=== PATIENT | female | born 1980 | race Caucasian/White ===

== ENCOUNTER → 2017-06-27 | Outpatient (CLI) | payer OTHER | END | disposition home or self-care (01) | LOC: C.PATHSPEC 17:24 | PROVIDERS: ATTEND Urology | DX: R31.9 Hematuria, unspecified (principal) ==

== ENCOUNTER → 2017-07-10 | Outpatient (CLI) | payer OTHER ==
[~2017-07-10] MED LIST: FUROSEMIDE INJ 10 MG/ML 2 ML VIAL IV ONE
--- NOTE | 2017-07-10 13:29 | DIAGNOSTIC IMAGING REPORT ---
RENAL SCAN DIURETIC (MAG 3) CLINICAL HISTORY: N13.30 HydronephrosisNO PRECERT REQUIRED PER [id number] hydronephrosis TECHNIQUE: Multi phase evaluation following the administration of 8.6 mCi technetium 99m MAG3. COMPARISON STUDY: None FINDINGS: Unremarkable vascular flow to both kidneys. Washout characteristics are unremarkable. Appropriate response to Lasix administration. No evidence for hydronephrosis or obstructive change. Split renal function demonstrates left contribute 52% and right 48% of total activity. IMPRESSION: 1. Normal study with generally symmetric vascular flow and washout characteristics. 2. Normal response to Lasix. 3. Split renal function demonstrates the left kidney to contribute 52% and the right 48% to total activity 4. No evidence for obstructive change or hydronephrosis within limitations of this exam. The above report was generated using voice recognition software. It may contain grammatical, syntax or spelling errors. Electronically signed by: Manuelito Rizvi M.D. 07/10/2017 1:28 PM Dictated Date/Time: 07/10/2017 1:25 PM
== END | disposition home or self-care (01) ==
LOC: C.NUCL 11:49
PROVIDERS: ATTEND Urology
DX: N13.30 Unspecified hydronephrosis (principal)

== ENCOUNTER 2022-11-02 20:53 | Inpatient (IN) ==
[2022-11-02 22:25] LABS: Albumin Globulin Ratio 1.4 (0.9-2); BUN Creatinine Ratio 19.5 (10-20); Bilirubin,Total 0.7 mg/dl (0.2-1.0); Calcium 9.2 mg/dl (8.6-10.3); Creatinine Clr Calc Pharmacy 93.8 ml/min; Est GFR (African American) 102.3 ml/min; Est GFR (Non-African American) 88.3 ml/min; Globulin 2.9 gm/dl (2.5-4.0); Potassium 3.4 mmol/L (3.5-5.1); Total Protein 6.9 gm/dl (6.0-8.3)
[2022-11-02 22:31] LABS: Troponin I High Sensitivity 3.9 pg/ml (0-14)
[2022-11-02 22:32] LABS: Partial Thromboplastin Ratio 1.1; Prothrombin Time 11.1 Seconds (9.0-12.0)
[2022-11-02 22:44] LABS: Hematocrit (blood only) 35.8 % (37.0-47.0); Hemoglobin 12.6 g/dl (12.0-16.0); Lyme Ab IgG w/WB Rflx Negative (Negative); Lyme Ab IgM w/WB Rflx Negative (Negative); Mean Corpuscular Hemoglobin 26.8 pg (25.0-34.0); Mean Corpuscular Hgb Conc 35.2 g/dL (32.0-36.0); Mean Corpuscular Volume 76.2 fL (80.0-100.0); Platelet Count 63 K/uL (130-400); RDW Coefficient of Variation 16.8 % (11.5-14.5); RDW Standard Deviation 46.5 fL (36.4-46.3)
[2022-11-02 22:51] LABS: Basophils # (auto) 0.02 K/uL (0-0.2); Basophils % (auto) 1.3 %; Eosinophils # (auto) 0.04 K/uL (0-0.50); Eosinophils % (auto) 2.5 %; Immature Granulocytes # (auto) 0.01 K/uL (0.01-0.20); Immature Granulocytes % (auto) 0.6 %; Lymphocytes % (auto) 31.3 %; Monocytes # (auto) 0.22 K/uL (0.11-0.59); Monocytes % (auto) 13.8 %; Neutrophils # (auto) 0.81 K/uL (1.40-6.50); Neutrophils % (auto) 50.5 %; Platelet Estimate Decreased (Normal)
[2022-11-02] MEDS ORDERED: DOXYCYCLINE HYCLATE 100 MG CAP PO STA (22:54)
[2022-11-02] MEDS ORDERED: SODIUM CHLORIDE 0.9% 1000ML 1,000 ML IV SCH (23:00)
[2022-11-02 23:07] LABS: Appearance Urine Cloudy (Clear); Bilirubin Urine Negative (Negative); Blood Urine 3+ (Negative); Color Urine Yellow; Glucose Urine UA Negative (Negative); Ketones Urine Negative (Negative); Leukocyte Esterase Urine Trace (Negative); Nitrite Urine Negative (Negative); Protein Urine 1+ (Negative); Specific Gravity Urine 1.006 (1.000-1.030); Urobilinogen Urine Negative (Negative)
--- NOTE | 2022-11-02 23:13 | Emergency Department Note ---
Impression & Plan Acute hyponatremia, Neutropenia, Fatigue, Myalgia ED Provider Note Provider: Magdaleno Mayes MD DATE OF SERVICE: 11/02/2022 CHIEF COMPLAINT: Myalgias, fatigue HISTORY OF PRESENT ILLNESS: Patient is a 42-year-old female history of hypertension presenting here referred from [facility] urgent care due to abnormal labs today. Patient evidently began with some fever myalgias with some headache on Sunday. Had a fever to 102. Maybe a slight sore throat and slight cough according to her. Went to care works for evaluation yesterday. Has been hiking recently but no recent travel. No sick contacts noted. Has a history of some blood in the urine and when she is ill she notices this and has noticed it recently. Denies significant urinary burning. Had outpatient labs obtained. Negative strep by report. Started on cefdinir in case there was any urine infection however or strep present. Lyme test was pending. Had blood work sent today with evidence of leukopenia newly as well as hyponatremia. Sent in for evaluation. States has been able to hydrate fairly well. Denies significant GI symptoms. Little more bilateral neck pain today but moving the head freely. No trauma or syncope. No palpitations of significance noted. Has been taking cefdinir today. PAST MEDICAL HISTORY: As noted above MEDICATIONS: Reviewed home medications SOCIAL HISTORY: PHYSICAL EXAM: GENERAL: alert and oriented in no acute distress on stretcher Head: normocephalic and atraumatic EYES: No injection, discharge or icterus. NECK: Trachea midline. Supple. ENT: Mucous membranes pink and moist. LUNGS: Airway patent. No retractions or tachypnea HEART: Regular rate and rhythm. No chest wall tenderness ABDOMEN: Soft and non-tender, without guarding or rebound. SKIN: Acyanotic, warm, dry, without rashes EXTREMITIES: Without swelling, tenderness or deformity NEUROLOGICAL: No focal deficits. No aphasia. No facial droop or slurred speech. Normal strength and tone in the extremities. Sensation to gross touch normal. Ambulatory. EK bpm normal sinus rhythm. No PVC. No acute ST segment elevation or depression with QTc of 428. Nonspecific anterior T wave changes. CONTINUOUS CARDIAC MONITORING: was ordered and showed a heart rate of 70s bpm in normal sinus rhythm Patient's laboratory studies and imaging reviewed. Differential includes Infection, dehydration, metabolic abnormality, hypo/hyperglycemia, electrolyte disturbance, anemia, hypoxia, cardiac sources, neurologic, as well as other pathologies. IMPRESSION/MEDICAL DECISION MAKING: Patient with some nonspecific infectious symptoms. From the [facility] epic record record reviewed labs with a Lyme pending. Send a Lyme here which was negative. Seems concerning for anaplasmosis and smear was sent. Urinalysis with some blood but not clearly infected. Sent for culture. Leukopenia today with thrombocytopenia. No significant anemia. Hyponatremia noted. Has been hydrating well. Osmolality sent. Will empirically start on doxycycline at this time. Started on some IV fluid replenishment. Not acutely confused but given the trend concern for possible worsening hyponatremia discussed with her further observation overnight. Does not appear meningitic to me. Benign abdomen otherwise. Not having significant respiratory symptoms and doubt pneumonia. Has barely seen nephrology regarding her hematuria and there is questions of IgA nephropathy but undergoing work-up with [facility] for this. Does not seem to be in any acute renal failure. DIAGNOSIS: Hyponatremia, thrombocytopenia, leukopenia/neutropenia DISPOSITION: Hospitalist will evaluate Patient was agreeable with this plan. Past Med/Surg History Medical History (Updated 11/02/22 @ 23:31 by Magdaleno Mayes M.D.) ADD (attention deficit disorder) without hyperactivity Surgical History (Updated 12/20/20 @ 15:37 by Nay Michaud RN) History of dental surgery Social History Smoking Status: Never smoker Preferred Language: Greek Feels Safe at Home: Yes Allergies Allergies Allergy/AdvReac Type Severity Reaction Status Date / Time ciprofloxacin Allergy Verified 09/20/20 09:10 corn syrup Allergy Verified 12/20/20 15:36 soy Allergy fatigue, Verified 12/20/20 15:36 headache, nausea, vomiting wheat Allergy fatigue Verified 12/20/20 15:36 and headache FLUROQUIONODE Allergy Unknown UKN Uncoded 09/20/20 08:59 Home Meds Home Medications Medication Instructions Recorded Confirmed chlorpheniramine maleate 4 mg 4 mg PO Q6H PRN 09/20/20 09/20/20 tablet losartan 25 mg tablet 25 mg PO DAILY 09/20/20 09/20/20 Results & Data (ED) Vital Signs Vital Signs - 24 hr 11/02/22 20:54 11/02/22 21:47 11/02/22 22:24 Temperature 36.8 C Temperature Source Temporal Artery Scan Pulse Rate 66 73 Pulse Rate from SpO2 Sensor Pulse Rhythm Respiratory Rate 17 Respiratory Effort / Characteristics Non-Labored Spontaneous Non-Labored Respiratory Depth Normal Normal Blood Pressure 148/101 H Blood Pressure Mean 116 Blood Pressure Position Sitting Pulse Oximetry 98 Oxygen Delivery Method Room Air Sepsis Recent Fever Within 48 Hours Yes Sepsis New/Unexplained Change in Mental Status No Sepsis Action Taken by Nursing No Action Required 11/02/22 22:24 11/02/22 21:48 11/02/22 22:00 Temperature Temperature Source Pulse Rate 75 71 Pulse Rate from SpO2 Sensor 75 71 Pulse Rhythm Regular Respiratory Rate 17 22 Respiratory Effort / Characteristics Respiratory Depth Blood Pressure 144/96 H Blood Pressure Mean 112 Blood Pressure Position Pulse Oximetry 98 97 Oxygen Delivery Method Room Air Room Air Sepsis Recent Fever Within 48 Hours Sepsis New/Unexplained Change in Mental Status Sepsis Action Taken by Nursing 11/02/22 22:15 11/02/22 22:31 11/02/22 22:57 Temperature Temperature Source Pulse Rate 73 80 72 Pulse Rate from SpO2 Sensor 73 77 Pulse Rhythm Respiratory Rate 18 20 21 Respiratory Effort / Characteristics Respiratory Depth Blood Pressure 142/122 H 141/98 H Blood Pressure Mean 128 112 Blood Pressure Position Pulse Oximetry 98 96 98 Oxygen Delivery Method Room Air Room Air Sepsis Recent Fever Within 48 Hours Sepsis New/Unexplained Change in Mental Status Sepsis Action Taken by Nursing 11/02/22 23:00 11/02/22 23:31 Temperature Temperature Source Pulse Rate 72 69 Pulse Rate from SpO2 Sensor 72 69 Pulse Rhythm Respiratory Rate 22 22 Respiratory Effort / Characteristics Respiratory Depth Blood Pressure 153/96 H 138/84 Blood Pressure Mean 115 102 Blood Pressure Position Pulse Oximetry 99 99 Oxygen Delivery Method Room Air Room Air Sepsis Recent Fever Within 48 Hours Sepsis New/Unexplained Change in Mental Status Sepsis Action Taken by Nursing Laboratory Data 11/02/22 21:40 11/02/22 21:40 Lab Results 11/02/22 11/02/22 11/02/22 Range/Units 21:40 21:40 21:40 WBC 1.60 L (4.8-10.8) K/ul RBC 4.70 (4.20-5.40) M/uL Hgb 12.6 (12.0-16.0) g/dl Hct 35.8 L (37.0-47.0) % MCV 76.2 L (80.0-100.0) fL MCH 26.8 (25.0-34.0) pg MCHC 35.2 (32.0-36.0) g/dL RDW Std Deviation 46.5 H (36.4-46.3) fL RDW Coeff of [place] 16.8 H (11.5-14.5) % Plt Count 63 L (130-400) K/uL Immature Gran % (Auto) 0.6 % Neut % (Auto) 50.5 % Lymph % (Auto) 31.3 % [place] % (Auto) 13.8 % Eos % (Auto) 2.5 % Baso % (Auto) 1.3 % Neut # (Auto) 0.81 L* (1.40-6.50) K/uL Lymph # (Auto) 0.50 L (1.2-3.4) K/uL [place] # (Auto) 0.22 (0.11-0.59) K/uL Eos # (Auto) 0.04 (0-0.50) K/uL Baso # (Auto) 0.02 (0-0.2) K/uL Immature Gran # (Auto) 0.01 (0.01-0.20) K/uL Platelet Estimate Decreased L (Normal) PT 11.1 (9.0-12.0) Seconds INR 1.0 (0.9-1.1) APTT 30.0 (21.0-31.0) Seconds PTT Ratio 1.1 Sodium 128 L (136-145) mmol/L Potassium 3.4 L (3.5-5.1) mmol/L Chloride 92 L (98-107) mmol/L Carbon Dioxide 27 (21-32) mmol/L Anion Gap 9 (3-11) BUN 16 (6-23) mg/dl Creatinine 0.82 (0.6-1.2) mg/dl Est Cr Clr Drug Dosing 93.8 ml/min Est GFR ( Amer) 102.3 ml/min Est GFR (Non-Af Amer) 88.3 ml/min BUN/Creatinine Ratio 19.5 (10-20) Glucose 109 H (70-99(Fasting)) mg/dl Osmolality (280-300) mOsm/kg Calcium 9.2 (8.6-10.3) mg/dl Total Bilirubin 0.7 (0.2-1.0) mg/dl AST 36 (13-39) U/L ALT 30 (7-52) U/L Alkaline Phosphatase 51 (34-104) U/L Troponin I High Sens 3.9 (0-14) pg/ml Total Protein 6.9 (6.0-8.3) gm/dl Albumin 4.0 (3.4-5.0) gm/dl Globulin 2.9 (2.5-4.0) gm/dl Albumin/Globulin Ratio 1.4 (0.9-2) TSH (0.300-4.500) uIu/ml Urine Color Urine Appearance (Clear) Urine pH (4.5-7.5) Ur Specific [place] (1.000-1.030) Urine Protein (Negative) Urine Glucose (UA) (Negative) Urine Ketones (Negative) Urine Blood (Negative) Urine Nitrite (Negative) Urine Bilirubin (Negative) Urine Urobilinogen (Negative) Ur Leukocyte Esterase (Negative) Urine WBC (Auto) (0-5) /hpf Urine RBC (Auto) (0-4) /hpf U Hyaline Cast (Auto) (0-5) /lpf U Epithel Cells (Auto) (0-5) /lpf Urine Bacteria (Auto) (Negative) Urine Osmolality (500-800) mOsm/kg Anaplasma Smear Lyme Disease IgG Ab (Negative) Lyme Disease IgM Ab (Negative) 11/02/22 11/02/22 11/02/22 Range/Units 21:40 21:40 21:40 WBC (4.8-10.8) K/ul RBC (4.20-5.40) M/uL Hgb (12.0-16.0) g/dl Hct (37.0-47.0) % MCV (80.0-100.0) fL MCH (25.0-34.0) pg MCHC (32.0-36.0) g/dL RDW Std Deviation (36.4-46.3) fL RDW Coeff of [place] (11.5-14.5) % Plt Count (130-400) K/uL Immature Gran % (Auto) % Neut % (Auto) % Lymph % (Auto) % [place] % (Auto) % Eos % (Auto) % Baso % (Auto) % Neut # (Auto) (1.40-6.50) K/uL Lymph # (Auto) (1.2-3.4) K/uL [place] # (Auto) (0.11-0.59) K/uL Eos # (Auto) (0-0.50) K/uL Baso # (Auto) (0-0.2) K/uL Immature Gran # (Auto) (0.01-0.20) K/uL Platelet Estimate (Normal) PT (9.0-12.0) Seconds INR (0.9-1.1) APTT (21.0-31.0) Seconds PTT Ratio Sodium (136-145) mmol/L Potassium (3.5-5.1) mmol/L Chloride (98-107) mmol/L Carbon Dioxide (21-32) mmol/L Anion Gap (3-11) BUN (6-23) mg/dl Creatinine (0.6-1.2) mg/dl Est Cr Clr Drug Dosing ml/min Est GFR ( Amer) ml/min Est GFR (Non-Af Amer) ml/min BUN/Creatinine Ratio (10-20) Glucose (70-99(Fasting)) mg/dl Osmolality 267 L (280-300) mOsm/kg Calcium (8.6-10.3) mg/dl Total Bilirubin (0.2-1.0) mg/dl AST (13-39) U/L ALT (7-52) U/L Alkaline Phosphatase (34-104) U/L Troponin I High Sens (0-14) pg/ml Total Protein (6.0-8.3) gm/dl Albumin (3.4-5.0) gm/dl Globulin (2.5-4.0) gm/dl Albumin/Globulin Ratio (0.9-2) TSH 3.519 (0.300-4.500) uIu/ml Urine Color Urine Appearance (Clear) Urine pH (4.5-7.5) Ur Specific [place] (1.000-1.030) Urine Protein (Negative) Urine Glucose (UA) (Negative) Urine Ketones (Negative) Urine Blood (Negative) Urine Nitrite (Negative) Urine Bilirubin (Negative) Urine Urobilinogen (Negative) Ur Leukocyte Esterase (Negative) Urine WBC (Auto) (0-5) /hpf Urine RBC (Auto) (0-4) /hpf U Hyaline Cast (Auto) (0-5) /lpf U Epithel Cells (Auto) (0-5) /lpf Urine Bacteria (Auto) (Negative) Urine Osmolality (500-800) mOsm/kg Anaplasma Smear Lyme Disease IgG Ab Negative (Negative) Lyme Disease IgM Ab Negative (Negative) 11/02/22 11/02/22 11/02/22 Range/Units 21:40 22:57 22:57 WBC (4.8-10.8) K/ul RBC (4.20-5.40) M/uL Hgb (12.0-16.0) g/dl Hct (37.0-47.0) % MCV (80.0-100.0) fL MCH (25.0-34.0) pg MCHC (32.0-36.0) g/dL RDW Std Deviation (36.4-46.3) fL RDW Coeff of [place] (11.5-14.5) % Plt Count (130-400) K/uL Immature Gran % (Auto) % Neut % (Auto) % Lymph % (Auto) % [place] % (Auto) % Eos % (Auto) % Baso % (Auto) % Neut # (Auto) (1.40-6.50) K/uL Lymph # (Auto) (1.2-3.4) K/uL [place] # (Auto) (0.11-0.59) K/uL Eos # (Auto) (0-0.50) K/uL Baso # (Auto) (0-0.2) K/uL Immature Gran # (Auto) (0.01-0.20) K/uL Platelet Estimate (Normal) PT (9.0-12.0) Seconds INR (0.9-1.1) APTT (21.0-31.0) Seconds PTT Ratio Sodium (136-145) mmol/L Potassium (3.5-5.1) mmol/L Chloride (98-107) mmol/L Carbon Dioxide (21-32) mmol/L Anion Gap (3-11) BUN (6-23) mg/dl Creatinine (0.6-1.2) mg/dl Est Cr Clr Drug Dosing ml/min Est GFR ( Amer) ml/min Est GFR (Non-Af Amer) ml/min BUN/Creatinine Ratio (10-20) Glucose (70-99(Fasting)) mg/dl Osmolality (280-300) mOsm/kg Calcium (8.6-10.3) mg/dl Total Bilirubin (0.2-1.0) mg/dl AST (13-39) U/L ALT (7-52) U/L Alkaline Phosphatase (34-104) U/L Troponin I High Sens (0-14) pg/ml Total Protein (6.0-8.3) gm/dl Albumin (3.4-5.0) gm/dl Globulin (2.5-4.0) gm/dl Albumin/Globulin Ratio (0.9-2) TSH (0.300-4.500) uIu/ml Urine Color Yellow Urine Appearance Cloudy A (Clear) Urine pH 7.0 (4.5-7.5) Ur Specific [place] 1.006 (1.000-1.030) Urine Protein 1+ H (Negative) Urine Glucose (UA) Negative (Negative) Urine Ketones Negative (Negative) Urine Blood 3+ H (Negative) Urine Nitrite Negative (Negative) Urine Bilirubin Negative (Negative) Urine Urobilinogen Negative (Negative) Ur Leukocyte Esterase Trace H (Negative) Urine WBC (Auto) 5-10 H (0-5) /hpf Urine RBC (Auto) >30 H (0-4) /hpf U Hyaline Cast (Auto) 0 (0-5) /lpf U Epithel Cells (Auto) 10-20 H (0-5) /lpf Urine Bacteria (Auto) Negative (Negative) Urine Osmolality 155 L (500-800) mOsm/kg Anaplasma Smear See Comment Lyme Disease IgG Ab (Negative) Lyme Disease IgM Ab (Negative) Administered Medications Discontinued Medications Doxycycline Hyclate (Doxycycline Hyclate 100 Mg Cap) 100 mg PO NOW STA Stop: 11/02/22 22:55 Last Admin: 11/02/22 23:44 Dose: 100 mg Documented By: VÍCTOR Sodium Chloride (Nss 1000ml) 1,000 mls @ 80 mls/hr IV .[id number] JAIME Stop: 12/02/22 22:59 Last Admin: 11/02/22 23:42 Dose: 80 mls/hr Documented By: VÍCTOR Discharge Plan Visit Data Chief Complaint: Abnormal Labs/Diagnostic Testing Stated Complaint: REF BY DOC,ELECTROLYTE INBALANCE,FEVER ED Provider: Magdaleno Mayes Discharge Problem: Acute hyponatremia, Neutropenia, Fatigue, Myalgia Patient Disposition: Being Evaluated by Hospitalist Forms Stand Alone Forms: [facility] [employer] Prescriptions Prescriptions: No Action losartan 25 mg tablet 25 mg PO DAILY chlorpheniramine maleate 4 mg tablet 4 mg PO Q6H PRN Referrals Referrals: Tosha Vaca MD [Primary Care Provider] - Neutropenia Qualifiers: Neutropenia type: unspecified Qualified Code(s): D70.9 - Neutropenia, unspecified Fatigue Qualifiers: Fatigue type: unspecified Qualified Code(s): R53.83 - Other fatigue
[2022-11-02 23:18] LABS: Cast Urine Automated 0 /lpf (0-5); RBC Urine Automated >30 /hpf (0-4)
[2022-11-02 23:19] LABS: Bacteria Urine Automated Negative (Negative)
[2022-11-02] MEDS ORDERED: POTASSIUM CHLORIDE PWD 20 MEQ PACK PO STA (23:28)
[2022-11-02] MEDS ORDERED: SODIUM CHLORIDE 0.9% 1000ML 500 ML IV ONE (23:56)
[2022-11-03 00:22] LABS: Magnesium 1.9 mg/dl (1.7-2.4)
--- NOTE | 2022-11-03 01:14 | History & Physical Report ---
Date of Service November 03, 2022 Assessment & Plan (1) Acute hyponatremia: Plan: Secondary to complicated UTI, no sepsis for now Rule out tickborne infection given leukopenia and thrombocytopenia CBC hypertension, stable Hypokalemia secondary to illness ADD, stable on as needed methylphenidate for now gestational DM as per records possible IgA nephropathy as per records, renal biopsy recommended [facility] Nephrology past tobacco abuse Medical telemetry Careful correction of sodium Urine CS, Ceftriaxone Follow peripheral blood smear, outpatient tickborne panel results Replace potassium DVT prophylaxis. SCDs Re: Thrombocytopenia Full code Text document was generated using [employer] voice recognition software. It may contain grammatical or spelling errors. Kindly contact undersigned for clarification of any documentation item in question. History of Present Illness Chief Complaint: Abnormal blood work Primary Care Provider: Tosha Vaca MD History obtained from patient and records. Medical history significant for hypertension, ADD, gestational DM as per records, hematuria (possible IgA nephropathy as per records), past tobacco abuse. Few days history of fever, chills, slight sore throat, headache, muscle aches, and nausea. Hematuria with some flank pain. Patient not sure about recent tick bites but exposed to ticks due to her love for the outdoors. Patient seen at urgent care center 2 days ago. Patient started on cefdinir course for possible UTI. Some improvement in symptoms. Outpatient COVID and strep tests negative. Urine CS no growth. Patient noted to be leukopenic and thrombocytopenic on outpatient blood work, Serum sodium noted to be 128. Tickborne panel pending. Patient directed to ER for evaluation. IV doxycycline administered in ER for possible tickborne infection. 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 Allergies Allergy/AdvReac Type Severity Reaction Status Date / Time ciprofloxacin Allergy Verified 09/20/20 09:10 corn syrup Allergy Verified 12/20/20 15:36 soy Allergy fatigue, Verified 12/20/20 15:36 headache, nausea, vomiting wheat Allergy fatigue Verified 12/20/20 15:36 and headache FLUROQUIONODE Allergy Unknown UKN Uncoded 09/20/20 08:59 Home Medications Medication Instructions Recorded Confirmed Type dextroamphetamine-amphetamine 12.5 12.5 mg PO BID 11/03/22 11/03/22 History mg tablet (Adderall) indapamide 1.25 mg tablet 1.25 mg PO DAILY 11/03/22 11/03/22 History losartan 50 mg tablet 100 mg PO DAILY 11/03/22 11/03/22 History methylphenidate HCl 20 mg biphasic 30 mg PO DAILY 11/03/22 11/03/22 History 30-70 capsule,extended release propranolol 10 mg tablet 10 mg PO QID PRN Anxiety 11/03/22 11/03/22 History Past Med/Surg History Medical History (Updated 11/02/22 @ 23:31 by Magdaleno Mayes M.D.) ADD (attention deficit disorder) without hyperactivity Surgical History (Updated 12/20/20 @ 15:37 by Nay Michaud RN) History of dental surgery Social History Smoking Status: Never smoker Hx Alcohol Use: Yes Alcohol type: beer, wine, hard liquor and other Hx Substance Use: No Preferred Language: Nauruan Communication Ability: Effective Deputy Fire Marshal Required: No Beliefs That Will Affect Care: None Current Living Situation: Spouse and Family Other Information That Helps Us Care for You: No Feels Safe at Home: Yes Safety Concerns: Feels Safe At This Time Assistive Devices: None Review of Systems Review of Systems: As per HPI, all other systems reviewed and negative Physical Exam Physical Exam: GENERAL: Comfortable, pleasant, no respiratory distress SKIN: Normal color, warm HEENT: [place] palpebral conjunctivae, no ptosis, dry buccal mucosa NECK : Supple, no tenderness CHEST : CTA, no tenderness HEART : RRR, no obvious murmurs ABDOMEN: Some distention, nontender EXTREMITIES : No LE swelling/tenderness, no other conspicuous deformities noted NEUROLOGIC : Coherent, no facial asymmetry, no other gross focality Results & Data Results & Data Vital Signs (Past 12 Hours) Vital Signs Temp Pulse Resp BP Pulse Ox O2 Del Method 11/03/22 00:01 71 16 137/87 99 Room Air 11/02/22 23:31 69 22 138/84 99 Room Air 11/02/22 23:00 72 22 153/96 H 99 Room Air 11/02/22 22:57 72 21 141/98 H 98 Room Air 11/02/22 22:31 80 20 142/122 H 96 Room Air 11/02/22 22:15 73 18 98 11/02/22 22:00 71 22 144/96 H 97 Room Air 11/02/22 21:48 75 17 98 11/02/22 22:24 Room Air 11/02/22 21:47 73 11/02/22 20:54 36.8 C 66 17 148/101 H 98 Room Air Laboratory Results Laboratory Results WBC 1.60 K/ul (4.8-10.8) L 11/02/22 21:40 RBC 4.70 M/uL (4.20-5.40) 11/02/22 21:40 Hgb 12.6 g/dl (12.0-16.0) 11/02/22 21:40 Hct 35.8 % (37.0-47.0) L 11/02/22 21:40 MCV 76.2 fL (80.0-100.0) L 11/02/22 21:40 MCH 26.8 pg (25.0-34.0) 11/02/22 21:40 MCHC 35.2 g/dL (32.0-36.0) 11/02/22 21:40 RDW Std Deviation 46.5 fL (36.4-46.3) H 11/02/22 21:40 RDW Coeff of [place] 16.8 % (11.5-14.5) H 11/02/22 21:40 Plt Count 63 K/uL (130-400) L 11/02/22 21:40 Immature Gran % (Auto) 0.6 % 11/02/22 21:40 Neut % (Auto) 50.5 % 11/02/22 21:40 Lymph % (Auto) 31.3 % 11/02/22 21:40 [place] % (Auto) 13.8 % 11/02/22 21:40 Eos % (Auto) 2.5 % 11/02/22 21:40 Baso % (Auto) 1.3 % 11/02/22 21:40 Neut # (Auto) 0.81 K/uL (1.40-6.50) L* 11/02/22 21:40 Lymph # (Auto) 0.50 K/uL (1.2-3.4) L 11/02/22 21:40 [place] # (Auto) 0.22 K/uL (0.11-0.59) 11/02/22 21:40 Eos # (Auto) 0.04 K/uL (0-0.50) 11/02/22 21:40 Baso # (Auto) 0.02 K/uL (0-0.2) 11/02/22 21:40 Immature Gran # (Auto) 0.01 K/uL (0.01-0.20) 11/02/22 21:40 Platelet Estimate Decreased (Normal) L 11/02/22 21:40 PT 11.1 Seconds (9.0-12.0) 11/02/22 21:40 INR 1.0 (0.9-1.1) 11/02/22 21:40 APTT 30.0 Seconds (21.0-31.0) 11/02/22 21:40 PTT Ratio 1.1 11/02/22 21:40 Sodium 128 mmol/L (136-145) L 11/02/22 21:40 Potassium 3.4 mmol/L (3.5-5.1) L 11/02/22 21:40 Chloride 92 mmol/L (98-107) L 11/02/22 21:40 Carbon Dioxide 27 mmol/L (21-32) 11/02/22 21:40 Anion Gap 9 (3-11) 11/02/22 21:40 BUN 16 mg/dl (6-23) 11/02/22 21:40 Creatinine 0.82 mg/dl (0.6-1.2) 11/02/22 21:40 Est Cr Clr Drug Dosing 93.8 ml/min 11/02/22 21:40 Est GFR ( Amer) 102.3 ml/min 11/02/22 21:40 Est GFR (Non-Af Amer) 88.3 ml/min 11/02/22 21:40 BUN/Creatinine Ratio 19.5 (10-20) 11/02/22 21:40 Glucose 109 mg/dl (70-99(Fasting)) H 11/02/22 21:40 Osmolality 267 mOsm/kg (280-300) L 11/02/22 21:40 Calcium 9.2 mg/dl (8.6-10.3) 11/02/22 21:40 Magnesium 1.9 mg/dl (1.7-2.4) 11/02/22 21:40 Total Bilirubin 0.7 mg/dl (0.2-1.0) 11/02/22 21:40 AST 36 U/L (13-39) 11/02/22 21:40 ALT 30 U/L (7-52) 11/02/22 21:40 Alkaline Phosphatase 51 U/L (34-104) 11/02/22 21:40 Troponin I High Sens 3.9 pg/ml (0-14) 11/02/22 21:40 Total Protein 6.9 gm/dl (6.0-8.3) 11/02/22 21:40 Albumin 4.0 gm/dl (3.4-5.0) 11/02/22 21:40 Globulin 2.9 gm/dl (2.5-4.0) 11/02/22 21:40 Albumin/Globulin Ratio 1.4 (0.9-2) 11/02/22 21:40 TSH 3.519 uIu/ml (0.300-4.500) 11/02/22 21:40 Urine Color Yellow 11/02/22 22:57 Urine Appearance Cloudy (Clear) A 11/02/22 22:57 Urine pH 7.0 (4.5-7.5) 11/02/22 22:57 Ur Specific [place] 1.006 (1.000-1.030) 11/02/22 22:57 Urine Protein 1+ (Negative) H 11/02/22 22:57 Urine Glucose (UA) Negative (Negative) 11/02/22 22:57 Urine Ketones Negative (Negative) 11/02/22 22:57 Urine Blood 3+ (Negative) H 11/02/22 22:57 Urine Nitrite Negative (Negative) 11/02/22 22:57 Urine Bilirubin Negative (Negative) 11/02/22 22:57 Urine Urobilinogen Negative (Negative) 11/02/22 22:57 Ur Leukocyte Esterase Trace (Negative) H 11/02/22 22:57 Urine WBC (Auto) 5-10 /hpf (0-5) H 11/02/22 22:57 Urine RBC (Auto) >30 /hpf (0-4) H 11/02/22 22:57 U Hyaline Cast (Auto) 0 /lpf (0-5) 11/02/22 22:57 U Epithel Cells (Auto) 10-20 /lpf (0-5) H 11/02/22 22:57 Urine Bacteria (Auto) Negative (Negative) 11/02/22 22:57 Urine Osmolality 155 mOsm/kg (500-800) L 11/02/22 22:57 Anaplasma Smear See Comment 11/02/22 21:40 Lyme Disease IgG Ab Negative (Negative) 11/02/22 21:40 Lyme Disease IgM Ab Negative (Negative) 11/02/22 21:40 SARS-CoV-2, RNA, NAAT NEGATIVE (NEGATIVE) 11/02/22 23:36 Diagnostic Findings Chest x-ray as per my interpretation no infiltrate EKG as per my interpretation : Rate 70, NSR, normal axis, incomplete RBB, T wave abnormalities anteroseptal leads
[2022-11-03] MEDS ORDERED: cefTRIAXone SODIUM 2,000 MG/70 ML BAG IV STA (01:17)
[2022-11-03] MEDS ORDERED: LOSARTAN POTASSIUM 50 MG TAB PO STA (01:17)
[2022-11-03] MEDS ORDERED: oxyCODONE HCL IR 5 MG TAB (IMMEDIATE RELEASE) PO PRN (01:17)
[2022-11-03] MEDS ORDERED: PROMETHAZINE HCL 12.5 MG in SODIUM CHLORIDE 0.9% 50 ML IV PRN (01:17)
[2022-11-03] MEDS ORDERED: ACETAMINOPHEN 325 MG TAB PO PRN (02:51)
[2022-11-03 03:37] LABS: Appearance Urine Clear (Clear); Bacteria Urine Automated Negative (Negative); Bilirubin Urine Negative (Negative); Blood Urine 3+ (Negative); Cast Urine Automated 0 /lpf (0-5); Color Urine Yellow; Glucose Urine UA Negative (Negative); Ketones Urine Negative (Negative); Leukocyte Esterase Urine Trace (Negative); Nitrite Urine Negative (Negative); Protein Urine Trace (Negative); RBC Urine Automated >30 /hpf (0-4); Specific Gravity Urine 1.004 (1.000-1.030); Urobilinogen Urine Negative (Negative)
--- NOTE | 2022-11-03 04:14 | CT Scan Report ---
Exam(s): CT HEAD Without Contrast EXAM: CT Head Without Intravenous Contrast CLINICAL HISTORY: Reason for exam: rg, thrombocytopenia. TECHNIQUE: Axial computed tomography images of the head/brain without intravenous contrast. CTDI is 38.55 mGy and DLP is 624.41 mGy-cm. Automated exposure control was utilized for the study. A dose lowering technique was utilized adhering to the principles of ALARA. COMPARISON: None FINDINGS: Brain: No acute infarct or hemorrhage. No extra-axial fluid collection. No mass effect or midline shift. Ventricles and sulci: Normal. No ventriculomegaly or intraventricular hemorrhage. Bones: Normal. No bony lesion or acute fracture. Subcutaneous tissues: Normal. Sinuses: Normal. No air-fluid levels or mucosal thickening. Mastoid air cells: Normal. Orbits: Grossly unremarkable. IMPRESSION: No acute intracranial abnormality. Electronically signed by: Alicia Snyder M.D. 11/03/22 04:13 AM
--- NOTE | 2022-11-03 07:35 | XRay Report ---
XR chest 1V portable CLINICAL HISTORY: Hyponatremia. COMPARISON STUDY: No previous studies for comparison. FINDINGS: Lung volumes are normal. Lungs are clear. No pulmonary nodules are identified however sensi tivity for detection of small pulmonary nodules is diminished given radiographic technique. There is no pneumothorax or pleural effusion. Cardiac size is normal. Mediastinal contours are normal. There i s no evidence for pulmonary edema. IMPRESSION: No acute cardiopulmonary findings. ACT 112: Negative or not required by law. Electronically signed by: Agus Mathew M.D. 11/03/2022 7:34 AM
[2022-11-03 07:47] LABS: Hematocrit (blood only) 33.6 % (37.0-47.0); Hemoglobin 11.6 g/dl (12.0-16.0); Mean Corpuscular Hemoglobin 26.8 pg (25.0-34.0); Mean Corpuscular Hgb Conc 34.5 g/dL (32.0-36.0); Mean Corpuscular Volume 77.6 fL (80.0-100.0); Platelet Count 78 K/uL (130-400); RDW Coefficient of Variation 16.9 % (11.5-14.5); RDW Standard Deviation 47.8 fL (36.4-46.3); Red Blood Count 4.33 M/uL (4.20-5.40); White Blood Count 1.84 K/ul (4.8-10.8)
[2022-11-03 07:57] LABS: Calcium 8.7 mg/dl (8.6-10.3); Creatinine Clr Calc Pharmacy 92.4 ml/min; Est GFR (African American) 100.8 ml/min; Potassium 3.7 mmol/L (3.5-5.1)
[2022-11-03 08:11] LABS: RBC Morphology Unremarkable
[2022-11-03 08:12] LABS: Basophils # (auto) 0.02 K/uL (0-0.2); Basophils % (auto) 1.1 %; Eosinophils # (auto) 0.03 K/uL (0-0.50); Eosinophils % (auto) 1.6 %; Immature Granulocytes # (auto) 0.01 K/uL (0.01-0.20); Immature Granulocytes % (auto) 0.5 %; Lymphocytes # (auto) 0.86 K/uL (1.2-3.4); Lymphocytes % (auto) 46.7 %; Monocytes # (auto) 0.32 K/uL (0.11-0.59); Monocytes % (auto) 17.4 %; Neutrophils % (auto) 32.7 %
[2022-11-03] MEDS: DOXYCYCLINE HYCLATE 100 MG CAP PO SCH ×2 (09:27→20:48)
[2022-11-03] MEDS: FLUTICASONE PROPIONATE NA SPR 16 GM BTL SCH (09:27)
[2022-11-03] MEDS: MULTIVITAMIN TAB PO SCH (09:28)
--- NOTE | 2022-11-03 15:04 | Communication Note ---
Date of Service: November 03, 2022 Patient seen and examined at bedside. She is lying comfortably on the bed; not in any distress. Reports that she is feeling much better compared to admission. Sodium improved to 133. Continue on ceftriaxone and doxycycline. Blood culture ordered. Peripheral blood smear reviewed by pathologist; no schistocytes or concern for myelodysplasia. Constitutional: WD/WN, vitals as above, NAD, sitting up in bed, pleasant, conversing easily Respiratory: normal respiratory effort, lungs clear to auscultation, no wheeze, rales, rhonchi. Normal insp/exp effort, no accessory muscle use Cardiovascular: RRR, no murmur, no edema Vessels: no JVD or carotid bruit Chest: normal inspection of chest Abdomen: normal bowel sounds, soft, nontender, no hepatosplenomegaly Musculoskeletal: no cyanosis or clubbing, extremities motor strength 5/5 Skin: no rashes, warm and dry normal turgor Neurologic: PERRL, EOMI, accommodation nl, no face palsy, no dysarthria CN's II- XI intact bilaterally and moves all extremities Psychiatric: A+Ox3, euthymic affect
[2022-11-03] MEDS ORDERED: cefTRIAXone SODIUM 2,000 MG in DEXTROSE 5% 50 ML IV SCH (20:00)
[2022-11-03] MEDS ORDERED: LOSARTAN POTASSIUM 50 MG TAB PO SCH (21:00)
--- NOTE | 2022-11-04 06:41 | Electrocardiogram Report ---
Test Reason : Blood Pressure : / mmHG Vent. Rate : 069 BPM Atrial Rate : 069 BPM P-R Int : 144 ms QRS Dur : 088 ms QT Int : 400 ms P-R-T Axes : 046 017 028 degrees QTc Int : 428 ms Normal sinus rhythm Nonspecific T wave abnormality Incomplete right bundle branch block Abnormal ECG No previous ECGs available Confirmed by Quincy Thomas ([id number]) on 11/04/2022 6:41:41 AM Referred By: NO PCP Confirmed By:Quincy Thomas
[2022-11-04 07:26] LABS: Hematocrit (blood only) 32.8 % (37.0-47.0); Hemoglobin 11.3 g/dl (12.0-16.0); Mean Corpuscular Hemoglobin 26.9 pg (25.0-34.0); Mean Corpuscular Hgb Conc 34.5 g/dL (32.0-36.0); Mean Corpuscular Volume 78.1 fL (80.0-100.0); Platelet Count 97 K/uL (130-400); RDW Coefficient of Variation 17.3 % (11.5-14.5); RDW Standard Deviation 49.1 fL (36.4-46.3); White Blood Count 3.84 K/ul (4.8-10.8)
[2022-11-04 07:39] LABS: BUN Creatinine Ratio 14.6 (10-20); C Reactive Protein 1.1 mg/dl (0-0.5); Calcium 8.9 mg/dl (8.6-10.3); Creatinine Clr Calc Pharmacy 79.9 ml/min; Est GFR (African American) 84.5 ml/min; Est GFR (Non-African American) 72.9 ml/min; Potassium 3.7 mmol/L (3.5-5.1)
[2022-11-04 07:54] LABS: Basophils % (manual) 1 %; Eosinophils % (manual) 5 %; Lymphocytes % (manual) 37 %; Monocytes % (manual) 13 %; Neutrophils % (manual) 30 %; Reactive Lymphocytes % (manual) 14 %
[2022-11-04] MEDS: DOXYCYCLINE HYCLATE 100 MG CAP PO SCH (08:11)
[2022-11-04] MEDS: MULTIVITAMIN TAB PO SCH (08:11)
[2022-11-04] MEDS: FLUTICASONE PROPIONATE NA SPR 16 GM BTL SCH (08:12)
[2022-11-04] MEDS ORDERED: PROPRANOLOL HCL 10 MG TAB PO PRN (09:46)
[2022-11-04] MEDS ORDERED: AMPHETAMINE ASP/SULF/DEXTRAMPH 5 MG TAB PO SCH (12:00)
--- NOTE | 2022-11-04 13:51 | Discharge Summary ---
Date of Service November 04, 2022 Admission HPI Per Admitting Provider History obtained from patient and records. Medical history significant for hypertension, ADD, gestational DM as per records, hematuria (possible IgA nephropathy as per records), past tobacco abuse. Few days history of fever, chills, slight sore throat, headache, muscle aches, and nausea. Hematuria with some flank pain. Patient not sure about recent tick bites but exposed to ticks due to her love for the outdoors. Patient seen at urgent care center 2 days ago. Patient started on cefdinir course for possible UTI. Some improvement in symptoms. Outpatient COVID and strep tests negative. Urine CS no growth. Patient noted to be leukopenic and thrombocytopenic on outpatient blood work, Serum sodium noted to be 128. Tickborne panel pending. Patient directed to ER for evaluation. IV doxycycline administered in ER for possible tickborne infection. 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 Admission Exam Per Admitting Provider GENERAL: Comfortable, pleasant, no respiratory distress SKIN: Normal color, warm HEENT: [place] palpebral conjunctivae, no ptosis, dry buccal mucosa NECK : Supple, no tenderness CHEST : CTA, no tenderness HEART : RRR, no obvious murmurs ABDOMEN: Some distention, nontender EXTREMITIES : No LE swelling/tenderness, no other conspicuous deformities noted NEUROLOGIC : Coherent, no facial asymmetry, no other gross focality Principal Diagnosis Hyponatremia Febrile illness Leukopenia Thrombocytopenia Discharge Exam Constitutional: WD/WN, vitals as above, NAD, sitting up in bed, pleasant, conversing easily Respiratory: normal respiratory effort, lungs clear to auscultation, no wheeze, rales, rhonchi. Normal insp/exp effort, no accessory muscle use Cardiovascular: RRR, no murmur, no edema Vessels: no JVD or carotid bruit Chest: normal inspection of chest Abdomen: normal bowel sounds, soft, nontender, no hepatosplenomegaly Musculoskeletal: no cyanosis or clubbing, extremities motor strength 5/5 Skin: no rashes, warm and dry normal turgor Neurologic: PERRL, EOMI, accommodation nl, no face palsy, no dysarthria CN's II- XI intact bilaterally and moves all extremities Psychiatric: A+Ox3, euthymic affect Discharge Data Allergies Allergy/AdvReac Type Severity Reaction Status Date / Time ciprofloxacin Allergy Verified 09/20/20 09:10 corn syrup Allergy Verified 12/20/20 15:36 soy Allergy fatigue, Verified 12/20/20 15:36 headache, nausea, vomiting wheat Allergy fatigue Verified 12/20/20 15:36 and headache FLUROQUIONODE Allergy Unknown UKN Uncoded 09/20/20 08:59 Consultations 11/02/22 23:28 ED Decision to Admit Stat Ordered Studies 11/03/22 00:08 CT head/brain wo con Stat Hospital Course (1) Acute hyponatremia: (2) Febrile illness: Patient is a 42-year-old female with past medical history of ADD, hematuria who was referred to ED due to hyponatremia, leukopenia and thrombocytopenia on outpatient labs. Patient had history of fever, chills chills, sore throat, muscle aches recently and was seen in urgent care 2 days prior to admission. She was started on cefdinir for possible UTI. Her sodium on admission was 128. Patient was admitted to telemetry floor for further monitoring and treatment. Patient was treated with IV hydration; improvement was seen in the sodium level. Tickborne panel was sent; Lyme was negative. Peripheral blood smear consultation was done;no concern for myelodysplasia Blood culture did not show any growth. Patient was treated with ceftriaxone and doxycycline during the hospitalization. Her WBC count, platelet gradually improved. Patient was discharged home with instruction to follow-up with her primary care doctor next week. Patient still had Babesia DNA PCR, rickettsial antibody and Q fever panel pending. Indapamide was stopped at discharge due to hyponatremia Patient was advised to follow-up with nephrology for work-up of hematuria Total Time Total Time Spent Total Time Spent (In Minutes): 35 Total Time Includes: Examination of the Patient, Discharge Planning, Medication Reconciliation, Communication With Other Providers and Other Discharge Plan Discharge Items Patient Disposition: Home - Self-Care Reason For Visit: HYPONATREMIA, COMP UTI Discharge Diagnosis: Hyponatremia Febrile illness Activity: Resume your previous activity Non-emergency contact: Primary Care Provider Call non-emergency contact if: you have any medication questions and your symptoms worsen Follow-up/Referrals: Tosha Vaca MD [Primary Care Provider] - (Date & Time 11/10/2022 2:00 PM Provider Edith Jarquin, DO Department Family [facility] ) Diet: Regular Addtl Attending Provider Instructions: You were admitted to the hospital with low WBC, platelet count and sodium. The WBC and platelet count are improving. Sodium level normalized to 136. We are stopping Indapamide. Please finish the course of cefdinir that was prescribed to you. You were also prescribed doxycycline 100 mg twice daily. You have some labs pending; Babesia DNA PCR, Q fever panel, typhus fever panel, Rickettsia panel. You have an appointment set up with your primary care doctor for next week. Please repeat CBC. Pending Studies at Discharge: Yes Studies:: Babesia DNA PCR, Q fever panel, typhus fever panel, Rickettsia panel Stand-Alone Forms: My [facility], Smoking Cessation Medications and DC Order Prescriptions: New doxycycline hyclate 100 mg Capsule 100 mg PO BID 7 Days Qty: 14 0RF Continued losartan 50 mg tablet 100 mg PO DAILY dextroamphetamine-amphetamine [Adderall] 12.5 mg tablet 12.5 mg PO BID Rx Instructions: takes in the morning and at lunch time, pt has not been taking due to shortage, takes methylphenidate instead. propranolol 10 mg tablet 10 mg PO QID PRN (Reason: Anxiety) methylphenidate HCl 20 mg capsule, ER biphasic 30-70 30 mg PO DAILY Rx Instructions: pt has been taking due to shortage of adderall Discontinued indapamide 1.25 mg tablet 1.25 mg PO DAILY Discharge Orders: Discharge Order (Routine); Ordered 11/04/22 Ordered By: Héctor Toribio Admission Data Admit Date/Time: 11/03/22 01:15 Attending Provider: Héctor Toribio Admit Provider: Juan Luis Torres Primary Care Provider: Tosha Vaca Other Providers: Juan Luis Torres Other Interventions: Discharge Summary Assessment (RN) Last Done: 11/04/22 12:57
[2022-11-04 15:01] LABS: ALC (manual) 1.96 K/uL (1.2-3.4); ANC (manual) 1.15 K/uL (1.4-6.5); Basophils # (manual) 0.04 K/uL (0-0.2); Eosinophils # (manual) 0.19 K/uL (0-0.50); Lymphocytes # (manual) 1.42 K/uL (1.2-3.4); Neutrophils # (manual) 1.15 K/uL (1.40-6.50); Reactive Lymphocytes # (manual) 0.54 K/uL
[2022-11-05] MEDS ORDERED: LOSARTAN POTASSIUM 50 MG TAB PO SCH (09:00)
[2022-11-05] MEDS ORDERED: METHYLPHENIDATE HCL 20 MG PO SCH (09:00)
[2022-11-09 01:37] LABS: Babesia microti DNA Not Detected (Not Detected)
[2022-11-11 17:37] LABS: Q Fever IgG, Phase I NEGATIVE; Q Fever Phase I IgM Antibody NEGATIVE; Q Fever Phase II IgG Antibody NEGATIVE; Q Fever Phase II IgM Antibody NEGATIVE; R. typhi IgG Ab NOT DETECTED; R. typhi IgM Ab NOT DETECTED; RMSF IgG Ab NOT DETECTED; RMSF IgM Ab NOT DETECTED
--- NOTE | 2022-11-13 04:34 | Coding Query ---
CODING QUERY To promote full compliance with coding requirements relating to patient care, provider participation is requested in all cases of stockbroking dealer uncertainty. Please assist us with the question(s) below: Coding Question(s): Pt admitted with hyponatremia,fever,myalgia. Lyme serologies negative. Pt treated for UTI - urine culture negative. Please check below the phrase that describes the UTI. Thank you. 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 [facility] Physician's Response(s): Patient had a UTI, Present on Admission ____X____ Patient did not have a UTI Other/ Please document : Principal Diagnosis: "that condition established after study, to be chiefly responsible for occasioning the admission of the patient to the hospital for care." Co-Existing Principal Diagnosis: "when two or more diagnoses equally meet the criteria for principal diagnosis as determined by the circumstances of admission, diagnostic work up, and/or therapy provided, and the Alphabetic Index, Tabular List, or another coding guideline does not provide sequencing direction, any one of the diagnoses may be sequenced first." "When the physician has documented what appears to be a current diagnosis in the body of the record, but has not included the diagnosis in the final diagnostic statement, the physician should be asked whether the diagnosis should be added." (Source Coding Clinic 2 QTR90. p3-4) HERMELINDO
== END 2022-11-04 14:32 | disposition home or self-care (01) | DRG 641 ==
LOC: ED 20:53 → INTOOBSV 11-03 01:15 → 2W 11-03 01:15

== ENCOUNTER 2023-04-17 14:02 | Observation (INO) ==
[2023-04-17] MEDS ORDERED: ALBUT/IPRATROP 3MG/0.5MG NEB 3 ML VIAL NEB STA (14:28)
--- NOTE | 2023-04-17 14:35 | Emergency Department Note ---
History of Present Illness General Chief complaint: Illness Stated complaint: LOW O2 Time Seen by Provider: 04/17/23 14:15 History of Present Illness Maximum Pain Intensity: 3 42-year-old female with a 3-day history of cough cold congestion. Patient was seen yesterday and was tested for COVID RSV and flu and that was negative. Patient states that when she walked to the bathroom pulse ox went down to the low 90s. Patient states that she coughs when she takes a deep breath. Patient states that she has green sputum. Patient denies hemoptysis or pleuritic chest pain. Patient was sent in by her primary care physician for further evaluation; patient denies any swelling of her legs. Patient denies significant fever. There are no other mitigating or alleviating factors Home Medications Medication Instructions Recorded Confirmed Type dextroamphetamine-amphetamine 12.5 12.5 mg PO BID 11/03/22 04/17/23 History mg tablet (Adderall) losartan 50 mg tablet 50 mg PO BID 11/03/22 04/17/23 History propranolol 10 mg tablet 10 mg PO QID PRN Anxiety 11/03/22 04/17/23 History amlodipine 10 mg tablet 10 mg PO DAILY 04/17/23 04/17/23 History cholecalciferol (vitamin D3) 50 50 mcg PO DAILY 04/17/23 04/17/23 History mcg (2,000 unit) capsule (Vitamin D3) codeine 10 mg-guaifenesin 100 mg/5 5 ml PO Q4H PRN Cough 04/17/23 04/17/23 History mL oral liquid dihydroxyaluminum sodium carb 334 334 mg PO QAM 04/17/23 04/17/23 History mg chewable tablet fluticasone propionate 50 1 spray intranasal DAILY 04/17/23 04/17/23 History mcg/actuation nasal spray,suspension iron,carbonyl 65 mg-vitamin C 125 1 tab PO DAILY 04/17/23 04/17/23 History mg tablet,delayed release (Vitron-C) multivitamin 1 tab PO DAILY 04/17/23 04/17/23 History omega-3 fatty acids-fish oil 684 1 cap PO DAILY 04/17/23 04/17/23 History mg-1,200 mg capsule,delayed release zinc-magnesium aspart-vit B6 10 1 cap PO QAM 04/17/23 04/17/23 History mg-150 mg-3.83 mg capsule Allergies Allergy/AdvReac Type Severity Reaction Status Date / Time ciprofloxacin Allergy Verified 04/17/23 16:06 corn syrup Allergy Verified 04/17/23 16:06 soy Allergy fatigue, Verified 04/17/23 16:06 headache, nausea, vomiting wheat Allergy fatigue Verified 04/17/23 16:06 and headache corn - vegetable Allergy Intermediate fatigue, Uncoded 04/17/23 16:06 N/V, headache FLUROQUIONODE Allergy Unknown UKN Uncoded 04/17/23 16:06 Past Med/Surg History Medical History Acute hyponatremia ADD (attention deficit disorder) without hyperactivity Surgical History History of dental surgery Family History (Updated 04/17/23 @ 16:13 by Marisela Diane PA-C) Father Hypertension Mother Hypertension Grandfather (Paternal) Lung cancer Social History Smoking Status: Never smoker Hx Alcohol Use: Yes Alcohol type: beer, wine, hard liquor and other Hx Substance Use: No Preferred Language: Slovak Communication Ability: Effective Buyer Liaison Required: No Beliefs That Will Affect Care: None Current Living Situation: Spouse and Family Feels Safe at Home: Yes Assistive Devices: None Immunizations: Past medical history is COVID in 2020 Review of Systems A total of 10 systems reviewed and were otherwise negative Constitutional: + body aches Respiratory: + cough Physical Exam Vital Signs Vital Signs - 24 hr 04/17/23 14:11 04/17/23 14:56 04/17/23 14:57 Temperature 36.7 C Temperature Source Temporal Artery Scan Pulse Rate 91 H 84 Pulse Rate [Right Finger] 86 Pulse Rhythm [Right Finger] Pulse Strength [Right Finger] Respiratory Rate 18 16 12 Respiratory Effort / Characteristics Non-Labored Respiratory Depth Normal Blood Pressure 127/80 Blood Pressure [Right Arm] 120/76 Blood Pressure Mean 95 Blood Pressure Mean [Right Arm] 90 Blood Pressure Position [Right Arm] Pulse Oximetry 94 99 99 Oxygen Delivery Method Room Air Nebulizer Room Air Sepsis Recent Fever Within 48 Hours No Sepsis New/Unexplained Change in Mental Status No Sepsis Action Taken by Nursing No Action Required 04/17/23 15:26 Temperature 36.8 C Temperature Source Oral Pulse Rate Pulse Rate [Right Finger] 86 Pulse Rhythm [Right Finger] Regular Pulse Strength [Right Finger] Normal Respiratory Rate 16 Respiratory Effort / Characteristics Non-Labored Spontaneous Respiratory Depth Normal Blood Pressure Blood Pressure [Right Arm] 132/77 Blood Pressure Mean Blood Pressure Mean [Right Arm] 95 Blood Pressure Position [Right Arm] Lying Pulse Oximetry 97 Oxygen Delivery Method Room Air Sepsis Recent Fever Within 48 Hours Sepsis New/Unexplained Change in Mental Status Sepsis Action Taken by Nursing GENERAL: Patient is awake alert in no acute distress patient is resting comfortably and showing no signs of anxiety EYES: The conjunctivae are clear. The pupils are round and reactive. EARS, NOSE, MOUTH AND THROAT: The nose is without any evidence of any deformity. Mucous membranes are moist. Tongue is midline. NECK: The neck is nontender and supple. RESPIRATORY: Normal respiratory effort is noted there is no evidence of wheezing rhonchi or rales CARDIOVASCULAR: Regular rate and rhythm noted there no murmurs rubs or gallops normal S1 normal S2. GASTROINTESTINAL: The abdomen is soft. Abdomen is nontender. BACK: No midline tenderness or or step-off noted range of motion in flexion extension as well as rotation no signs of muscle spasm noted MUSCULOSKELETAL/EXTREMITIES: There is no evidence of gross deformity full range of motion is noted in the hips and shoulders. SKIN: There is no obvious evidence of any rash. There are no petechiae, pallor or cyanosis noted. NEUROLOGIC: Patient is awake alert and oriented x3 strength is symmetric Course Reevaluation(s) Reevaluation #1: Patient is resting in no distress was started on a DuoNeb, was given IV Rocephin, IV Zithromax. Time: 16:11 Consultations Consultation #1: Case was discussed with the [facility] Hospitalist for admission Time: 16:11 Administered Medications Discontinued Medications Albuterol (Albut/Ipratrop 3mg/0.5mg Neb 3 Ml Vial) 3 ml NEB NOW STA; Protocol Stop: 04/17/23 14:29 Last Admin: 04/17/23 14:56 Dose: 3 ml Documented By: WILIAM Medical Decision Making Medical Records Attestation: I reviewed the patient's medical records. Home Medications Current Medication List: was personally reviewed by me Laboratory Data Attestation: I reviewed the patient's lab results. Lab work interpreted by me patient has a mild hyponatremia Bio fire interpreted by mi is positive for mycoplasma pneumonia 04/17/23 14:44 04/17/23 14:44 Lab Results 04/17/23 04/17/23 Range/Units 14:44 14:50 WBC 6.12 (4.8-10.8) K/ul RBC 4.28 (4.20-5.40) M/uL Hgb 11.1 L (12.0-16.0) g/dl Hct 33.0 L (37.0-47.0) % MCV 77.1 L (80.0-100.0) fL MCH 25.9 (25.0-34.0) pg MCHC 33.6 (32.0-36.0) g/dL RDW Std Deviation 50.4 H (36.4-46.3) fL RDW Coeff of [place] 17.8 H (11.5-14.5) % Plt Count 172 (130-400) K/uL MPV 10.8 (9.4-12.4) fL Immature Gran % (Auto) 0.7 % Neut % (Auto) 76.9 % Lymph % (Auto) 10.1 % [place] % (Auto) 11.6 % Eos % (Auto) 0.2 % Baso % (Auto) 0.5 % Neut # (Auto) 4.71 (1.40-6.50) K/uL Lymph # (Auto) 0.62 L (1.20-3.40) K/uL [place] # (Auto) 0.71 H (0.11-0.59) K/uL Eos # (Auto) 0.01 (0.00-0.50) K/uL Baso # (Auto) 0.03 (0.00-0.20) K/uL Immature Gran # (Auto) 0.04 (0.01-0.20) K/uL Sodium 128 L (136-145) mmol/L Potassium 3.3 L (3.5-5.1) mmol/L Chloride 96 L (98-107) mmol/L Carbon Dioxide 24 (21-32) mmol/L Anion Gap 8 (3-11) BUN 12 (6-23) mg/dl Creatinine 0.88 (0.6-1.2) mg/dl Est Cr Clr Drug Dosing 87.8 ml/min Est GFR ( Amer) 93.9 ml/min Est GFR (Non-Af Amer) 81.0 ml/min BUN/Creatinine Ratio 13.6 (10-20) Glucose 115 H (70-99(Fasting)) mg/dl Calcium 8.7 (8.6-10.3) mg/dl Total Bilirubin 0.4 (0.2-1.0) mg/dl AST 48 H (13-39) U/L ALT 53 H (7-52) U/L Alkaline Phosphatase 67 (34-104) U/L Total Protein 6.7 (6.0-8.3) gm/dl Albumin 3.6 (3.4-5.0) gm/dl Globulin 3.1 (2.5-4.0) gm/dl Albumin/Globulin Ratio 1.2 (0.9-2) Urine Color [place] Urine Appearance Clear (Clear) Urine pH 6.0 (4.5-7.5) Ur Specific [place] 1.006 (1.000-1.030) Urine Protein Trace H (Negative) Urine Glucose (UA) Negative (Negative) Urine Ketones Negative (Negative) Urine Blood 3+ H (Negative) Urine Nitrite Negative (Negative) Urine Bilirubin Negative (Negative) Urine Urobilinogen Negative (Negative) Ur Leukocyte Esterase Trace H (Negative) Urine WBC (Auto) 1-5 (0-5) /hpf Urine RBC (Auto) >30 H (0-4) /hpf U Hyaline Cast (Auto) 1-5 (0-5) /lpf U Epithel Cells (Auto) 20-30 H (0-5) /lpf Urine Bacteria (Auto) Negative (Negative) Imaging Data Attestation: I personally reviewed and interpreted this imaging study as follows: My Impression: Chest x-ray interpreted by me left lower lobe infiltrate Radiologist's Impression: Chest X-Ray 04/17/23 14:29 XR chest 1V portable CLINICAL HISTORY: Dyspnea TECHNIQUE: Single frontal radiograph of the chest was obtained. Comparison: Comparison is made to chest radiograph 11/03/2022 FINDINGS: No lines and tubes are seen. The cardiomediastinal silhouette is normal. Left lower lung airspace [place]acity is seen. No evidence of pleural effusion or pneumothorax. IMPRESSION: Left lower lung airspace opacities compatible with aspiration/pneumonia. ACT 112: Negative or not required by law. Electronically signed by: Beni Peter M.D. 04/17/2023 3:26 PM ECG Data Attestation: I personally reviewed and interpreted this ECG as follows: Additional Comments: EKG interpreted by me normal sinus rhythm rate of 82, nonspecific T abnormality, no obvious ST segment elevation or depression, normal intervals, normal axis Telemetry was ordered by me, interpreted as normal sinus rhythm rate of 82 MDM Narrative Medical decision making differential diagnosis includes upper respiratory tract infection, pneumonia, bronchitis, viral syndrome, anemia Plan is to check labs, chest x-ray, give breathing treatment, bio fire swab Patient's at bedside provide me history of the patient's symptoms for the past 3 days of cough cold congestion or low pulse ox. Patient was started on IV Rocephin and Zithromax for a left lower lobe consolidation. Patient is not in septic shock at the time of admission. The case was discussed with the [facility] hospitalist for admission for left lower lobe pneumonia Impression & Plan Pneumonia Discharge Plan Visit Data Chief Complaint: Illness Stated Complaint: LOW O2 ED Provider: Yobany Kaye Discharge Problem: Pneumonia Patient Disposition: Admitted As Inpatient Forms Stand Alone Forms: My [facility] Prescriptions Prescriptions: No Action losartan 50 mg tablet 50 mg PO BID dextroamphetamine-amphetamine [Adderall] 12.5 mg tablet 12.5 mg PO BID Rx Instructions: takes in the morning and at lunch time, pt has not been taking due to shortage, takes methylphenidate instead. propranolol 10 mg tablet 10 mg PO QID PRN (Reason: Anxiety) amlodipine 10 mg tablet 10 mg PO DAILY multivitamin Tablet 1 tab PO DAILY fluticasone propionate 50 mcg/actuation [place],Suspension 1 spray INTRANASAL DAILY Rx Instructions: administer into each nostril [place] 3 Fish Oil 684-1,200 mg Capsule,Delayed Release(Dr/Ec) 1 cap PO DAILY cholecalciferol (vitamin D3) [Vitamin D3] 50 mcg (2,000 unit) Capsule 50 mcg PO DAILY Vitron-C 65 mg iron- 125 mg Tablet,Delayed Release (Dr/Ec) 1 tab PO DAILY Antacid 334 mg Tablet,Chewable 334 mg PO QAM zinc-magnesium aspart-vit B6 10-150-3.83 mg Capsule 1 cap PO QAM codeine-guaifenesin 10-100 mg/5 mL liquid 5 ml PO Q4H PRN (Reason: Cough) Referrals Referrals: Tosha Vaca MD [Primary Care Provider] -
[2023-04-17 15:07] LABS: Basophils # (auto) 0.03 K/uL (0.00-0.20); Basophils % (auto) 0.5 %; Eosinophils # (auto) 0.01 K/uL (0.00-0.50); Eosinophils % (auto) 0.2 %; Hemoglobin 11.1 g/dl (12.0-16.0); Immature Granulocytes # (auto) 0.04 K/uL (0.01-0.20); Immature Granulocytes % (auto) 0.7 %; Lymphocytes # (auto) 0.62 K/uL (1.20-3.40); Lymphocytes % (auto) 10.1 %; Mean Corpuscular Hemoglobin 25.9 pg (25.0-34.0); Mean Corpuscular Hgb Conc 33.6 g/dL (32.0-36.0); Mean Corpuscular Volume 77.1 fL (80.0-100.0); Mean Platelet Volume 10.8 fL (9.4-12.4); Monocytes # (auto) 0.71 K/uL (0.11-0.59); Monocytes % (auto) 11.6 %; Neutrophils # (auto) 4.71 K/uL (1.40-6.50); Neutrophils % (auto) 76.9 %; Platelet Count 172 K/uL (130-400); RDW Coefficient of Variation 17.8 % (11.5-14.5); RDW Standard Deviation 50.4 fL (36.4-46.3); Red Blood Count 4.28 M/uL (4.20-5.40); White Blood Count 6.12 K/ul (4.8-10.8)
[2023-04-17 15:23] LABS: Albumin Globulin Ratio 1.2 (0.9-2); Albumin Level 3.6 gm/dl (3.4-5.0); BUN Creatinine Ratio 13.6 (10-20); Bilirubin,Total 0.4 mg/dl (0.2-1.0); Calcium 8.7 mg/dl (8.6-10.3); Creatinine Clr Calc Pharmacy 87.8 ml/min; Est GFR (African American) 93.9 ml/min; Globulin 3.1 gm/dl (2.5-4.0); Potassium 3.3 mmol/L (3.5-5.1); Total Protein 6.7 gm/dl (6.0-8.3)
--- NOTE | 2023-04-17 15:27 | XRay Report ---
XR chest 1V portable CLINICAL HISTORY: Dyspnea TECHNIQUE: Single frontal radiograph of the chest was obtained. Comparison: Comparison is made to chest radiograph 11/03/2022 FINDINGS: No lines and tubes are seen. The cardiomediastinal silhouette is normal. Left lower lung airspace [place]a city is seen. No evidence of pleural effusion or pneumothorax. IMPRESSION: Left lower lung airspace opacities compatible with aspiration/pneumonia. ACT 112: Negative or not required by law. Electronically signed by: Beni Peter M.D. 04/17/2023 3:26 PM
[2023-04-17 15:34] LABS: Appearance Urine Clear (Clear); Bacteria Urine Automated Negative (Negative); Bilirubin Urine Negative (Negative); Blood Urine 3+ (Negative); Color Urine Orange; Epithelial Cell Urine Auto 20-30 /lpf (0-5); Glucose Urine UA Negative (Negative); Ketones Urine Negative (Negative); Leukocyte Esterase Urine Trace (Negative); Nitrite Urine Negative (Negative); Protein Urine Trace (Negative); RBC Urine Automated >30 /hpf (0-4); Specific Gravity Urine 1.006 (1.000-1.030); Urobilinogen Urine Negative (Negative)
[2023-04-17] MEDS ORDERED: AZITHROMYCIN 500 MG in DEXTROSE 5% 250 ML IV ONE (15:42)
[2023-04-17] MEDS ORDERED: cefTRIAXone SODIUM 2,000 MG/50 ML BAG IV STA (15:42)
[2023-04-17 15:51] LABS: Adenovirus PCR Not Detected (NotDetected); Bordetella parapertussis PCR Not Detected (NotDetected); Bordetella pertussis PCR Not Detected (NotDetected); Chlamydia pneumoniae PCR Not Detected (NotDetected); Coronavirus 229E PCR Not Detected (NotDetected); Coronavirus CoV-2 (COVID19)PCR Not Detected (NotDetected); Coronavirus HKU1 PCR Not Detected (NotDetected); Coronavirus NL63 PCR Not Detected (NotDetected); Coronavirus OC43PCR Not Detected (NotDetected); Human Metapneumovirus PCR Not Detected (NotDetected); Influenza A PCR Not Detected (NotDetected); Influenza B PCR Not Detected (NotDetected); Parainfluenza Virus 1 PCR Not Detected (NotDetected); Parainfluenza Virus 2 PCR Not Detected (NotDetected); Parainfluenza Virus 3 PCR Not Detected (NotDetected); Parainfluenza Virus 4 PCR Not Detected (NotDetected); Respiratory Syncytial VirusPCR Not Detected (NotDetected); Rhinovirus/Enterovirus PCR Not Detected (NotDetected)
[2023-04-17 16:01] LABS: Mycoplasma pneumoniae PCR DETECTED (NotDetected)
[2023-04-17] MEDS ORDERED: SODIUM CHLORIDE 0.9% 1,000 ML IV SCH (16:15)
--- NOTE | 2023-04-17 16:17 | History & Physical Report ---
Date of Service April 17, 2023 Assessment & Plan (1) Mycoplasma pneumonia: (2) Acute hyponatremia: (3) Essential hypertension with goal blood pressure less than 140/90: (4) IgA nephropathy: Plan This is a 42-year-old female who has significant past medical history of HTN, Raynaud's disease, flushing, IgA nephropathy and ADHD who presents to ED secondary to cough times few days. Her outpatient records were reviewed. Mycoplasma Pneumonia received IV Azithromycin 500mg in ED as well as 2gIV ceftriaxone will continue IV azithromycin 500mg for additional two days, or while hospitalized supportive care with nebs, anti tussives, prn analgesia supplemental o2 if needed, but right now O2 saturations are adequate cbc, cmp, mag ordered in a.m. Acute hyponatremia Acute hypokalemia likely 2/2 poor intake will replete potassium obtain serum osm, urine na, urine osm IV nss + 20meq KCL x 1 L, she is receiving additional L of IV NSS in ED repeat bmp in a.m. Elevated LFTS AST 48, ALT 53 no abd pain repeat in a.m., consider OP US HTN hold amlodipine and losartan for now due to lack of intake and bp currently adequate resume as able IGA nephropathy follows donger nephro protein/blood noted in urine ADHD only takes adderal while working hld for now DVT ppx: SQ Lovenox, encourage ambulation Dispo: med/surg, likely d/c tomorrow if electrolytes improved FULL CODE PCP: Lio Pt was seen and examined in collaboration with Dr. Davenport, please see addendum A total of 70 was spent coordinating, documenting, and providing care for this patient excluding time spent in the performance of separately billed services. This included personally viewing all current laboratories and imaging studies, medication reconciliation, outpatient chart review, and discussion with specialists. History of Present Illness Chief Complaint: Cough x few days. Primary Care Provider: Tosha Vaca MD This is a 42-year-old female who has significant past medical history of HTN, Raynaud's disease, flushing, IgA nephropathy and ADHD who presents to ED secondary to cough times few days. Her outpatient records were reviewed. She was seen and evaluated in clinic yesterday secondary to fevers a couple days ago 10 3-1 04, productive cough with purulent sputum, coughing makes it hard to breathe and rhinorrhea. Per outpatient notes she did try Tylenol, Mucinex and dextromethorphan. Outpatient COVID, influenza and RSV test were negative. Positive sick contacts with older child. In clinic today patient's oxygen saturations went as low as 93%. In ED patient had notable lab abnormalities including an H&H 11.1 and 33.0, sodium 128, K3.3, chloride 96, AST 40, ALT 53 and urinalysis with trace protein, +3 blood and leukocyte esterase but negative bacteria. Chest x-ray revealed left lower lung airspace opacity compatible with pneumonia. is at bedside who helps elicit history. Sx started 4-5 days ago with fevers, chills, sweats, cough, nausea and poor appetite. She felt lightheaded today and a, "wall caught her." thinks its from not eating/drinking. She denies vomiting, diarrhea, melena, or hematochezia. She does have blood in urine due to known IGA nephropathy. Allergies Allergy/AdvReac Type Severity Reaction Status Date / Time ciprofloxacin Allergy Verified 04/17/23 16:06 corn Allergy Verified 04/18/23 11:43 corn syrup Allergy Verified 04/17/23 16:06 soy Allergy fatigue, Verified 04/17/23 16:06 headache, nausea, vomiting wheat Allergy fatigue Verified 04/17/23 16:06 and headache corn - vegetable Allergy Intermediate fatigue, Uncoded 04/17/23 16:06 N/V, headache FLUROQUIONODE Allergy Unknown UKN Uncoded 04/17/23 16:06 Home Medications Medication Instructions Recorded Confirmed Type dextroamphetamine-amphetamine 12.5 12.5 mg PO BID 11/03/22 04/17/23 History mg tablet (Adderall) losartan 50 mg tablet 50 mg PO BID 11/03/22 04/17/23 History propranolol 10 mg tablet 10 mg PO QID PRN Anxiety 11/03/22 04/17/23 History amlodipine 10 mg tablet 10 mg PO DAILY 04/17/23 04/17/23 History cholecalciferol (vitamin D3) 50 50 mcg PO DAILY 04/17/23 04/17/23 History mcg (2,000 unit) capsule (Vitamin D3) codeine 10 mg-guaifenesin 100 mg/5 5 ml PO Q4H PRN Cough 04/17/23 04/17/23 History mL oral liquid dihydroxyaluminum sodium carb 334 334 mg PO QAM 04/17/23 04/17/23 History mg chewable tablet fluticasone propionate 50 1 spray intranasal DAILY 04/17/23 04/17/23 History mcg/actuation nasal spray,suspension iron,carbonyl 65 mg-vitamin C 125 1 tab PO DAILY 04/17/23 04/17/23 History mg tablet,delayed release (Vitron-C) multivitamin 1 tab PO DAILY 04/17/23 04/17/23 History omega-3 fatty acids-fish oil 684 1 cap PO DAILY 04/17/23 04/17/23 History mg-1,200 mg capsule,delayed release zinc-magnesium aspart-vit B6 10 1 cap PO QAM 04/17/23 04/17/23 History mg-150 mg-3.83 mg capsule azithromycin 250 mg tablet 250 mg PO DAILY 4 days #4 tabs 04/18/23 Rx guaifenesin 600 mg tablet, 600 mg PO BID 7 days #14 tabs 04/18/23 Rx extended release 12 hr Past Med/Surg History Medical History (Updated 04/17/23 @ 16:54 by Marisela Diane PA-C) IgA nephropathy Acute hyponatremia ADD (attention deficit disorder) without hyperactivity Surgical History (Updated 04/17/23 @ 16:14 by Marisela Diane PA-C) Hx of biopsy Kidney for IGA nephropathy History of dental surgery Family History Father Hypertension Mother Hypertension Grandfather (Paternal) Lung cancer Social History Smoking Status: Never smoker Hx Alcohol Use: Yes Alcohol type: beer, wine and hard liquor Hx Substance Use: No Preferred Language: [place] Communication Ability: Effective Internet Marketer Required: No Beliefs That Will Affect Care: None Current Living Situation: Spouse Current Living Situation Comment: and 2 kids Other Information That Helps Us Care for You: No Feels Safe at Home: Yes Safety Concerns: Feels Safe At This Time Assistive Devices: None Review of Systems Review of Systems: All systems reviewed & are unremarkable except as noted in HPI & below Physical Exam Physical Exam: Constitutional: WD/WN, vitals as above, NAD but appears ill, coughing a lot during exam, sitting up in bed, pleasant, conversing easily Head: Normocephalic, Atraumatic Eyes: PERRL, conjunctivae normal, anicteric sclerae ENMT: external ear and nose normal, oropharynx normal Neck: trachea midline, no thyromegaly normal visual inspection Respiratory: normal respiratory effort, lungs clear to auscultation, no wheeze, rales, rhonchi. Normal insp/exp effort, no accessory muscle use Cardiovascular: RRR, no murmur, no edema Vessels: no JVD or carotid bruit Chest: normal inspection of chest Abdomen: normal bowel sounds, soft, nontender, no hepatosplenomegaly Musculoskeletal: no cyanosis or clubbing, extremities motor strength 5/5 Skin: no rashes, warm and dry normal turgor Neurologic: PERRL, EOMI, accommodation nl, no face palsy, no dysarthria CN's II-XI intact bilaterally and moves all extremities Psychiatric: A+Ox3, euthymic affect Lymphatic: no cervical or axillary lymphadenopathy : deferred Results & Data Results & Data Vital Signs (Past 12 Hours) Vital Signs Temp Pulse Pulse Resp BP BP Pulse Ox 04/17/23 15:26 36.8 C 86 16 132/77 97 04/17/23 14:57 86 12 120/76 99 04/17/23 14:56 84 16 99 04/17/23 14:11 36.7 C 91 H 18 127/80 94 O2 Del Method 04/17/23 15:26 Room Air 04/17/23 14:57 Room Air 04/17/23 14:56 Nebulizer 04/17/23 14:11 Room Air Laboratory Results I have independently reviewed and interpreted patient's admitting labs including CBC, CMP, UA, respiratory biofire. Diagnostic Findings Chest X-Ray 04/17/23 14:29 XR chest 1V portable CLINICAL HISTORY: Dyspnea TECHNIQUE: Single frontal radiograph of the chest was obtained. Comparison: Comparison is made to chest radiograph 11/03/2022 FINDINGS: No lines and tubes are seen. The cardiomediastinal silhouette is normal. Left lower lung airspace [place]acity is seen. No evidence of pleural effusion or pneumothorax. IMPRESSION: Left lower lung airspace opacities compatible with aspiration/pneumonia. ACT 112: Negative or not required by law. Electronically signed by: Beni Peter M.D. 04/17/2023 3:26 PM Medications Administered Medication List Discontinued Medications Albuterol (Albut/Ipratrop 3mg/0.5mg Neb 3 Ml Vial) 3 ml NEB NOW STA; Protocol Stop: 04/17/23 14:29 Last Admin: 04/17/23 14:56 Dose: 3 ml Documented By: NRB ECG Additional Comments: I have independently reviewed and interpreted patient's admitting EKG which revealed: 82, NSR, t wave inversion v1-v4 unchanged from 11/02/22. COVID-19 Results Results COVID-19 Adm Lab Results: RBC 3.91 M/uL (4.20-5.40) L 04/18/23 WBC 4.82 K/ul (4.8-10.8) 04/18/23 Hgb 10.2 g/dl (12.0-16.0) L 04/18/23 Hct 29.9 % (37.0-47.0) L 04/18/23 Plt Count 152 K/uL (130-400) 04/18/23 Neutrophils (%) (Auto) 68.6 % 04/18/23 Lymphocytes (%) (Auto) 17.0 % 04/18/23 Monocytes # (Auto) 0.60 K/uL (0.11-0.59) H 04/18/23 Eosinophils # (Auto) 0.04 K/uL (0.00-0.50) 04/18/23 Immature Granulocyte % (Auto) 0.6 % 04/18/23 Neutrophils # (Auto) 3.30 K/uL (1.40-6.50) 04/18/23 Lymphocytes # (Auto) 0.82 K/uL (1.20-3.40) L 04/18/23 Monocytes # (Auto) 0.60 K/uL (0.11-0.59) H 04/18/23 Eosinophils # (Auto) 0.04 K/uL (0.00-0.50) 04/18/23 Basophils # (Auto) 0.03 K/uL (0.00-0.20) 04/18/23 Immature Granulocyte # (Auto) 0.03 K/uL (0.01-0.20) 3 Na 135 mmol/L (136-145) L 04/18/23 K 3.7 mmol/L (3.5-5.1) 04/18/23 Cl 105 mmol/L (98-107) 04/18/23 CO2 26 mmol/L (21-32) 04/18/23 Anion Gap 4 (3-11) 04/18/23 BUN 8 mg/dl (6-23) 04/18/23 Creatinine 0.73 mg/dl (0.6-1.2) 04/18/23 BUN/Creatinine Ratio 11.0 (10-20) 04/18/23 Glucose Level 99 mg/dl (70-99(Fasting)) 04/18/23 Ca 8.4 mg/dl (8.6-10.3) L 04/18/23 Phosphorus Level 3.0 mg/dl (2.5-4.9) 04/18/23 Total Bilirubin 0.4 mg/dl (0.2-1.0) 04/18/23 AST/SGOT 90 U/L (13-39) H 04/18/23 ALT/SGPT 94 U/L (7-52) H 04/18/23 Alkaline Phosphatase 59 U/L (34-104) 04/18/23 Total Protein 5.7 gm/dl (6.0-8.3) L 04/18/23 Albumin 3.1 gm/dl (3.4-5.0) L 04/18/23 Globulin 2.6 gm/dl (2.5-4.0) 04/18/23 Albumin/Globulin Ratio 1.2 (0.9-2) 04/18/23 Adenovirus (PCR) Not Detected (NotDetected) 04/17/23 B. parapertussis DNA (PCR) Not Detected (NotDetected) 03/30 01/20 B. pertussis DNA (PCR) Not Detected (NotDetected) 04/17/23 C. pneumoniae DNA (PCR) Not Detected (NotDetected) 3 Coronavirus Type OC43 (PCR) Not Detected (NotDetected) Coronavirus Type HKU1 (PCR) Not Detected (NotDetected) Coronavirus Type 229E (PCR) Not Detected (NotDetected) COVID-19 PCR Not Detected (NotDetected) 04/17/23 Coronavirus Type NL63 (PCR) Not Detected (NotDetected) Human Metapneumovirus (PCR) Not Detected (NotDetected) Influenza Virus Type A (PCR) Not Detected (NotDetected) Influenza Virus Type B (PCR) Not Detected (NotDetected) M. pneumoniae (PCR) DETECTED (NotDetected) A* 04/17/23 Parainfluenza Type 1 (PCR) Not Detected (NotDetected) 03/30 01/20 Parainfluenza Type 2 (PCR) Not Detected (NotDetected) 03/30 01/20 Parainfluenza Type 3 (PCR) Not Detected (NotDetected) 03/30 01/20 Parainfluenza Type 4 (PCR) Not Detected (NotDetected) 03/30 01/20 RSV (PCR) Not Detected (NotDetected) 04/17/23 Enterovirus/Rhinovirus (PCR) Not Detected (NotDetected) Micro Respiratory Specimen 04/18/23 Chest X-Ray 04/17/23 Code Status & VTE Plan Code Status FULL CODE VTE Prophylaxis Plan VTE Prophylaxis will be ordered: Yes Supervising Physician Co-Signing Physician Notes Pt was seen and examined. Agreed with Marisela FAGAN exam, assessment and plan. 42-year-old female who has significant past medical history of HTN, Raynaud's disease, flushing, IgA nephropathy and ADHD who presents to ED for worsening cough. She was seen in the clinic yesterday and she was tested negative COVID, influenza and RSV. She continues to have a productive cough. Today at the clinic her oxygen sat drop in the 93%. She came to the ER. Chest x-ray revealed left lower lung airspace opacity compatible with pneumonia. Biofire tested positive for mycoplasma pneumonia. Received IV Azithromycin 500mg in ED as well as 2gIV ceftriaxone, will continue IV abx with azithromycin. blood cx collected in the ER, will check sputum cx. Continue monitor oxygen sat closely. MD Issac (1) Mycoplasma pneumonia Laterality: left Lung location: lower lobe of lung Qualified Code(s): J15.7 - Pneumonia due to Mycoplasma pneumoniae
[2023-04-17] MEDS ORDERED: DEXTROMETHORPHAN POLYMR COMPLX 60 MG/10 ML UDP PO STA (16:40)
[2023-04-17] MEDS ORDERED: ACETAMINOPHEN 325 MG TAB PO STA (19:20)
[2023-04-17] MEDS: POTASSIUM CHLORIDE / WTR 10 MEQ/100 ML PLCT IV SCH ×2 (19:37→21:35)
[2023-04-17] MEDS ORDERED: ONDANSETRON INJ 2 MG/ML 2 ML VIAL IV PRN (20:39)
[2023-04-17] MEDS ORDERED: POLYETHYLENE (MIRALAX) 17 GM PACK PO PRN (20:39)
[2023-04-17] MEDS ORDERED: MAGNESIUM HYDROXIDE SUSP 30 ML UDC PO PRN (20:39)
[2023-04-17] MEDS ORDERED: ALBUTEROL 0.083% NEBU SOLN 3 ML VIAL NEB PRN (20:39)
[2023-04-17] MEDS ORDERED: ALUMINUM/MAGNESIUM SUSP 30 ML UDC PO PRN (20:39)
[2023-04-17] MEDS ORDERED: guaiFENesin 600 MG TABCR PO PRN (20:39)
[2023-04-17] MEDS ORDERED: NSS + 20MEQ KCL 20 MEQ/1,000 ML BAG IV SCH (20:45)
[2023-04-17] MEDS ORDERED: guaiFENesin/CODEINE 100MG/10MG 5ML UDC PO PRN (21:00)
[2023-04-17] MEDS ORDERED: ENOXAPARIN INJ 40 MG/0.4 ML SYR SQ SCH (21:00)
--- OUTSIDE RECORDS SUMMARY | 2023-04-17 21:26 | External Medical Summary | Summary of Care ---
Author Name Unknown Organization [facility] Address [address] [place] [address] Phone [phone] Care Team Providers Care Thread Winder Name Role Phone Tosha Vaca MD Primary Care Provider Encounter Details Date Type Department Care Team Description 01/05/2023 Orders Only Nephrology, [address] [address] Tay Guerra MD [address] [place] [id number] Allergies Active Allergy Reactions Severity Noted Date Comments Ciprofloxacin 10/11/2011 [place] Syrup 04/11/2013 Soy Allergy Nausea/vomiting 09/10/2013 Fatigue, Headache Wheat 09/10/2013 Headache, Fatigue documented as of this encounter (statuses as of 01/05/2023) Medications Medication Sig Dispensed Refills Start Date End Date Status Multi Vitamin Daily Oral Tablet Take by mouth . 0 Active Iron-Vitamin C 65-125 MG Oral Tablet Take 1 Tablet by mouth in the morning. 0 Active [place]-3 1000 MG Oral Capsule Take by mouth . 0 Active Vitamin D (Cholecalciferol) 50 MCG (2000 UT) Oral Capsule Take by mouth . 0 Active Losartan Potassium 50 MG Oral Tablet (Cozaar) TAKE 2 TABLETS BY MOUTH EVERY MORNING 60 Tablet 11 07/11/2022 Active Fluticasone Propionate 50 MCG/ACT Nasal Suspension Administer 1 [place] into nostril in the morning. 0 Active Propranolol HCl 10 MG Oral Tablet (Inderal)Indications :Flushing Take 1 Tablet by mouth 4 times a day as needed for Anxiety or Other (flushing). 30 Tablet 5 09/17/2022 Active Methylphenidate HCl ER (CD) 30 MG Oral Capsule Extended ReleaseIndications:A ttention deficit disorder (ADD) without hyperactivity Take 1 Capsule by mouth in the morning. 30 Capsule 0 10/23/2022 Active Indapamide 1.25 MG Oral Tablet TAKE 1 TABLET BY MOUTH EVERY MORNING 30 Tablet 3 10/27/2022 Active Amphetamine-Dextroam phetamine 12.5 MG Oral Tablet (Adderall)Indication s:Attention deficit disorder (ADD) without hyperactivity Take 1 Tablet by mouth in the morning and 1 Tablet before bedtime. 60 Tablet 0 12/11/2022 Active amLODIPine Besylate 10 MG Oral Tablet (Norvasc) Take 0.5 Tablets by mouth in the morning. 30 Tablet 3 01/05/2023 Active documented as of this encounter (statuses as of 01/05/2023) Active Problems Problem Noted Date Raynaud's disease without gangrene 09/06 Flushing 09/06/2022 Left wrist pain 09/06/2020 Attention deficit disorder (ADD) without hyperactivity 06/23/2017 Essential hypertension with goal blood p ressure less than 140/90 01/21/2016 Allergic rhinitis due to pollen 08/11/19 16 Food allergy 08/11/2015 documented as of this encounter (statuses as of 01/05/2023) Resolved Problems Problem Noted Date Resolved Date Well adult exam 01/10/2018 09/15/2019 ADD (attention deficit disorder) 08/11/2015 06/23/2017 Gestational diabetes 09/10/2013 10/27/2013 Overview: Hgb A1c was normal. All BS testings were normal. Pt is not GDM. Need for rubella vaccination 04/21/201305/2013 Overview: Rubella equivocal at NOB visit. Vaccinate . Encounter for supervision of other normal pregna ncy 04/11/2013 11/29/2013 Overview: Reports bleeding following of son. Did not require blood transfusion ICD-10 update of inactive term Allergic 04/11/2013 11/29/2013 Overview: Allergy to corn. Will not be able to drink Glucola d/t being made with corn syrup. Discussed checking blood sugars NO KNOWN PROBLEMS 04/18/2012 09/15/2019 documented as of this encounter (statuses as of 01/05/2023) Immunizations Name Administration Dates Next Due PPD 08/15/2021 Rubella Vaccine 11/30/2013 Seasonal Influenza, PF, 6 mo ns & Above, IM , (Flulaval) 01/10/2020,03/22/2019,01/09/2018, 0 18 Seasonal Influenza, Quadriva lent, No Preserve, IM 04/13/2016 Seasonal Influenza, Split, I IV3, With Preserve, Inj 02/13/2014 TDAP (age 10 and older)(Boostrix) 09/10/2013 documented as of this encounter Social History Tobacco Use Types Packs/Day Years Used Date Smoking Tobacco: Former Cigarettes Q uit: 09/10/2002 Smokeless Tobacco: Never Alcohol Use Standard Drinks/Week Comments Yes 3 (1 standard drink = 0.6 oz pur e alcohol) Food Insecurity Answer Date Recorded Within the past 12 months, y ou worried that your food would run out before you got money to buy more. Never true 07/21/2020 Within the past 12 months, t he food you bought just didn't last and you didn't have money to get more. Never true 07/21/2020 Sex Assigned at Date Recorded Not on file Job Start Date Occupation Industry Not on file Not on file Not on file documented as of this encounter Plan of Treatment Upcoming Encounters Date Type Specialty Care Team Description 03/09/2023 Office Visit Family Medicine Tosha Vaca MD [address] [place] [address] 05/22/2023 Office Visit Nephrology Tay Guerra MD [address] [place] [address] Health Maintenance Due Date Last Done Comments Hepatitis B (1 of 3 - 3-dose series) 1980 HIV Screening 07/08/1995 Hepatitis C Screening 1998 HPV/Co-Test 2010 COVID-19 Vaccine (3 - Pfizer series) 09/13/2020 07/19/2020, 06/28/2020 Depression Screening 07/21/2021 07/21/2020 Cervical Cancer Screening 06/11/2022 Pap Smear 06/11/2022 06/11/2019, 08/28, 09/15/2016, Additional history exists Influenza Vaccine (FLU shot) (#1) 2022 01/10/2020, 03/22/2019, 03/22/2019, Additional history exists Mammogram 08/02/2023 08/01/2022, 06/29, 09/29/2016 DTaP,Tdap,and Td Vaccines (2 - Td or Tdap) 09/11/2023 09/10/2013 GFR 11/11/2023 11/10/2022, 07/0 09/2022, 08/01/2022, Additional history exists Albumin/Creatinine Ratio 04/12/2024 04/12/2021 Diabetes Screening 11/10/2025 11/10/2022, 0 11/10/2022, 11/02/2022, Additional history exists Lipid Panel 08/02/2027 08/01/2022, 01/22/2016 GARDASIL-HPV IMMUNIZATION SERIES Aged Out No longer eligible based on patient's age to complete this topic MENINGOCOCCAL (MENACTRA/MENVEO) Aged Out No longer eligible based on patient's age to complete this topic Pneumococcal Vaccine: Pediatrics (0 to 5 Years) and At-Risk Patients (6 to 64 Years) Aged Out No longer eligible based on patient's age to complete this topic documented as of this encounter Medical Devices Not on filedocumented as of this encounter Care Teams Thread Winder Relationship Specialty Start Date End Date Tosha Vaca MD [address] [place] [id number] PCP - General Internal Medicine 09/06/22 documented as of this encounter
--- OUTSIDE RECORDS SUMMARY | 2023-04-17 21:26 | External Medical Summary | Summary of Care ---
Author Name Unknown Organization [facility] Address [address] [place] [address] Phone [phone] Care Team Providers Care Accreditation Manager Name Role Phone Tosha Vaca MD Primary Care Provider Reason for Referral * Evaluate & Treat - Unlimited Visits (Within 10 days (routine)) - Pending Review Specialty Diagnoses / Procedures Referred By Contgeorgette t Referred To Contact Medical Genetics / Hematology Oncology Diagnoses Essential hypertension with goal blood pressure less than 140/90 Hematuria, microscopic Tya Guerra MD [address] [place] [id number] Referral ID Status Reason Start Date Expiration Date Visits Requested Visits Authorized [id number] Pending Review Specialty Services Required 3 [phone] Question Answer Referral Priority Within 10 days (routine) Where should this appointment be scheduled? [facility] Is this referral request related to one of the following genetics sub-specialties? If unsure of category, use Medical Genetics Ask-A-Doc. Medical Genetics Is this referral due to a family history of disease? No Is this referral due to concern for a connective tissue disorder? No Comments young lady has history of ,on and off microscopic hematuria. Immunology screen has been negative. She denies family history of hematuria. She has been followed up with Urology but no definitive cause has been found. I wonder if genetic testing for COL4A gene mutation would answer the question. Renal biopsy is suggestive of IgA. Encounter Details Date Type Department Care Team Description 02/14/2023 Orders Only Nephrology, [address] [id number] Tay Guerra MD [address] [place] [address] Essential hypertension with goal blood pressure less than 140/90*; Hematuria, microscopic Allergies Active Allergy Reactions Severity Noted Date Comments Ciprofloxacin 10/11/2011 [place] Syrup 04/11/2013 Soy Allergy Nausea/vomiting 09/10/2013 Fatigue, Headache Wheat 09/10/2013 Headache, Fatigue documented as of this encounter (statuses as of 02/14/2023) Medications Medication Sig Dispensed Refills Start Date End Date Status Multi Vitamin Daily Oral Tablet Take by mouth . 0 Active Iron-Vitamin C 65-125 MG Oral Tablet Take 1 Tablet by mouth in the morning. 0 Active [place]-3 1000 MG Oral Capsule Take by mouth . 0 Active Vitamin D (Cholecalciferol) 50 MCG (2000 UT) Oral Capsule Take by mouth . 0 Active Losartan Potassium 50 MG Oral Tablet (Cozaar) TAKE 2 TABLETS BY MOUTH EVERY MORNING 60 Tablet 11 07/11/2022 Active Fluticasone Propionate 50 MCG/ACT Nasal Suspension Administer 1 [place] into nostril in the morning. 0 Active [...] the morning. 30 Capsule 0 10/23/2022 Active amLODIPine Besylate 10 MG Oral Tablet (Norvasc) Take 0.5 Tablets by mouth in the morning. 30 Tablet 3 01/05/2023 Active Amphetamine-Dextroam phetamine 12.5 MG Oral Tablet (Adderall)Indication s:Attention deficit disorder (ADD) without hyperactivity Take 1 Tablet by mouth in the morning and 1 Tablet before bedtime. 60 Tablet 0 01/15/2023 Active documented as of this encounter (statuses as of 02/14/2023) Active Problems Problem Noted Date Raynaud's disease without gangrene 09/06 Flushing 09/06/2022 Left wrist pain 09/06/2020 Attention deficit disorder (ADD) without hyperactivity 06/23/2017 Essential hypertension with goal blood p ressure less than 140/90 01/21/2016 Allergic rhinitis due to pollen 08/11/19 16 Food allergy 08/11/2015 documented as of this encounter (statuses as of 02/14/2023) Resolved Problems Problem Noted Date Resolved Date [...] as of this encounter (statuses as of 02/14/2023) Immunizations Name Administration Dates Next Due PPD 08/15/2021 Rubella Vaccine 11/30/2013 SEASONAL INFLUENZA, PF, 6 M & Above, IM , (FLULAVAL or FLUZONE) 01/10/2020,03/22/2019,01/09/2018, 0 18 Seasonal Influenza, Quadriva lent, [...] Family Medicine Tosha Vaca MD [address] [place] [address] 05/22/2023 Office Visit Nephrology Tay Guerra MD [address] [place] [address] Scheduled Referrals Name Type Priority Associated Diagnoses Orde r Schedule GENETICS REFERRAL OP Referral Within 10 days (routine) Essential hypertension with goal blood pressure less than 140/90 Hematuria, microscopic Ordered: 02/14/2023 Health Maintenance Due Date Last Done Comments Hepatitis B (1 of 3 - 3-dose series) 1980 HIV Screening 07/08/1995 Hepatitis C Screening 1998 HPV/Co-Test 2010 Depression Screening 07/21/2021 07/21/2020 Cervical Cancer Screening 06/11/2022 Pap Smear 06/11/2022 06/11/2019, 08/28, 09/15/2016, Additional history exists COVID-19 Vaccine ( - 2022- season) 2022 07/19/2020, 06/28/2020 Influenza Vaccine (FLU shot) (#1) 2022 01/10/2020, [...] Not on filedocumented as of this encounter Visit Diagnoses Diagnosis Essential hypertension with goal blood pressure less than 140/90- Primary Hematuria, microscopic Microscopic hematuria documented in this encounter Care Teams Accreditation Manager Relationship Specialty Start Date End Date Tosha Vaca MD [address] [place] [id number] PCP - General Internal Medicine 09/06/22 documented as of this encounter
--- OUTSIDE RECORDS SUMMARY | 2023-04-17 21:26 | External Medical Summary ---
Author Name Unknown Address Unknown Organization K[facility] [address] [place] [address] Laboratory Report Ordering Provider Test Date Status EDITH SINGH 04/16/2023 15:16:07 Final Observation Date Value Abnormality Reference (Units ) Status SARS Coronavirus 2 04/16/2023 15:16:07 Negative N egative Final No SARS-CoV2 Coronavirus RNA detected by PCR (amplified probe).
This express test was developed and its performance characteristics determined by [facility]. It has not been cleared or approved by the U.S. Food and Drug Administration (FDA). FDA does not require this test to go thru premarket FDA review. This test is used for clinical purposes. It should not be regarded as investigational or for research. This laboratory is certified under the Clinical Laboratory Improvement Amendments (CLIA) as qualified to perform high complexity clinical laboratory testing.

This test is a nucleic acid amplification test (NAAT), a reverse transcriptase polymerase chain reaction (RT-PCR) test, or a Centers for Disease Control-acceptable equivalent. The test is performed in a high complexity Clinical Laboratory Improvement Amendments-(CLIA) certified laboratory. The test is acceptable for SARS-CoV-2 diagnosis, surveillance, and travel within the [place] and to most countries. Please check with local testing authorities about requirements before travel.

The validation of bronchial specimens, tracheal aspirates, and sputum for this assay was developed and performance characteristics determined by [facility]. The validation of alternate specimen types has not been cleared or approved by the U.S. Food and Drug Administration (FDA). It has been determined that such clearance is not necessary. Influenza virus A RNA [Prese nce] in Specimen by DILSHAD with probe detection 04/16/2023 15:16:07 Negative Negative Final No Influenza A RNA detected by PCR (amplified probe) Influenza virus B RNA [Prese nce] in Specimen by DILSHAD with probe detection 04/16/2023 15:16:07 Negative Negative Final No Influenza B RNA detected by PCR (amplified probe) Respiratory syncytial virus RNA [Identifier] in Specimen by DILSHAD with probe detection 04/16/2023 15:16:07 Negative Negative Final No Respiratory Syncytial Vir us RNA detected by PCR (amplified probe) Performing Location [facility] [place] [place] [address]
--- OUTSIDE RECORDS SUMMARY | 2023-04-17 21:26 | External Medical Summary | Summary of Care ---
Author Name Unknown Organization [facility] [address] [place] [address] Phone [phone] Care Team Providers Care Continuous Improvement Analyst Name Role Phone Tosha Vaca MD Primary Care Provider Reason for Visit * Reason Onset Date Comments Test Results 01/02/2023 Encounter Details Date Type Department Care Team Description 01/02/2023 Telephone Nephrology, [address] [address] Tay Guerra MD [address] [place] [address] Test Results Allergies Active Allergy Reactions Severity Noted Date Comments Ciprofloxacin 10/11/2011 [place] Syrup 04/11/2013 Soy Allergy Nausea/vomiting 09/10/2013 Fatigue, Headache Wheat 09/10/2013 Headache, Fatigue documented as of this encounter (statuses as of 01/09/2023) Medications Medication Sig Dispensed Refills Start Date End Date Status Multi Vitamin Daily Oral Tablet Take by mouth . 0 Active Iron-Vitamin C 65-125 MG Oral Tablet Take 1 Tablet by mouth in the morning. 0 Active [place]-3 1000 MG Oral Capsule Take by mouth . 0 Active Vitamin D (Cholecalciferol) 50 MCG (2000 UT) Oral Capsule Take by mouth . 0 Active Losartan Potassium 50 MG Oral Tablet (Cozaar) TAKE 2 TABLETS BY MOUTH EVERY MORNING 60 Tablet 11 07/11/2022 Active Fluticasone Propionate 50 MCG/ACT Nasal Suspension Administer 1 [place] into nostril in the morning. 0 Active Propranolol HCl 10 MG Oral Tablet (Inderal)Indication s:Flushing Take 1 Tablet by mouth 4 times a day as needed for Anxiety or Other (flushing). 30 Tablet 5 09/17/2022 Active Methylphenidate HCl ER (CD) 30 MG Oral Capsule Extended ReleaseIndications: Attention deficit disorder (ADD) without hyperactivity Take 1 Capsule by mouth in the morning. 30 Capsule 0 10/23/2022 Active Amphetamine-Dextroa mphetamine 12.5 MG Oral Tablet (Adderall)Indicatio ns:Attention deficit disorder (ADD) without hyperactivity Take 1 Tablet by mouth in the morning and 1 Tablet before bedtime. 60 Tablet 0 12/11/2022 Active Indapamide 1.25 MG Oral Tablet TAKE 1 TABLET BY MOUTH EVERY MORNING 30 Tablet 3 10/27/2022 3 Discontinue d(Patient preference/ discontinua tion) documented as of this encounter (statuses as of 01/09/2023) Active Problems Problem Noted Date Raynaud's disease without gangrene 09/06 Flushing 09/06/2022 Left wrist pain 09/06/2020 Attention deficit disorder (ADD) without hyperactivity 06/23/2017 Essential hypertension with goal blood p ressure less than 140/90 01/21/2016 Allergic rhinitis due to pollen 08/11/19 16 Food allergy 08/11/2015 documented as of this encounter (statuses as of 01/09/2023) Resolved Problems Problem Noted Date Resolved Date [...] as of this encounter (statuses as of 01/09/2023) Immunizations Name Administration Dates Next Due PPD [...] on file documented as of this encounter Miscellaneous Notes * Telephone Encounter - Jenn Shell LPN - 01/08/2023 8:59 AM EDT Spoke to patient over the phone and explained the result of biopsy. Home blood pressure is above target and she has stopped indapamide because of hyponatremia. Added amlodipine 5 mg daily initially. I have instructed her to increase this to 10 mg if her bloodpressure is still above 130/80 * Telephone Encounter - Jenn Shell LPN - 01/03/2023 3:17 PM EDT Please see MyG response regarding calling pt w/ test results. * Telephone Encounter - Jenn Shell LPN - 01/02/2023 1:32 PM EDT Call to pt. NA. Will send MyG. * Telephone Encounter - Jenn Shell LPN - 01/02/2023 1:32 PM EDT ----- Message from Tay Guerra MD sent at 01/02/2023 1:24 PM EDT ----- Tried to reach out to her to explain the results of the kidney biopsy. Can you please call her to the time when he can be reached documented in this encounter Plan of Treatment Upcoming Encounters Date Type Specialty Care Team Description 03/09/2023 Office Visit Family Medicine Tosha Vaca MD [address] [place] [address] 05/22/2023 Office Visit Nephrology Tay Guerra MD [address] [facility] [place] [address] Health Maintenance Due Date Last Done [...] 03/22/2019, Additional history exists Mammogram 08/02/2023 08/01/2022, /12/2020, 09/29/2016 DTaP,Tdap,and Td Vaccines (2 - Td [...] filedocumented as of this encounter Care Teams Continuous Improvement Analyst Relationship Specialty Start Date End Date Tosha Vaca MD [address] [place] [address] PCP - General Internal Medicine 09/06/22 documented as of this encounter
--- OUTSIDE RECORDS SUMMARY | 2023-04-17 21:26 | External Medical Summary | Summary of Care ---
Author Name Unknown Organization [facility] Address [address] [place] [address] Phone [phone] Care Team Providers Care American History Professor Name Role Phone Tosha Vaca MD Primary Care Provider Reason for Visit * Reason Onset Date Comments Appointment Canceled 03/05/2023 Encounter Details Date Type Department Care Team ([facility] st Contact Info) Description 03/05/2023 Telephone Medical Genetics [address] [facility], [place] [address] [place] [address] Ruby Perry, [place] [address] [facility] [address] [place] [address] Appointment Canceled Allergies Active Allergy Reactions Criticality Noted Date Comments Ciprofloxacin 10/11/2011 [place] Syrup 04/11/2013 Soy Allergy Nausea/vomiting 09/10/2013 Fatigue, Headache Wheat 09/10/2013 Headache, Fatigue documented as of this encounter (statuses as of 03/05/2023) Medications Medication Sig Dispensed Refills Start Date End Date Status Multi Vitamin Daily Oral Tablet Take by mouth . 0 Active Iron-Vitamin C 65-125 MG Oral Tablet Take 1 Tablet by mouth in the morning. 0 Active [place]-3 1000 MG Oral Capsule Take by mouth . 0 Active Vitamin D (Cholecalciferol) 50 MCG (1999 UT) Oral Capsule Take by mouth . 0 Active Losartan Potassium 50 MG Oral Tablet (Cozaar) TAKE 2 TABLETS BY MOUTH EVERY MORNING 60 Tablet 11 07/11/2022 Active Fluticasone Propionate 50 MCG/ACT Nasal Suspension Administer 1 [place] into nostril in the morning. 0 Active [...] as of this encounter (statuses as of 03/05/2023) Active Problems Problem Noted Date Diagnosed Date Raynaud's disease without gangrene 09/06/2022 Flushing 09/06/2022 Left wrist pain 09/06/2020 Attention deficit disorder (ADD) without hyperac tivity 06/23/2017 Essential hypertension with goal blood pressure less than 140/90 01/21/2016 Allergic rhinitis due to pollen 08/11/2015 Food allergy 08/11/2015 documented as of this encounter (statuses as of 03/05/2023) Resolved Problems Problem Noted Date Diagnosed Date Resolved Date Well adult exam 01/10/2018 09/15/2019 ADD (attention deficit disorder) 08/11/2015 06/23/2017 Gestational diabetes 09/10/2013 014 Overview: Hgb A1c was normal. All BS testings were normal. Pt is not GDM. Need for rubella vaccination 04/21/2013 11/29/2013 Overview: Rubella equivocal at NOB visit. Vaccinate . Encounter for supervision of other normal 04/11/2013 11/29/2013 Overview: Reports bleeding following of son. Did not require blood transfusion ICD-10 update of inactive term Allergic 04/11/2013 11/29/2013 Overview: Allergy to corn. Will not be able to drink Glucola d/t being made with corn syrup. Discussed checking blood sugars NO KNOWN PROBLEMS 04/18/2012 09/15/2019 documented as of this encounter (statuses as of 03/05/2023) Immunizations Name Administration Dates Next Due PPD [...] drink = 0.6 oz pur e alcohol) PHQ-2 Answer Date Recorded PHQ Adult Total Score 0 07/21/2020 Hunger Vital Sign Answer Date Recorded Within the past 12 months, y ou worried that your food would run out before you got the money to buy more. Never true 07/22/19 21 Within the past 12 months, t he food you bought just didn't last and you didn't have money to get more. Never true 07/21/2020 Sex and Gender Information Value Date Recorded Sex Assigned at Not on file Gender Identity Not on file Sexual Orientation Not on file Job Start Date Occupation Industry Not on file Not on file Not on file documented as of this encounter Miscellaneous Notes * Telephone Encounter - Ruby Perry MS - 03/05/2023 2:04 PM EST Called Eve regarding her recent referral to genetics. LVM requesting call back and provided phone number. Reason for call: Called to offer appointment. Ruby Perry MS 03/05/2023 2:05 PM documented in this encounter Plan of Treatment Upcoming Encounters Date Type Department Care Team (Late st Contact Info) Description 03/09/2023 9:00 AM EST Office Visit [facility] [address] [place] [address] Tosha Vaca MD [address] [place] [address] 05/22/2023 12:00 PM EST Office Visit Nephrology, [address] [address] Tay Guerra MD [address] [place] [address] Health Maintenance Due Date Last Done Comments Hepatitis B (1 of 3 - 3-dose series) 1980 HIV Screening 07/08/1995 Hepatitis C Screening 1998 HPV/Co-Test 2010 Depression Screening 07/21/2021 07/21/2020 Cervical Cancer Screening 06/11/2022 Pap Smear 06/11/2022 06/11/2019, 08/28, 09/15/2016, Additional history exists COVID-19 Vaccine ( season) 2022 07/19/2020, 06/28/2020 Influenza Vaccine (FLU [...] filedocumented as of this encounter Care Teams American History Professor Relationship Specialty Start Date End Date Tosha Vaca MD [address] [place] [address] PCP - General Internal Medicine 09/06/22 documented as of this encounter
--- OUTSIDE RECORDS SUMMARY | 2023-04-17 21:26 | External Medical Summary | Summary of Care ---
Author Name Unknown Organization [facility] Address [address] [place] [address] Phone [phone] Care Team Providers Care Marine Structural Designer Name Role Phone Tosha Vaca MD Primary Care Provider Reason for Visit * Reason Comments Acute Woke up Sunday joan ng with cough, chest congestion, sore throat, fever. Home Covid test negative on Sunday. Encounter Details Date Type Department Care Team (Late st Contact Info) Description 04/16/2023 2:40 PM EST Office Visit Family Practice [facility] [address] [facility] [place] [address] Tosha Vaca MD [address] [place] [address] Viral URI with cough* Allergies Active Allergy Reactions Criticality Noted Date Comments Ciprofloxacin 10/11/2011 [place] Syrup 04/11/2013 Soy Allergy Nausea/vomiting 09/10/2013 Fatigue, Headache Wheat 09/10/2013 Headache, Fatigue documented as of this encounter (statuses as of 04/16/2023) Medications Medication Sig Dispensed Refills Start Date End Date Status Multi Vitamin Daily Oral Tablet Take by mouth . 0 Active Iron-Vitamin C 65-125 MG Oral Tablet Take 1 Tablet by mouth in the morning. 0 Active [place]-3 1000 MG Oral Capsule Take by mouth . 0 Active Vitamin D (Cholecalciferol) 50 MCG (2000 UT) Oral Capsule Take by mouth . 0 Active Losartan Potassium 50 MG Oral Tablet (Cozaar) TAKE 2 TABLETS BY MOUTH EVERY MORNING 60 Tablet 11 07/11/2022 Active Fluticasone Propionate 50 MCG/ACT Nasal Suspension Administer 1 [place] into nostril in the morning. 0 Active Propranolol HCl 10 MG Oral Tablet (Inderal)Indications: Flushing Take 1 Tablet by mouth 4 times a day as needed for Anxiety or Other (flushing). 30 Tablet 5 09/17/2022 Active amLODIPine Besylate 10 MG Oral Tablet (Norvasc) Take 1 Tablet by mouth in the morning. 30 Tablet 3 04/09/2023 Active Amphetamine-Dextroamp hetamine 12.5 MG Oral Tablet (Adderall)Indications :Attention deficit disorder (ADD) without hyperactivity Take 1 Tablet by mouth 2 times a day. 60 Tablet 0 04/11/2023 Active guaiFENesin-Codeine 100-10 MG/5ML Oral Syrup (Robitussin AC)Indications:Viral URI with cough Take 5 mL by mouth every 4 hours as needed for Cough. 120 mL 0 04/16/2023 Active documented as of this encounter (statuses as of 04/16/2023) Active Problems Problem Noted Date Diagnosed Date Gross hematuria 03/09/2023 IgA nephropathy 03/09/2023 Raynaud's disease without gangrene 09/06/2022 Flushing 09/06/2022 Left wrist pain 09/06/2020 Attention deficit disorder (ADD) without hyperac tivity 06/23/2017 Essential hypertension with goal blood pressure less than 140/90 01/21/2016 Allergic rhinitis due to pollen 08/11/2015 Food allergy 08/11/2015 documented as of this encounter (statuses as of 04/16/2023) Resolved Problems Problem Noted Date Diagnosed Date [...] as of this encounter (statuses as of 04/16/2023) Immunizations Name Administration Dates Next Due PPD 08/15/2021 Rubella Vaccine 11/30/2013 Seasonal Influenza, PF, 6 M & above, IM , (FluLaval or Fluzone) 03/09/2023,01/10/2020,03/22/2019, 0 18,06/23/2017 Seasonal Influenza, Quadriva lent, No Preserve, IM 04/13/2016 Seasonal Influenza, Split, I IV3, With Preserve, Inj 02/13/2014 TDAP (age 10 and older)(Boostrix) 09/10/2013 documented as of this encounter Social History Tobacco Use Types Packs/Day Years Used Date Smoking Tobacco: Former Cigarettes Q uit: 09/10/2002 Smokeless Tobacco: Never Tobacco Cessation:Counseling Given: Not Answered Alcohol Use Standard Drinks/Week Comments Yes 3 (1 standard drink = 0.6 oz pur e alcohol) PHQ-2 Answer Date Recorded PHQ Adult Total Score 0 03/09/2023 Hunger Vital Sign Answer Date Recorded Within the past 12 months, y ou worried that your food would run out before you got the money to buy more. Never true 03/09/20 23 Within the past 12 months, t he food you bought just didn't last and you didn't have money to get more. Never true 03/09/2023 Sex and Gender Information Value Date Recorded Sex Assigned at Female 03/09/2023 9:02 AM EST Gender Identity Female 03/09/2023 9:02 AM EST Sexual Orientation Choose not to disclose 2022 9:02 AM EST Job Start Date Occupation Industry Not on file Not on file Not on file documented as of this encounter Last Filed Vital Signs Vital Sign Reading Time Taken Comments Blood Pressure 134/76 04/16/2023 2:51 PM EST Pulse 101 04/16/2023 2:51 PM EST Temperature 37.9 C (100.3 F) 04/16/2023 2:[address] Respiratory Rate 18 04/16/2023 2:51 PM EST Oxygen Saturation 97% 04/16/2023 2:51 PM EST Inhaled Oxygen Concentration - - Weight 76.9 kg (169 lb 9.6 oz) 04/16/2023 2:51 P M EST Height - - Body Mass Index 27.37 03/09/2023 9:04 AM EST documented in this encounter Progress Notes * Tosha Vaca MD - 04/16/2023 2:58 PM EST Images from the original note were not included. History of Present Illness Eve Early is a 42 year old female that presents for Acute (Woke up Sunday morning with cough, chest congestion, sore throat, fever. Home Covid test negative on Sunday.) Accompanied by who helps with history. Sunday [id number] Sunday started with cough. Waking up from sleep every 30min. Today fever is a little better, cough is worse. Coughing can be productive, fits make it hard to breathe. No chest pain. Sore throat for two days, now just from coghing. Ears are stuffy. Runny nose, sinuses are okay. Yes diarrhea. No rash. Lots of tylenol, mucinex, dextromethorphan. COVID test negative 48hrs ago. Oldest child had high fever for a week, all testing negative. Ended up treating with doxycycline on03/30. Pule Ox dips to 93% with coughign fit, rebounds fast. Nicotine: none Cannabis; none Alcohol: occsaionally Current medications and allergies reviewed. Past medical history and problem list reviewed. Physical Exam Vitals: 04/16/23 1451 Temp: 37.9 C (100.3 F) Pulse: 101 Resp: 18 SpO2: 97% BP: 134/76 BP Readings from Last 3 Encounters: 04/16/23 134/76 03/09/23 114/78 12/22/22 109/62 Wt Readings from Last 3 Encounters: 04/16/23 76.9 kg (169 lb 9.6 oz) 03/09/23 77.6 kg (171 lb) 11/16/22 75.9 kg (167 lb 6.4 oz) Physical Exam Vitals and nursing note reviewed. Constitutional: General: She is not in acute distress. Appearance: Normal appearance. She is not ill-appearing. HENT: Head: Normocephalic and atraumatic. Right Ear: Tympanic membrane, ear canal and external ear normal. There is no impacted cerumen. Left Ear: Tympanic membrane, ear canal and external ear normal. There is no impacted cerumen. Nose: Nose normal. Mouth/Throat: Mouth: Mucous membranes are moist. Pharynx: Oropharynx is clear. Comments: No peritonsillar abscess or cellulitis. Normal uvula. Tonsils without swelling, erythem or exudate. Eyes: General: No scleral icterus. Conjunctiva/sclera: Conjunctivae normal. Pupils: Pupils are equal, round, and reactive to light. Neck: Thyroid: No thyroid mass, thyromegaly or thyroid tenderness. Cardiovascular: Rate and Rhythm: Normal rate and regular rhythm. Heart sounds: No murmur heard. Pulmonary: Effort: Pulmonary effort is normal. Breath sounds: Normal breath sounds. Comments: Lots of coughing, hard to take deep breath Lymphadenopathy: Cervical: No cervical adenopathy. Skin: General: Skin is warm and dry. Neurological: Mental Status: She is alert. Psychiatric: Mood and Affect: Mood normal. Behavior: Behavior normal. I have reviewed the following results: CBC and BMP Assessment and Plan Viral URI with cough If positive for COVID will send prescription for Paxlovid given hypertension. Otherwise continue with [id number] supportive therapies, stronger antitussive set. Discussed that flying may not be best choice right now, can use her judgment. Continue monitoring pulse ox, call for worsening fever, pulse ox less than 90, or worsening symptoms. - INFLUENZA A/B RSV SARS-COV2,PCR; Future - guaiFENesin-Codeine 100-10 MG/5ML Oral Syrup (Robitussin AC); Take 5 mL by mouth every 4 hours asneeded for Cough. I have reviewed the patient's controlled substance dispensing history in the Prescription Drug Monitoring Program in compliance with the [facility] regulations before prescribing a controlled substance. Wrap-Up Time: I spent a total of 10-19 minutes (exact time 18 mins) on the date of service in preparation, delivery, and documentation of the care provided to Eve Early excluding any time spent in the performance of separately billed services. documented in this encounter Plan of Treatment Upcoming Encounters Date Type Department Care Team (Late st Contact Info) Description 05/23/2023 3:00 PM EST Office Visit Nephrology, [address] [address] Tay Guerra MD [address] [place] [address] 12/21/2023 4:30 PM EDT Office Visit Gynecology/Obstetrics [address] [address] Silva Porras PA-C [address] [place] [address] 03/10/2024 10:40 AM EST Office Visit Family Practice [facility] [address] [facility] [place] [address] Tosha Vaca MD [address] [facility] [place] [address] Pending Results Name Type Priority Associated Diagnoses Date /Time INFLUENZA A/B RSV SARS-COV2,PCR Lab Routine Viral URI with cough 04/16/2023 3:16 PM EST Scheduled Orders Name Type Priority Associated Diagnoses Orde r Schedule INFLUENZA A/B RSV SARS-COV2,PCR Lab Routine Viral URI with cough Expected: 04/16/2023 (Approximate), Expires: 04/15/2024 Health Maintenance Due Date Last Done Comments Hepatitis B (1 of 3 - 3-dose series) 1980 HIV Screening 07/08/1995 Hepatitis C Screening 1998 HPV/Co-Test 2010 Cervical Cancer Screening 06/11/2022 Pap Smear 06/11/2022 06/11/2019, 08/28, 09/15/2016, Additional history exists COVID-19 Vaccine ( season) 2022 07/19/2020, 06/28/2020 Mammogram 08/02/2023 08/01/2022, 06/29, 09/29/2016 DTaP,Tdap,and Td Vaccines (2 - Td or Tdap) 09/11/2023 09/10/2013 GFR 11/11/2023 11/10/2022, 07/0 09/2022, 08/01/2022, Additional history exists Depression Screening 03/09/2024 03/09/2023 Albumin/Creatinine Ratio 04/12/2024 04/12/2021 Diabetes Screening 11/10/2025 11/10/2022, 0 11/10/2022, 11/02/2022, Additional history exists Lipid Panel 08/02/2027 08/01/2022, 01/22/2016 Influenza Vaccine (FLU shot) Completed 01/2023, 01/10/2020, 03/22/2019, Additional history exists GARDASIL-HPV IMMUNIZATION SERIES Aged Out No longer [...] as of this encounter Visit Diagnoses Diagnosis Viral URI with cough- Primary Acute upper respiratory infections of unspecified site documented in this encounter Care Teams Marine Structural Designer Relationship Specialty Start Date End Date Tosha Vaca MD [address] [facility] [place] [address] PCP - General Internal Medicine 09/06/22 documented as of this encounter
--- OUTSIDE RECORDS SUMMARY | 2023-04-17 21:26 | External Medical Summary | Summary of Care ---
Author Name Unknown Organization [facility] Address [address] [place] [address] Phone [phone] Care Team Providers Care Decoration Checker Name Role Phone Francisco Vaca MD Primary Care Provider Reason for Visit * Reason Onset Date Comments Medication Refill 03/03/2023 Encounter Details Date Type Department Care Team (Late st Contact Info) Description 03/03/2023 Refill Family Medicine [facility] [address] [place] [address] Francisco Vaca MD [address] [place] [address] Attention deficit disorder (ADD) without hyperactivity Allergies Active Allergy Reactions Criticality Noted Date Comments Ciprofloxacin 10/11/2011 [place] Syrup 04/11/2013 Soy Allergy Nausea/vomiting 09/10/2013 Fatigue, Headache Wheat 09/10/2013 Headache, Fatigue documented as of this encounter (statuses as of 03/05/2023) Medications Medication Sig Dispensed Refills Start Date End Date Status Multi Vitamin Daily Oral Tablet Take by mouth . 0 Active Iron-Vitamin C 65-125 MG Oral Tablet Take 1 Tablet by mouth in the morning. 0 Active [place]-3 1000 MG Oral Capsule Take by mouth . 0 Active Vitamin D (Cholecalciferol) 50 MCG (1999 [place]) Oral Capsule Take by mouth . 0 Active Losartan Potassium 50 MG Oral Tablet (Cozaar) TAKE 2 TABLETS BY MOUTH EVERY MORNING 60 Tablet 11 07/11/2022 Active Fluticasone Propionate 50 MCG/ACT Nasal Suspension Administer 1 [place] into nostril in the morning. 0 Active [...] the morning. 30 Tablet 3 01/05/2023 Active Amphetamine-Dextroa mphetamine 12.5 MG Oral Tablet (Adderall)Indicatio ns:Attention deficit disorder (ADD) without hyperactivity Take 1 Tablet by mouth 2 times a day. 60 Tablet 0 03/05/2023 Active Amphetamine-Dextroa mphetamine 12.5 MG Oral Tablet (Adderall)Indicatio ns:Attention deficit disorder (ADD) without hyperactivity Take 1 Tablet by mouth in the morning and 1 Tablet before bedtime. 60 Tablet 0 01/15/2023 3 Discontinue d(Refill) documented as of this encounter (statuses as [...] encounter Miscellaneous Notes * Telephone Encounter - Francisco Vaca MD - 03/05/2023 3:40 PM EST Signed Prescriptions: Disp Refills Amphetamine-Dextroamphetamine 12.5 MG Oral*60 Tab*0 Sig: Take 1 Tablet by mouth 2 times a day.Authorizing Provider: FRANCISCO VACA * Telephone Encounter - Francisco Vaca MD - 03/05/2023 3:39 PM EST I have reviewed the patient's controlled substance dispensing history in the Prescription Drug Monitoring Program in compliance with the [facility] regulations before prescribing a controlled substance. * Telephone Encounter - Jeana Ham LPN - 03/05/2023 7:01 AM ESTPending Prescriptions: Disp Refills Amphetamine-Dextroamphetamine 12.5 MG Oral*60 Tab*0 Sig: Take 1 Tablet by mouth in the morning and 1 Tablet before bedtime. * Telephone Encounter - Jeana Ham LPN - 03/05/2023 7:00 AM EST Did you pend patient's preferred pharmacy and medication before forwarding?yes Pharmacy: [facility] [id number] [place] Pending Prescriptions: Disp Refills Amphetamine-Dextroamphetamine 12.5 MG Ora*60 Tab*0 Sig: Take 1 Tablet by mouth in the morning and 1 Tablet before bedtime. Last Visit: 06/23/2017 (in office), Visit date not found (telemedicine) Next Visit: Visit date not found If no future appointments scheduled, and last appointment is greater than a year ago, please schedule patient for a follow-up appointment Last date the medication was ordered: 01/15/23 Is this request for a controlled substance?Yes, What was the last refill date 01/15/23 w/ quantity 60 and dosage 12.5mg and Urine Drug Screen was completed Urine Drug Screen:No results found for this or any previous visit. Patient Phone Numbers Labs: Lab Results Component Value Date/Time CREAT 0.9 11/10/2022 02:07 PM CREAT 0.8 03/22/2019 10:26 AM POTASSIUM 4.4 11/10/2022 02:07 PM POTASSIUM 4.3 03/22/2019 10:26 AM TSH 3.90 08/01/2022 07:51 AM TSH 2.70 2019 09:20 AM LDLCALC 96 08/01/2022 07:51 AM LDLCALC 99 01/22/2016 10:14 AM LDLDIRECT NOT APPLICABLE 01/22/2016 10:14 AM ALT 31 11/25/2022 02:05 PM ALT 6 (L) 06/23/2017 10:20 AM HGBA1C 5.5 11/10/2022 02:07 PM HGBA1C 5.4 10/21/2013 03:45 PM documented in this encounter Plan of Treatment Upcoming Encounters Date Type Department Care Team (Late st Contact Info) Description 03/09/2023 9:00 AM EST Office Visit Family [facility] [address] [id number] Francisco Vaca MD [address] [address] 05/22/2023 12:00 PM EST Office Visit Nephrology, [address] [place] [address] Tay Guerra MD [address] [place] [address] [place] [address] Health Maintenance Due Date Last Done Comments [...] or Tdap) 09/11/2023 09/10/2013 GFR 11/11/2023 11/10/2022, 07/09/2022, 08/01/2022, Additional history exists Albumin/Creatinine Ratio 04/12/2024 [...] as of this encounter Visit Diagnoses Diagnosis Attention deficit disorder (ADD) without hyperactivity documented in this encounter Care Teams Decoration Checker Relationship Specialty Start Date End Date Francisco Vaca MD [address] [place] [id number] PCP - General Internal Medicine 09/06/22 documented as of this encounter
--- OUTSIDE RECORDS SUMMARY | 2023-04-17 21:26 | External Medical Summary | Summary of Care ---
Author Name Unknown Organization [facility] Address [address] [place] [address] Phone [phone] Care Team Providers Care Manager Inventory Name Role Phone Tosha Vaca MD Primary Care Provider Encounter Details Date Type Department Care Team Description 12/20/2022 COVID-19 Recovery Outreach Interventional Radiology [facility] [place], [address] [place] [address] [place] [address] Gretta Centeno, RN Allergies Active Allergy Reactions Severity Noted Date Comments Ciprofloxacin 10/11/2011 [place] Syrup 04/11/2013 Soy Allergy Nausea/vomiting 09/10/2013 Fatigue, Headache Wheat 09/10/2013 Headache, Fatigue documented as of this encounter (statuses as of 12/25/2022) Medications Medication Sig Dispensed Refills Start Date End Date Status Multi Vitamin Daily Oral Tablet Take by mouth . 0 Active Iron-Vitamin C 65-125 MG Oral Tablet Take 1 Tablet by mouth in the morning. 0 Active [place]-3 1000 MG Oral Capsule Take by mouth . 0 Active Vitamin D (Cholecalciferol) 50 MCG (2000 [place]) Oral Capsule Take by mouth . 0 Active Losartan Potassium 50 MG Oral Tablet (Cozaar) TAKE 2 TABLETS BY MOUTH EVERY MORNING 60 Tablet 11 07/11/2022 Active Fluticasone Propionate 50 MCG/ACT Nasal Suspension Administer 1 [place] into nostril in the morning. 0 Active [...] before bedtime. 60 Tablet 0 12/11/2022 Active documented as of this encounter (statuses as of 12/25/2022) Active Problems Problem Noted Date Raynaud's disease without gangrene 09/06 [place] 09/06/2022 Left wrist pain 09/06/2020 Attention deficit disorder (ADD) without hyperactivity 06/23/2017 Essential hypertension with goal blood p ressure less than 140/90 01/21/2016 Allergic rhinitis due to pollen 08/11/19 16 Food allergy 08/11/2015 documented as of this encounter (statuses as of 12/25/2022) Resolved Problems Problem Noted Date Resolved Date [...] as of this encounter (statuses as of 12/25/2022) Immunizations Name Administration Dates Next Due PPD [...] Medicine Tosha Vaca MD [address] [place] [id number] 05/22/2023 Office Visit Nephrology Tay Guerra MD [address] [place] [address] Health Maintenance Due Date Last Done Comments Hepatitis B (1 of 3 - 3-dose series) 1980 HIV Screening 07/08/1995 Hepatitis C Screening 1998 HPV/Co-Test 2010 COVID-19 Vaccine (3 - Pfizer series) 09/13/2020 07/19/2020, 06/28/2020 Depression Screening, Annual for Pts 12 and Over 07/21/2021 07/21/2020 Cervical Cancer Screening 06/11/2022 Pap [...] filedocumented as of this encounter Care Teams Manager Inventory Relationship Specialty Start Date End Date Tosha Vaca MD [address] [facility] [place] [id number] PCP - General Internal Medicine 09/06/22 documented as of this encounter
--- OUTSIDE RECORDS SUMMARY | 2023-04-17 21:26 | External Medical Summary | Summary of Care ---
Author Name Unknown Organization [facility] Address [address] [place] [address] Phone [phone] Care Team Providers Care Drafter Civil Engineering Name Role Phone Tosha Vaca MD Primary Care Provider Reason for Visit * Precert (Within 10 days (routine)) - Authorized Specialty Diagnoses / Procedures Referred By Contac t Referred To Contact Radiology Diagnoses Essential (primary) hypertension Other microscopic hematuria Procedures WI RENAL BIOPSY PRQ TROCAR/NEEDLE CHG US GUIDANCE NEEDLE PLACEMENT IMG S&I Tay Guerra MD [address] [place] [id number] Referral ID Status Reason Start Date Expiration Date V isits Requested Visits Authorized [id number] Authorized Precert 12/15/2022 09/09/2025 [id number] Encounter Details Date Type Department Care Team Description 12/22/2022 Hospital Encounter Radiology Waiting Room [facility] 1st [address], [place] [id number] Milad David MD [address], [place] [id number] Arrived Allergies Active Allergy Reactions Severity Noted Date Comments Ciprofloxacin 10/11/2011 Buffalo Syrup 04/11/2013 Soy Allergy Nausea/vomiting 09/10/2013 Fatigue, Headache Wheat 09/10/2013 Headache, Fatigue documented as of this encounter (statuses as of 12/23/2022) Medications Medication Sig Dispensed Refills Start Date End Date Status Multi Vitamin Daily Oral Tablet Take by mouth . 0 Active Iron-Vitamin C 65-125 MG Oral Tablet Take 1 Tablet by mouth in the morning. 0 Active [place]-3 1000 MG Oral Capsule Take by mouth . 0 Active Vitamin D (Cholecalciferol) 50 MCG (2000 UT) Oral Capsule Take by mouth . 0 Active Losartan Potassium 50 MG Oral Tablet (Cozaar) TAKE 2 TABLETS BY MOUTH EVERY MORNING 60 Tablet 11 07/11/2022 Active Fluticasone Propionate 50 MCG/ACT Nasal Suspension Administer 1 [place] into nostril in the morning. 0 Active [...] as of this encounter (statuses as of 12/23/2022) Active Problems Problem Noted Date Raynaud's disease without gangrene 09/06 Flushing 09/06/2022 Left wrist pain 09/06/2020 Attention deficit disorder (ADD) without hyperactivity 06/23/2017 Essential hypertension with goal blood p ressure less than 140/90 01/21/2016 Allergic rhinitis due to pollen 08/11/19 16 Food allergy 08/11/2015 documented as of this encounter (statuses as of 12/23/2022) Resolved Problems Problem Noted Date Resolved Date [...] as of this encounter (statuses as of 12/23/2022) Immunizations Name Administration Dates Next Due PPD [...] Sign Reading Time Taken Comments Blood Pressure 109/62 12/22/2022 1:00 PM EDT Pulse 60 12/22/2022 1:00 PM EDT Temperature 36.2 C (97.2 F) 12/22/2022 11:30 AM E DT Respiratory Rate 12 12/22/2022 1:00 PM EDT Oxygen Saturation 100% 12/22/2022 1:00 PM EDT Inhaled Oxygen Concentration - - Weight - - Height - - Body Mass Index - - documented in this encounter Discharge Instructions * Discharge Instr - AVS* Sohan Zaidi MD - 12/22/2022 10:18 AM EDT Discharge Date: 12/22/2022 Provider: Dr. Sohan Zaidi If you are experiencing any problems related to your procedure, please contact Interventional Radiology at [phone] during normal business hours: Sunday - Sunday, 8:00 am - 4:00 pm. If a problem occurs outside of normal business hours, please call the hospital make up operator at [phone] and ask for the Interventional Radiologist vocational rehab consultant. Contact scheduling for Interventional Radiology at [phone] during normal business hours: Sunday - Sunday, 8:00 am - 4:00 pm. The information below provides you with the instructions and the list of medications you need to betaking following discharge from the hospital. If you have any questions, please ask before leaving.Please carry this letter with you when you see your doctor in the clinic. If you have questions, you can reach us at the numbers above. SPECIAL INSTRUCTIONS kidney Biopsy Care After Your Biopsy If you experience pain or discomfort at the site you may use a cold pack on the site and/or take acetaminophen (Tylenol) or your preferred pain medicine as directed. Avoid strenuous activity for 24 to 48 hours after the procedure. Do not lift anything heavier than 10 pounds for 3 days after the procedure. Gradually increase your activity after 24 to 48 hours after the procedure. Keep the dressing clean and dry; change as needed. Dressing can be removed in 24 hours. You may shower after 24 hours. Gently wash the area and pat it dry. Please DO NOT take a bath, soak in a hot tub, or swim until the wound is completely healed. Follow Up Your requesting physician will contact you with the results of your test. Please allow 5 to 7 business days for your results. Please check [facility] messages or contact the referring physician for results. When to Call Interventional Radiology Call Interventional Radiology right away if you have any of the following: Fever above 100 degrees Fahrenheit Increased bleeding, redness, swelling, warmth, or discharge at the incision site. Constant or increasing pain, numbness, coldness, or tingling around the incision area. Vomiting or nausea that does not go away If at any time you experience any of the following or feel you are having a medical emergency, [id number] for emergency assistance. Chest Pain Sudden, severe shortness of breath Rapid heart rate Sudden onset of weakness Coughing up blood See your referring physician for follow-up appointment. Do not smoke or use tobacco products in any way! If you feel suicidal or homicidal, please call the crisis hotline at [phone]-BJKR ([phone]) MODERATE SEDATION You may have received medication that made you comfortable/sedated you during your procedure. This is considered moderate sedation. This medication was given to relax you. You may also not remember having the procedure done. It may take up to 24 hours for this medication to be out of your system. Because of this, you should observe the following for the next 24 hours: Do not drink alcohol or take depressant drugs. Do not operate any type of machinery that requires hand-eye coordination. Do not sign any legal papers or documents. Do not make any financial decisions. You should be in the presence of an adult for the remainder of the day. If you are experiencing any problems related to your procedure, you should contact the Interventional Radiology physician unless otherwise directed. Driving: Do not drive. Diet: You may resume your current diet as tolerated. Return to work or school: You may return to school or work 24 hours after the procedure, unless otherwise instructed by the physician. documented in this encounter Progress Notes * Sohan Zaidi MD - 12/22/2022 11:25 AM EDT INTERVENTIONAL RADIOLOGY DISCHARGE NOTE [facility] [address] [facility] [address] Name: Eve Early Location: RADIOLOGY WAITING ROOM/IR Date: 12/22/2022 Time: 11:25 AM I have personally evaluated the patient and certify that he/she is recovered for safe discharge from the Interventional Radiology Department. documented in this encounter H&P Notes * Sohan Zaidi MD - 12/22/2022 10:00 AM EDT HISTORY & PHYSICAL - Interventional Radiology Service [facility] [address] [facility] [address] Name: Eve Early Location: Room/bed info not found Date: 12/21/2022 Time: 5:26 PM CHIEF COMPLAINT: Renal biopsy HISTORY OF PRESENT ILLNESS: This is a 42 y/o F with pmh of HTN who is being worked up for gross/microscopic hematuria and presents for renal biopsy. Pt denies fever or chills. Past Medical History: Diagnosis Date Attention deficit disorder (ADD) without hyperactivity 06/23/2017 Essential hypertension with goal blood pressure less than 140/90 01/21/2016 Food allergy 08/11/2015 NO KNOWN PROBLEMS Past Surgical History: Procedure Laterality Date DENTAL SURGERY PROCEDURE NEC Social History Socioeconomic History Marital status: Spouse name: Not on file Number of children: 1 Years of education: Not on file Highest education level: Not on file Occupational History Occupation: [employer] Tobacco Use Smoking status: Former Types: Cigarettes Quit date: 09/10/2002 Years since quittin.2 Smokeless tobacco: Never Substance and Sexual Activity Alcohol use: Yes Alcohol/week: 3.0 standard drinks Types: 3 12 oz of beer per week Drug use: No Sexual activity: Yes Partners: Male control/protection: Surgical Comment: vasectomy Other Topics Concern Not on file Social History 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 Garcia and Timothy Polanco Son is 3 1/2 Social Determinants of Health Financial Resource Strain: Not on file Food Insecurity: Not on file Transportation Needs: Not on file Physical Activity: Not on file Stress: Not on file Social Connections: Not on file Intimate Partner Violence: Not on file Housing Stability: Not on file Family History Problem Relation Age of Onset No Past Hx None Cancer Grandmother (Maternal) leukemia Cancer Grandfather (Maternal) prostate ca Cancer Grandfather (Paternal) lung ca Diabetes Aunt (Unspecified) Type 2 Hypertension Mother Allergies Mother Obesity Mother Hypertension Father Allergies Father Asthma Father Stroke Grandmother (Paternal) Breast Cancer Aunt (Maternal) Review of patient's allergies indicates: Allergen Reactions Ciprofloxacin Buffalo Syrup Soy Allergy Nausea/vomiting Fatigue, Headache Wheat Headache, Fatigue Current Outpatient Medications Medication Sig Dispense Refill Amphetamine-Dextroamphetamine 12.5 MG Oral Tablet (Adderall) Take 1 Tablet by mouth in the morning and 1 Tablet before bedtime. 60 Tablet 0 Indapamide 1.25 MG Oral Tablet TAKE 1 TABLET BY MOUTH EVERY MORNING (Patient not taking: Reported on 11/16/2022) 30 Tablet 3 Methylphenidate HCl ER (CD) 30 MG Oral Capsule Extended Release Take 1 Capsule by mouth in the morning. (Patient not taking: Reported on 11/16/2022) 30 Capsule 0 Propranolol HCl 10 MG Oral Tablet (Inderal) Take 1 Tablet by mouth 4 times a day as needed for Anxiety or Other (flushing). 30 Tablet 5 Fluticasone Propionate 50 MCG/ACT Nasal Suspension Administer 1 [place] into nostril in the morning. Losartan Potassium 50 MG Oral Tablet (Cozaar) TAKE 2 TABLETS BY MOUTH EVERY MORNING 60 Tablet 11 Iron-Vitamin C 65-125 MG Oral Tablet Take 1 Tablet by mouth in the morning. Multi Vitamin Daily Oral Tablet Take by mouth . [place]-3 1000 MG Oral Capsule Take by mouth . Vitamin D (Cholecalciferol) 50 MCG (2000 UT) Oral Capsule Take by mouth . No current facility-administered medications for this encounter. REVIEW OF SYSTEMS: As per HPI. OBJECTIVE: There were no vitals taken for this visit. PHYSICAL EXAM: Constitutional: no acute distress LABS: CBC Results: PT INR Results: BUN Results: Lab Results Component Value Date/Time BUN - [facility] 21 (H) 11/10/2022 02:07 PM BUN - [facility] 14 11/02/2022 02:13 PM BUN - [facility] 18 08/01/2022 07:51 AM BUN - [facility] 20 03/22/2019 10:26 AM BUN - [facility] 18 06/23/2017 10:20 AM BUN - [facility] 10 01/22/2016 10:14 AM Creatinine Results: Lab Results Component Value Date/Time CREATININE - [facility] 0.9 11/10/2022 02:07 PM CREATININE - [facility] 1.0 11/02/2022 02:13 PM CREATININE - [facility] 0.8 08/01/2022 07:51 AM CREATININE - [facility] 0.8 03/22/2019 10:26 AM CREATININE - [facility] 0.8 06/23/2017 10:20 AM CREATININE - [facility] 0.7 01/22/2016 10:14 AM CREATININE, R URINE 40.3 02/25/2016 04:29 PM CREATININE, RANDOM URINE - [facility] 73 04/12/2021 10:21 AM CREATININE, RANDOM URINE - [facility] 72 04/12/2021 10:21 AM Potassium Results: Lab Results Component Value Date/Time POTASSIUM - [facility] 4.4 11/10/2022 02:07 PM POTASSIUM - [facility] 3.7 11/02/2022 02:13 PM POTASSIUM - [facility] 4.1 08/01/2022 07:51 AM POTASSIUM - [facility] 4.3 03/22/2019 10:26 AM POTASSIUM - [facility] 4.0 06/23/2017 10:20 AM POTASSIUM - [facility] 3.9 01/22/2016 10:14 AM INFORMED CONSENT: Yes PRE-SEDATION ASSESSMENT: Random Kidney Biopsy Level of sedation planned: Moderate Patient's allergies reviewed: Yes H&P Review / Interval Note Documentation: I have reviewed the H&P previously performed, examined the patient today, and there are no new findings. Difficulty with sedation / anesthesia: No Sleep apnea: No History of snoring: No History of difficult intubation: No Decreased ROM neck flexion/extension: No Tracheal deviation: No Decreased ability to open mouth / TMJ: No Loose teeth / dentures / partial: No Congenital deformities / abnormalities: No Dysphagia: No Mallampati Classification: II - soft palate, uvula, fauces visible Chest: Clear Heart: Regular Rhythm Adequate Vascular Access: Yes ASA Risk Stratification (Select One): ASA 2 - Mild systemic disease, no functional limitations The patient was identified and the procedure verified: Yes IMPRESSION/PLAN: 42 y/o F with gross/microscopic hematuria -Plan image guided renal biopsy under moderate sedation Risks of renal biopsy discussed extensively with the patient. Risks are even greater in patients with h/o hypertension, CKD, vasculopathy, use of medications including corticosteroids, immunosuppressants and NSAIDS. Risks include bleeding, pseudoaneurysm or AV fistula formation that may result in page kidney( hematoma compression of the kidney), and potential loss of the biopsied kidney. If bleeding is seen, this may be addressed with percutaneous arteriogram and embolization by the operating interventional radiologist on an emergent basis. There is also the potential that surgery is requiredif bleeding or complications cannot be addressed intravascularly. Other risks include pneumothorax for high renal lesions. Patient understands the risks and potential benefits and is willing to proceed. documented in this encounter Nursing Notes * Ariel Correa RN - 12/22/2022 1:39 PM EDT Pt voided no blood noted * Rocío Almanza RN - 12/22/2022 10:33 AM EDT landscape horticulture instructor note Name: Eve Early Date: 12/22/2022 Procedure: Right Random Renal Biopsy Patient ID band checked using two identifiers. Patient placed on procedure table, prone position, with comfort measures intact and safety strap in place. Hemodynamic monitoring placed and initiated. Patient denies any complaints at current time. RT staff preps for procedure. Reevaluation statement: The patient was reevaluated by Dr. Sohan Zaidi immediately prior to thesedation at 1044 . 10:35 AM Initial manager lab images obtained. Grid placed and scanned. 10:38 AM 1 mg Versed given per order of Dr. Sohan Zaidi. Order was verbalized and verified withsame provider prior to administration. 10:45 AM 1 mg Versed and 50 mcg Fentanyl given per order of Dr. Sohan Zaidi. Order was verbalized and verified with same provider prior to administration. 10:47 AM Timeout performed by Dr. Sohan Zaidi. 10:48 AM Procedure started by Dr. Sohan Zaidi and scrubbed RT Nina. Ultrasound utilized for anatomical analysis of patient and access needle guidance. 1% buffered lidocaine given. Needle being placed. Images obtained. 10:50 AM Needle adjusted. Images obtained. 10:54 AM Needle adjusted. Images obtained. 50 mcg Fentanyl given per order of Dr. Sohan Zaidi. Order was verbalized and verified with same provider prior to administration. 10:55 AM Needle adjusted. Images obtained. 10:56 AM Needle adjusted. Images obtained. 10:57 AM Needle adjusted. Images obtained. 10:58 AM Report given to ABRAHAM Jaimes 10:58 AM Report received from ABRAHAM Park. 11:00 AM Needle adjusted. Images obtained. 11:02 AM Needle adjusted. Images obtained. 11:04 AM Access obtained. Biopsy obtained. Images obtained 11:05 AM Biopsyx2 obtained. 11:06 AM Biopsy obtained. 11:07 AM RT staff departs IR with specimen to surgical pathology. 11:20 AM RT confirms 15 glomeruli. Access removed. Biopsy complete. Final images obtained. 11:21 AM Area cleaned. Gauze and tegaderm dressing applied. Patient tolerated procedure well without complications. All specimens taken by RT staff to surgicalpathology. All wires, catheters, sheaths and other devices have been inspected prior to the procedure for damage. This has been confirmed by the scrubbed RT and the operating physician. All items not intended to remain in the patient have been inspected, accounted for and have been removed from the patient atthe end of the procedure. This has been confirmed by the scrubbed RT and the operating physician. Patient did receive conscious sedation for their procedure, and was sedated from 1045 to 1125. Total medications given Versed: 2 mg Fentanyl: 100 mcg 1% buffered lidocaine: 5 mL Please see doctor's operative note for additional details. * Gretta Centeno RN - 12/22/2022 10:00 AM EDT PRE PROCEDURE SEDATION ASSESSMENT [facility] INTERVENTIONAL RADIOLOGY Eve Early : 1980 Information obtained via phone call? yes Chart review? no Spoke with patient/caregiver(name)? yes: patient IR procedure to be performed: Renal biopsy Patient with recent illness (within 2 weeks): no Sleep apnea? no Uses cpap/bipap? no Home O2 use(LPM)? no Difficulty breathing when lying flat? no Infectious Disease? (MRSA, VRE, CDIFF, TB, Hepatitis, HIV/Aids, COVID-19 other): no History of falls (past 6 months)? no Ambulation aid (walker, cane, crutches, wheelchair)? no History of anesthesia complications (prolonged awakening, PONV, difficult airway)? No Able to fully extend neck, turn head side to side and open mouth? yes If female (11-55) chance of ? No Contrast Dye Allergy? no Allergy prepped ordered ? N/A Review of patient's allergies indicates: Allergen Reactions Ciprofloxacin Buffalo Syrup Soy Allergy Nausea/vomiting Fatigue, Headache Wheat Headache, Fatigue Review of systems Pulmonary complications? (COPD/Emphysema, Asthma, Oxygen use, tobacco history, shortness of breath,PE, Pulm HTN): no Cardiovascular complications? (HTN, Pacemaker/defib, AK, Arrhythmia, CHF, Heart Murmur, Heart surgery): yes: HTN Metabolic/Diabetes history? (Diabetes, steroid use, thyroid disease, obesity): no Hematology/Oncology complications? (Anemia, bleeding/clotting disorder, anticoagulation/coagulopathy, cancer): no Gastrointestinal complications? (Hernia, reflux, ulcers, liver problems, ostomy, IBS, diverticulitis): no Gynecological complications? (Fibroids, PCOS) No Genitourinary complications? (Kidney, bladder, prostate) yes: hematuria Musculoskeletal complications? (Arthritis, contractions, amputations, other bone/joint): no Neuro/Psych complications? (Seizures, stroke, mental handicap, paralysis, neuropathy, depression, anxiety, migraines, substance abuse): yes: ADD * Borsi Rabago RN - 12/22/2022 9:50 AM EDT Patient or the Patients Legally Authorized Business Leader has been advised that (1) the Patient meets criteria for testing and (2) the administration of anesthesia, radiation or other imaging agents may have a harmful impact to an unborn child. The Patient or Patients Representativewere offered the opportunity to ask questions as to necessity of such testing and potential outcomes. Consent for testing has been declined. documented in this encounter Miscellaneous Notes * Progress Notes - Non-Billable - Sohan Zaidi MD - 12/22/2022 11:24 AM EDT PROCEDURE NOTE - Interventional Radiology [facility] [place] [address] Name: Eve Early Location: RADIOLOGY WAITING ROOM/IR Date: 12/22/2022 Time: 11:24 AM PROCEDURE: Right kidney biopsy BATH MIXER: Dr. Sohan Zaidi ASSISTANTS: Jacqueline MENDEZ ANESTHESIA: conscious sedation COMPLICATIONS: none SPECIMEN: tissue to surgical pathology ESTIMATED BLOOD LOSS: negligible FINDINGS: Successful right kidney biopsy documented in this encounter Plan of Treatment Upcoming Encounters Date Type Specialty Care Team Description 03/09/2023 Office Visit Family Medicine Tosha Vaca MD [address] [place] [address] 05/22/2023 Office Visit Nephrology Tay Guerra MD [address] [facility] [place] [id number] Pending Results Name Type Priority Associated Diagnoses Date /Time SURGICAL PATHOLOGY Pathology Routine Hematuria, unspecified type 12/22/2022 11:05 AM EDT Health Maintenance Due Date Last Done Comments [...] 03/22/2019, Additional history exists Mammogram 08/02/2023 08/01/2022, 03/12/2020, 09/29/2016 DTaP,Tdap,and Td Vaccines (2 - Td [...] Not on filedocumented as of this encounter Procedures Procedure Name Priority Date/Time Associated Diagnosis Comments IR BIOPSY Routine 12/22/2022 11:30 AM EDT Essential hypertension with goal blood pressure less than 140/90 Hematuria, microscopic documented in this encounter Visit Diagnoses Diagnosis Hematuria, unspecified type documented in this encounter Administered Medications Inactive Administered Medications - up to 3 most recent administrations Medication Order MAR Action Action Date Dose Rate Site buffered lidocaine 1 % inj Intradermal, ONCE PRN INTRA PROCEDURE, Starting on Sun12/22/22 at 1103, Until Sun12/22/22 at 1103, Intra-Op Given 12/22/2022 11:03 AM EDT 5 mL fentaNYL (PF) inj ONCE PRN INTRA PROCEDURE, Starting on Sun12/22/22 at 1045, Until Sun12/22/22 at 1054, Intra-Op Given 12/22/2022 10:54 AM EDT 50 mcg Given 12/22/2022 10:45 AM EDT 50 mcg midazolam (Versed) 2 MG/2ML inj ONCE PRN INTRA PROCEDURE, Starting on Sun12/22/22 at 1038, Until Sun12/22/22 at 1045, Intra-Op Given 12/22/2022 10:45 AM EDT 1 mg Given 12/22/2022 10:38 AM EDT 1 mg documented in this encounter Active and Recently Administered Medications Times are shown in EDT. PRN Medication Order 12/20/2022 12/21/2022 12/22/2022 buffered lidocaine 1 % inj (COMPLETED) Intradermal, ONCE PRN INTRA PROCEDURE, Starting on Sun12/22/22 at 1103, Until Sun12/22/22 at 1103, Intra-Op 1103 (Given - Provid er: Sohan Zaidi MD - Comment: right flank) fentaNYL (PF) inj (COMPLETED) ONCE PRN INTRA PROCEDURE, Starting on Sun12/22/22 at 1045, Until Sun12/22/22 at 1054, Intra-Op 1045 (Given - Provid er: Vivian Motley RN)1054 (Given - Provider: Vivian Motley, ABRAHAM) midazolam (Versed) 2 MG/2ML inj (COMPLETED) ONCE PRN INTRA PROCEDURE, Starting on Sun12/22/22 at 1038, Until Sun12/22/22 at 1045, Intra-Op 1038 (Given - Provid er: Vivian Motley, ABRAHAM)1045 (Given - Provider: Vivian Motley, RN) documented in this encounter Care Teams Drafter Civil Engineering Relationship Specialty Start Date End Date Tosha Vaca MD [address] [place] [id number] PCP - General Internal Medicine 09/06/22 documented as of this encounter
--- OUTSIDE RECORDS SUMMARY | 2023-04-17 21:26 | External Medical Summary | Summary of Care ---
Author Name Unknown Organization [facility] Address [address] [place] [address] Phone [phone] Care Team Providers Care Aerospace Engineer Name Role Phone Francisco Vaca MD Primary Care Provider Reason for Visit * Reason Onset Date Comments Medication Refill 01/14/2023 Encounter Details Date Type Department Care Team Description 01/14/2023 Refill Family Medicine [facility] [address] [place] [address] Francisco Vaca MD [address] [place] [address] Attention deficit disorder (ADD) without hyperactivity Allergies Active Allergy Reactions Severity Noted Date Comments Ciprofloxacin 10/11/2011 [place] Syrup 04/11/2013 Soy Allergy Nausea/vomiting 09/10/2013 Fatigue, Headache Wheat 09/10/2013 Headache, Fatigue documented as of this encounter (statuses as of 01/15/2023) Medications Medication Sig Dispensed Refills Start Date End Date Status Multi Vitamin Daily Oral Tablet Take by mouth . 0 Active Iron-Vitamin C 65-125 MG Oral Tablet Take 1 Tablet by mouth in the morning. 0 Active [place]-3 1000 MG Oral Capsule Take by mouth . 0 Active Vitamin D (Cholecalciferol) 50 MCG (1999 UT) Oral Capsule Take by mouth . 0 Active Losartan Potassium 50 MG Oral Tablet (Cozaar) TAKE 2 TABLETS BY MOUTH EVERY MORNING 60 Tablet 11 07/11/2022 Active Fluticasone Propionate 50 MCG/ACT Nasal Suspension Administer 1 [place] into nostril in the morning. 0 Active [...] before bedtime. 60 Tablet 0 01/15/2023 Active Amphetamine-Dextroa mphetamine 12.5 MG Oral Tablet (Adderall)Indicatio ns:Attention deficit disorder (ADD) without hyperactivity Take 1 Tablet by mouth in the morning and 1 Tablet before bedtime. 60 Tablet 0 12/11/2022 3 Discontinue d(Refill) documented as of this encounter (statuses as of 01/15/2023) Active Problems Problem Noted Date Raynaud's disease without gangrene 09/06 Flushing 09/06/2022 Left wrist pain 09/06/2020 Attention deficit disorder (ADD) without hyperactivity 06/23/2017 Essential hypertension with goal blood p ressure less than 140/90 01/21/2016 Allergic rhinitis due to pollen 08/11/19 16 Food allergy 08/11/2015 documented as of this encounter (statuses as of 01/15/2023) Resolved Problems Problem Noted Date Resolved Date [...] as of this encounter (statuses as of 01/15/2023) Immunizations Name Administration Dates Next Due PPD [...] Telephone Encounter - Francisco Vaca MD - 01/15/2023 1:26 PM EDT Signed Prescriptions: Disp Refills Amphetamine-Dextroamphetamine 12.5 MG Oral*60 Tab*0 Sig: Take 1 Tablet by mouth in the morning and 1 Tablet before bedtime.Authorizing Provider: FRANCISCO VACA ICK * Telephone Encounter - Francisco Vaca MD - 01/15/2023 1:24 PM EDT I have reviewed the patient's controlled substance dispensing history in the Prescription Drug Monitoring Program in compliance with the [facility] regulations before prescribing a controlled substance. * Telephone Encounter - Venita Arechiga LPN - 01/15/2023 10:20 AM EDTPending Prescriptions: Disp Refills Amphetamine-Dextroamphetamine 12.5 MG Oral*60 Tab*0 Sig: Take 1 Tablet by mouth in the morning and 1 Tablet before bedtime. * Telephone Encounter - Veniat Arechiga LPN - 01/15/2023 10:16 AM EDT Did you pend patient's preferred pharmacy and medication before forwarding?yes Pharmacy: [id number] - [place] Pending Prescriptions: Disp Refills Amphetamine-Dextroamphetamine 12.5 MG [...] appointment Last date the medication was ordered: 12/11/2022 Is this request for a controlled substance?Yes, What was the last refill date 12/11/2022 w/ [id number] and dosage 12.5 mg and Urine Drug Screen Not completed Urine Drug Screen:No results found for [...] Team Description 03/09/2023 Office Visit Family Medicine Francisco Vaca MD [address] [place] [address] 05/22/2023 Office Visit Nephrology Tay Guerra MD [address] [place] [address] Health Maintenance Due Date [...] hyperactivity documented in this encounter Care Teams Aerospace Engineer Relationship Specialty Start Date End Date Francisco Vaca MD [address] [place] [address] PCP - General Internal Medicine 09/06/22 documented as of this encounter
--- OUTSIDE RECORDS SUMMARY | 2023-04-17 21:26 | External Medical Summary | Summary of Care ---
Author Name Unknown Organization [facility] Address [address] [place] [address] Phone [phone] Care Team Providers Care Drill Press Set Up Operator Name Role Phone Tosha Vaca MD Primary Care Provider Reason for Visit * Reason Comments Outpatient Testing Encounter Details Date Type Department Care Team Description 12/22/2022 Laboratory Outpatient Laboratory, [place] [address] [place] [address] [place], Lab [address] [place] [address] Encounter for general adult medical examination w/o abnormal findings Allergies Active Allergy Reactions Severity Noted Date Comments Ciprofloxacin 10/11/2011 [place] Syrup 04/11/2013 Soy Allergy Nausea/vomiting 09/10/2013 Fatigue, Headache Wheat 09/10/2013 Headache, Fatigue documented as of this encounter (statuses as of 12/22/2022) Medications Medication Sig Dispensed Refills Start Date End Date Status Multi Vitamin Daily Oral Tablet Take by mouth . 0 Suspende d Iron-Vitamin C 65-125 MG Oral Tablet Take 1 Tablet by mouth in the morning. 0 Suspended [place]-3 1000 MG Oral Capsule Take by mouth . 0 Suspend ed Vitamin D (Cholecalciferol) 50 MCG (1999 UT) Oral Capsule Take by mouth . 0 Suspend ed Losartan Potassium 50 MG Oral Tablet (Cozaar) TAKE 2 TABLETS BY MOUTH EVERY MORNING 60 Tablet 11 07/11/2022 Suspended Additional Information Fluticasone Propionate 50 MCG/ACT Nasal Suspension Administer 1 [place] into nostril in the morning. 0 Suspended Propranolol HCl 10 MG Oral Tablet (Inderal)Indication s:Flushing Take 1 Tablet by mouth 4 times a day as needed for Anxiety or Other (flushing). 30 Tablet 5 09/17/2022 Suspended Additional Information Methylphenidate HCl ER (CD) 30 MG Oral Capsule Extended ReleaseIndications: Attention deficit disorder (ADD) without hyperactivity Take 1 Capsule by mouth in the morning. 30 Capsule 0 10/23/2022 Suspended Additional Information Patient not taking.Reported on 11/16/2022 Indapamide 1.25 MG Oral Tablet TAKE 1 TABLET BY MOUTH EVERY MORNING 30 Tablet 3 10/27/2022 Suspended Additional Information Patient not taking.Reported on 11/16/2022 Amphetamine-Dextroa mphetamine 12.5 MG Oral Tablet (Adderall)Indicatio ns:Attention deficit disorder (ADD) without hyperactivity Take 1 Tablet by mouth in the morning and 1 Tablet before bedtime. 60 Tablet 0 12/11/2022 Suspended Additional Information documented as of this encounter (statuses as of 12/22/2022) Active Problems Problem Noted Date Raynaud's disease without gangrene 09/06 Flushing 09/06/2022 Left wrist pain 09/06/2020 Attention deficit disorder (ADD) without hyperactivity 06/23/2017 Essential hypertension with goal blood p ressure less than 140/90 01/21/2016 Allergic rhinitis due to pollen 08/11/19 16 Food allergy 08/11/2015 documented as of this encounter (statuses as of 12/22/2022) Resolved Problems Problem Noted Date Resolved Date [...] as of this encounter (statuses as of 12/22/2022) Immunizations Name Administration Dates Next Due PPD [...] Encounters Date Type Specialty Care Team Description 12/22/2022 Hospital Encounter Interventional [facility] Milad [place] [facility] [address] [facility] [address] Arrived 03/09/2023 Office Visit Family Medicine Tosha Vaca MD [address] [place] [address] 05/22/2023 [facility] Visit [facility] [address] [facility] [place] [address] Pending Results Name Type Priority Associated Diagnoses Date /Time PT INR Lab STAT Encounter for general adult medical examination w/o abnormal findings 12/22/2022 8:46 AM EDT Health Maintenance Due Date Last [...] as of this encounter Visit Diagnoses Diagnosis Encounter for general adult medical examination w/o abnormal findings Unspecified general medical examination documented in this encounter Care Teams Drill Press Set Up Operator Relationship Specialty Start Date End Date Tosha Vaca MD [address] [facility] [place] [address] PCP - General Internal Medicine 09/06/22 documented as of this encounter
--- OUTSIDE RECORDS SUMMARY | 2023-04-17 21:26 | External Medical Summary | Summary of Care ---
Author Name Unknown Organization [facility] Address [address] [place] [address] Phone [phone] Care Team Providers Care Histology Tech Name Role Phone Tosha Vaca MD Primary Care Provider Reason for Visit * Reason Onset Date Comments Follow Up Doing well, no c oncerns Medication Administration 03/09/2023 Flu an d/or Pneumo Inj Encounter Details Date Type Department Care Team (Late st Contact Info) Description 03/09/2023 9:00 AM EST Office Visit Family Practice [facility] [address] [place] [address] Tosha Vaca MD [address] [place] [address] Well adult exam*; Need for prophylactic vaccination and inoculation against influenza; IgA nephropathy Allergies Active Allergy Reactions Criticality Noted Date Comments Ciprofloxacin 10/11/2011 [place] Syrup 04/11/2013 Soy Allergy Nausea/vomiting 09/10/2013 Fatigue, Headache Wheat 09/10/2013 Headache, Fatigue documented as of this encounter (statuses as of 03/10/2023) Medications Medication Sig Dispensed Refills Start Date End Date Status Multi Vitamin Daily Oral Tablet Take by mouth . 0 Active Iron-Vitamin C 65-125 MG Oral Tablet Take 1 Tablet by mouth in the morning. 0 Active [place]-3 1000 MG Oral Capsule Take by mouth . 0 Active Vitamin D (Cholecalciferol) 50 MCG (2000 UT) Oral Capsule Take by mouth . 0 Active Losartan Potassium 50 MG Oral Tablet (Cozaar) TAKE 2 TABLETS BY MOUTH EVERY MORNING 60 Tablet 11 07/11/2022 Active Fluticasone Propionate 50 MCG/ACT Nasal Suspension Administer 1 [place] into nostril in the morning. 0 Active [...] a day. 60 Tablet 0 03/05/2023 Active Methylphenidate HCl ER (CD) 30 MG Oral Capsule Extended ReleaseIndications: Attention deficit disorder (ADD) without hyperactivity Take 1 Capsule by mouth in the morning. 30 Capsule 0 10/23/2022 3 Discontinue d(Medicatio n List Clean Up) documented as of this encounter (statuses as of 03/10/2023) Active Problems Problem Noted Date Diagnosed Date Gross hematuria 03/09/2023 IgA nephropathy 03/09/2023 Raynaud's disease without gangrene 09/06/2022 Flushing 09/06/2022 Left wrist pain 09/06/2020 Attention deficit disorder (ADD) without hyperac tivity 06/23/2017 Essential hypertension with goal blood pressure less than 140/90 01/21/2016 Allergic rhinitis due to pollen 08/11/2015 Food allergy 08/11/2015 documented as of this encounter (statuses as of 03/10/2023) Resolved Problems Problem Noted Date Diagnosed Date [...] as of this encounter (statuses as of 03/10/2023) Immunizations Name Administration Dates Next Due PPD 08/15/2021 Rubella Vaccine 11/30/2013 SEASONAL INFLUENZA, PF, 6 M & Above, IM , (FLULAVAL or FLUZONE) 03/09/2023,01/10/2020,03/22/2019, 0 18,06/23/2017 Seasonal Influenza, Quadriva lent, [...] Sign Reading Time Taken Comments Blood Pressure 114/78 03/09/2023 9:04 AM EST Pulse 84 03/09/2023 9:04 AM EST Temperature 37.1 C (98.7 F) 03/09/2023 9:04 AM ES T Respiratory Rate 16 03/09/2023 9:04 AM EST Oxygen Saturation 98% 03/09/2023 9:04 AM EST Inhaled Oxygen Concentration - - Weight 77.6 kg (171 lb) 03/09/2023 9:04 AM EST Height 167.6 cm (5' 6") 03/09/2023 9:04 AM EST Body Mass Index 27.6 03/09/2023 9:04 AM EST documented in this encounter Progress Notes * Tosha Vaca MD - 03/09/2023 9:19 AM EST Images from the original note were not included. History of Present Illness Eve Early is a 42 year old female that presents for Follow Up (Doing well, no concerns) and Medication Administration (Flu and/or Pneumo Inj) Hypertension - amlodipine 10, losartan 50 Raynauds - improved with amlodipine Flushing - propranolol as needed ADD - Adderall 12.5 twice a day Hospitalized for anaplasmosis in October, hematuria noted. Saw nephrology in October. Renal biopsy confirmed IgA Nephropathy. Indapamide discontinued due to hyponatremia. Taking mini-walks throughout the day to manage stress. Plans to continue through the winter. Sleep: good quality, not enough quantity. Nicotine: none Cannabis: none Alcohol: 2-3 drinks/wk Exercise: off/on with Mom being sick. Eating: daily veggies (CSA over summer). Daily yogurt. Mammogram normal 07/2022 medication and allergy list reviewed Past medical history and problem list reviewed Physical Exam Vitals: 03/09/23 0904 Temp: 37.1 C (98.7 F) Pulse: 84 Resp: 16 SpO2: 98% BP: 114/78 BMI: 27.61 BP Readings from Last 3 Encounters: 03/09/23 114/78 12/22/22 109/62 11/16/22 119/84 Wt Readings from Last 3 Encounters: 03/09/23 77.6 kg (171 lb) 11/16/22 75.9 kg (167 lb 6.4 oz) 11/10/22 76.7 kg (169 lb) Physical Exam Vitals and nursing note reviewed. Constitutional: General: She is not in acute distress. Appearance: Normal appearance. She is not ill-appearing. HENT: Head: Normocephalic and atraumatic. Eyes: Pupils: Pupils are equal, round, and reactive to light. Neck: Thyroid: No thyroid mass, thyromegaly or thyroid tenderness. Cardiovascular: Rate and Rhythm: Normal rate and regular rhythm. Heart sounds: No murmur heard. Pulmonary: Effort: Pulmonary effort is normal. Breath sounds: Normal breath sounds. Musculoskeletal: Right lower leg: No edema. Left lower leg: No edema. Lymphadenopathy: Cervical: No cervical adenopathy. Skin: General: Skin is warm and dry. Neurological: Mental Status: She is alert. I have reviewed the following results: CMP, Lipid Panel, Hemoglobin A1C, TSH, and CBC Assessment and Plan Well adult exam Age appropriate preventative measures addressed. Healthy diet and physical movement addressed. HTN, raynauds, flushing well controlled. Need for prophylactic vaccination and inoculation against influenza - INFLUENZA VACC, QUAD, PF, 6 MONTHS & UP, 0.5 ML, IM IgA nephropathy Per nephrology Wrap-Up Follow Up: Return in about 1 year (around 03/09/2024) for Return with Lio. | For: Return with Lio Time: I spent a total of 20-29 minutes (exact time 20 mins) on the date of service in preparation, delivery, and documentation of the care provided to Eve Early excluding any time spent in the performance of separately billed services. * Adeola Pace MED ASSIST - 03/09/2023 8:58 AM EST PRE - ADMINISTRATION DOCUMENTATION Are you experiencing any cold symptoms or fever? No Have you had Guillain-[place] Syndrome (an illness that causes paralysis) within the last 6 weeks? No Have you had the flu shot in the past? YES Have you ever had a reaction to the flu shot? No NISREEN Gómez, 03/09/2023 8:58 AM Immunization Administration Documentation Time Out Procedure Performed: Yes Patient Identified (Ask Name/Date of ): Yes Does the patient have a fever greater than 101 degrees today? No Patient allergic to latex? No VFC Stock: No Immunization(s) verified: Yes, Immunization Name: Flu, VIS Sheet(s) given: Yes Verified Side and Site: Yes Verified Shot(s) with Parent(s)/Patient: Yes documented in this encounter Plan of Treatment Upcoming Encounters Date Type Department Care Team (Late st Contact Info) Description 05/23/2023 3:00 PM EST Office Visit Nephrology, [address] [address] Tay Guerra MD [address] [place] [address] 12/21/2023 4:30 PM EDT Office Visit Gynecology/Obstetrics [address] [address] Silva Porras PA-C [address] [place] [address] 03/10/2024 10:40 AM EST Office Visit Family Practice [facility] [address] [place] [address] Tosha Vaca MD [address] [place] [address] Health Maintenance Due Date Last Done Comments Hepatitis B (1 of 3 - 3-dose series) 1980 HIV Screening 07/08/1995 Hepatitis C Screening 1998 HPV/Co-Test 2010 Cervical Cancer Screening 06/11/2022 Pap Smear 06/11/2022 06/11/2019, 08/28, 09/15/2016, Additional history exists COVID-19 Vaccine ( season) 2022 07/19/2020, 06/28/2020 Mammogram 08/02/2023 08/01/2022, 03/2 12/2020, 09/29/2016 DTaP,Tdap,and Td Vaccines (2 - Td [...] as of this encounter Visit Diagnoses Diagnosis Well adult exam- Primary Routine general medical examination at a health care facility Need for prophylactic vaccination and inoculation against influenza IgA nephropathy Nephritis and nephropathy, not specified as acute or chronic, with unspecified pathological lesion in kidney documented in this encounter Care Teams Histology Tech Relationship Specialty Start Date End Date Tosha Vaca MD [address] [place] [address] PCP - General Internal Medicine 09/06/22 documented as of this encounter
--- OUTSIDE RECORDS SUMMARY | 2023-04-17 21:26 | External Medical Summary | Summary of Care ---
Author Name Unknown Organization [facility] Address [address] [place] [address] Phone [phone] Care Team Providers Care Pulpwood Buyer Name Role Phone Francisco Vaca MD Primary Care Provider Reason for Visit * Reason Onset Date Comments Medication Refill 04/11/2023 Encounter Details Date Type Department Care Team (Late st Contact Info) Description 04/11/2023 Refill Family Practice [facility] [address] [place] [address] Francisco Vaca MD [address] [place] [address] Attention deficit disorder (ADD) without hyperactivity Allergies Active Allergy Reactions Criticality Noted Date Comments Ciprofloxacin 10/11/2011 [place] Syrup 04/11/2013 Soy Allergy Nausea/vomiting 09/10/2013 Fatigue, Headache Wheat 09/10/2013 Headache, Fatigue documented as of this encounter (statuses as of 04/11/2023) Medications Medication Sig Dispensed Refills Start Date End Date Status Multi Vitamin Daily Oral Tablet Take by mouth . 0 Active Iron-Vitamin C 65-125 MG Oral Tablet Take 1 Tablet by mouth in the morning. 0 Active [place]-3 1000 MG Oral Capsule Take by mouth . 0 Active Vitamin D (Cholecalciferol) 50 MCG (1999 UT) Oral Capsule Take by mouth . 0 Active Losartan Potassium 50 MG Oral Tablet (Cozaar) TAKE 2 TABLETS BY MOUTH EVERY MORNING 60 Tablet 11 07/11/2022 Active Fluticasone Propionate 50 MCG/ACT Nasal Suspension Administer 1 [place] into nostril in the morning. 0 Active Propranolol HCl 10 MG Oral Tablet (Inderal)Indication s:Flushing Take 1 Tablet by mouth 4 times a day as needed for Anxiety or Other (flushing). 30 Tablet 5 09/17/2022 Active amLODIPine Besylate 10 MG Oral Tablet (Norvasc) Take 1 Tablet by mouth in the morning. 30 Tablet 3 04/09/2023 Active Amphetamine-Dextroa mphetamine 12.5 MG Oral Tablet (Adderall)Indicatio ns:Attention deficit disorder (ADD) without hyperactivity Take 1 Tablet by mouth 2 times a day. 60 Tablet 0 04/11/2023 Active Amphetamine-Dextroa mphetamine 12.5 MG Oral Tablet (Adderall)Indicatio ns:Attention deficit disorder (ADD) without hyperactivity Take 1 Tablet by mouth 2 times a day. 60 Tablet 0 03/05/2023 3 Discontinue d(Refill) documented as of this encounter (statuses as of 04/11/2023) Active Problems Problem Noted Date Diagnosed Date Gross hematuria 03/09/2023 IgA nephropathy 03/09/2023 Raynaud's disease without gangrene 09/06/2022 Flushing 09/06/2022 Left wrist pain 09/06/2020 Attention deficit disorder (ADD) without hyperac tivity 06/23/2017 Essential hypertension with goal blood pressure less than 140/90 01/21/2016 Allergic rhinitis due to pollen 08/11/2015 Food allergy 08/11/2015 documented as of this encounter (statuses as of 04/11/2023) Resolved Problems Problem Noted Date Diagnosed Date [...] as of this encounter (statuses as of 04/11/2023) Immunizations Name Administration Dates Next Due PPD [...] Telephone Encounter - Francisco Vaca MD - 04/11/2023 9:08 PM EST Signed Prescriptions: Disp Refills Amphetamine-Dextroamphetamine 12.5 MG Oral*60 Tab*0 Sig: Take 1 Tablet by mouth 2 times a day.Authorizing Provider: FRANCISCO VACA * Telephone Encounter - Francisco Vaca MD - 04/11/2023 9:07 PM EST I have reviewed the patient's controlled substance dispensing history in the Prescription Drug Monitoring Program in compliance with the [facility] regulations before prescribing a controlled substance. * Telephone Encounter - Sydni Abreu [facility] - 04/11/2023 1:45 PM EST Pending Prescriptions: Disp Refills Amphetamine-Dextroamphetamine 12.5 MG Oral*60 Tab*0 Sig: Take 1 Tablet by mouth 2 times a day. * Telephone Encounter - Sydni Abreu [facility] - 04/11/2023 1:44 PM EST I have reviewed the patients controlled substance dispensing history in the Prescription Drug Monitoring Program in compliance with the [facility] regulations before prescribing a controlled substance. PDMP checked on 04/11/2023. Pending Prescriptions: Disp Refills Amphetamine-Dextroamphetamine 12.5 MG [place]*60 Tab*0 Sig: Take 1 Tablet by mouth 2 times a day. Last Visit: 03/09/2023 (in office), Visit date not found (telemedicine) Next Visit: 03/10/2024 Date medication was last filled: 03/05 Date medication is due for refill: 04/03 Pharmacy: [id number] [place] Is this request for a controlled substance? Yes and Urine Drug Screen Not completed Toxicology results: No results found for this or any previous visit. Please approve if appropriate. Sydni Navarro PharmD Clinical Pharmacist [facility] ([facility] (formerly [facility]pharm[facility]) [phone] 04/11/2023,1:45 PM documented in this encounter Plan of Treatment Upcoming Encounters Date Type Department Care Team (Late st Contact Info) Description 05/23/2023 3:00 PM EST Office Visit Nephrology, [address] [address] Tay Guerra MD [address] [place] [address] 12/21/2023 4:30 PM EDT Office Visit Gynecology/Obstetrics [address] [address] Silva Porras PA-C [address] [place] [address] 03/10/2024 10:40 AM EST Office Visit Family Practice [facility] [address] [place] [address] Francisco Vaca MD [address] [place] [address] Health Maintenance Due Date Last Done Comments [...] hyperactivity documented in this encounter Care Teams Pulpwood Buyer Relationship Specialty Start Date End Date Francisco Vaca MD [address] [place] [address] PCP - General Internal Medicine 09/06/22 documented as of this encounter
--- OUTSIDE RECORDS SUMMARY | 2023-04-17 21:26 | External Medical Summary | Summary of Care ---
Author Name Unknown Organization [facility] Address [address] [place] [address] Phone [phone] Care Team Providers Care Coordinator Of Rehabilitation Services Name Role Phone Tosha Vaca MD Primary Care Provider Encounter Details Date Type Department Care Team Description 12/26/2022 Orders Only Nephrology, [address] [address] Tay Guerra MD [address] [place] [id number] Allergies Active Allergy Reactions Severity Noted Date Comments Ciprofloxacin 10/11/2011 [place] Syrup 04/11/2013 Soy Allergy Nausea/vomiting 09/10/2013 Fatigue, Headache Wheat 09/10/2013 Headache, Fatigue documented as of this encounter (statuses as of 12/26/2022) Medications Medication Sig Dispensed Refills Start Date End Date Status Multi Vitamin Daily Oral Tablet Take by mouth . 0 Active Iron-Vitamin C 65-125 MG Oral Tablet Take 1 Tablet by mouth in the morning. 0 Active [place]-3 1000 MG Oral Capsule Take by mouth . 0 Active Vitamin D (Cholecalciferol) 50 MCG (2000 UT) Oral Capsule Take by mouth . 0 Active Losartan Potassium 50 MG Oral Tablet (Cozaar) TAKE 2 TABLETS BY MOUTH EVERY MORNING 60 Tablet 11 07/11/2022 Active Fluticasone Propionate 50 MCG/ACT Nasal Suspension Administer 1 [place] into nostril in the morning. 0 Active [...] as of this encounter (statuses as of 12/26/2022) Active Problems Problem Noted Date Raynaud's disease without gangrene 09/06 Flushing 09/06/2022 Left wrist pain 09/06/2020 Attention deficit disorder (ADD) without hyperactivity 06/23/2017 Essential hypertension with goal blood p ressure less than 140/90 01/21/2016 Allergic rhinitis due to pollen 08/11/19 16 Food allergy 08/11/2015 documented as of this encounter (statuses as of 12/26/2022) Resolved Problems Problem Noted Date Resolved Date [...] as of this encounter (statuses as of 12/26/2022) Immunizations Name Administration Dates Next Due PPD [...] Office Visit Nephrology Tay Guerra MD [address] [place] [address] Health Maintenance Due Date [...] or Tdap) 09/11/2023 09/10/2013 GFR 11/11/2023 11/10/2022, 0709/2022, 08/01/2022, Additional history exists Albumin/Creatinine Ratio 04/12/2024 [...] filedocumented as of this encounter Care Teams Coordinator Of Rehabilitation Services Relationship Specialty Start Date End Date Tosha Vaca MD [address] [place] [address] PCP - General Internal Medicine 09/06/22 documented as of this encounter
--- OUTSIDE RECORDS SUMMARY | 2023-04-17 21:27 | External Medical Summary | Summary of Care ---
Author Name Unknown Organization [facility] Address [address] [place] [address] Phone [phone] Care Team Providers Care Vinyl Top Installer Name Role Phone Tosha Vaca MD Primary Care Provider Reason for Visit * Reason Comments Follow Up Encounter Details Date Type Department Care Team Description 11/16/2022 Office Visit Nephrology, [address] [address] Emmy Crews MD [address] [place] [id number] Essential hypertension with goal blood pressure less than 140/90*; HTN, goal below 130/80; Hematuria, microscopic Allergies Active Allergy Reactions Severity Noted Date Comments Ciprofloxacin 10/11/2011 [place] Syrup 04/11/2013 Soy Allergy Nausea/vomiting 09/10/2013 Fatigue, Headache Wheat 09/10/2013 Headache, Fatigue documented as of this encounter (statuses as of 11/16/2022) Medications Medication Sig Dispensed Refills Start Date End Date Status Multi Vitamin Daily Oral Tablet Take by mouth . 0 Active Iron-Vitamin C 65-125 MG Oral Tablet Take 1 Tablet by mouth in the morning. 0 Active Baldwin-3 1000 MG Oral Capsule Take by mouth . 0 Active Vitamin D (Cholecalciferol) 50 MCG (1999 UT) Oral Capsule Take by mouth . 0 Active Losartan Potassium 50 MG Oral Tablet (Cozaar) TAKE 2 TABLETS BY MOUTH EVERY MORNING 60 Tablet 11 07/11/2022 Active Fluticasone Propionate 50 MCG/ACT Nasal Suspension Administer 1 Roscoe into nostril in the morning. 0 Active Propranolol HCl 10 MG Oral Tablet (Inderal)Indications :Flushing Take 1 Tablet by mouth 4 times a day as needed for Anxiety or Other (flushing). 30 Tablet 5 09/17/2022 Active Amphetamine-Dextroam phetamine 12.5 MG Oral Tablet (Adderall)Indication s:Attention deficit disorder (ADD) without hyperactivity Take 1 Tablet by mouth in the morning and 1 Tablet before bedtime. 60 Tablet 0 10/09/2022 Active Methylphenidate HCl ER (CD) 30 MG Oral Capsule Extended ReleaseIndications:A ttention deficit disorder (ADD) without hyperactivity Take 1 Capsule by mouth in the morning. 30 Capsule 0 10/23/2022 Active Additional Information Patient not taking.Reported on 11/16/2022 Indapamide 1.25 MG Oral Tablet TAKE 1 TABLET BY MOUTH EVERY MORNING 30 Tablet 3 10/27/2022 Active Additional Information Patient not taking.Reported on 11/16/2022 documented as of this encounter (statuses as of 11/16/2022) Active Problems Problem Noted Date Raynaud's disease without gangrene 09/06 Flushing 09/06/2022 Left wrist pain 09/06/2020 Attention deficit disorder (ADD) without hyperactivity 06/23/2017 Essential hypertension with goal blood p ressure less than 140/90 01/21/2016 Allergic rhinitis due to pollen 08/11/19 16 Food allergy 08/11/2015 documented as of this encounter (statuses as of 11/16/2022) Resolved Problems Problem Noted Date Resolved Date [...] as of this encounter (statuses as of 11/16/2022) Immunizations Name Administration Dates Next Due PPD 08/15/2021 Rubella Vaccine 11/30/2013 Seasonal Influenza, Quadriva lent, No Preserve, 6 Mons & Above, IM 01/10/2020,03/22/2019,01/09/2018, 0 18 Seasonal Influenza, Quadriva lent, [...] Sign Reading Time Taken Comments Blood Pressure 119/84 11/16/2022 11:19 AM EDT Pulse 86 11/16/2022 11:19 AM EDT Temperature - - Respiratory Rate - - Oxygen Saturation - - Inhaled Oxygen Concentration - - Weight 75.9 kg (167 lb 6.4 oz) 11/16/2022 11:19 AM EDT Height - - Body Mass Index 27.02 07/24/2022 2:00 PM EDT documented in this encounter Progress Notes * Emmy Crews MD - 11/16/2022 11:38 AM EDT Eve Early is a 42 year old female. Chief Complaint Patient presents with Follow Up HPI:42-year-old,with past medical history of hypertension, ADD,and allergic rhinitis.She was referred by primary care for hematuria follow-up. Interestingly she has got quite extensive history ofgrossand microscopic hematuria since 2010.She was in [place] at that time and was admitted with gross hematuria which was attributed to acutepyelonephritis.She had IV pyelogram done which showed right hydronephrosis and hydroureter witha PUJobstruction.She also has cystoscopy on that occasion which was grossly "normal".She was followed up with Urology there anddefinite cause for hematuria was found,no intervention done. After that episode she tells me that she had multiple episodes ofgross/microscopic hematuria,interestingly she gets this episode whenever she has fever,and feels unwell.She tells me that she was treated for 1 definite case of UTI during all these episodes. Interestinglyubaldo had presented with some unusual rheumatological complaints 2000 and subsequentlywent for blood work which was remarkably positive for ASO(781)although all other labs way normal(rheumatoid factor,SAM) [place] [facility]She tells me that she had a nuclear scan done but cannot remember what the results were.She was recently reviewed again in July and had a CT scan done which did not show any hydronephrosis or hydroureter,with no suspicious filling defects and no ureteral calculi,however it did show a partial desiccation of the right mid to distal ureter. Cystoscopy was normal. She also reported ofhematuricepisodes after COVID vaccination(both doses). She denies renal problem,denies passing kidney stones in the past,repeated UTI.She occasionally takes NSAIDs but no other OTC.There is no family history of renal issues or renal stones. Since last visit-07/20-,Tx for Anaplasmosis.Indapmide was held.2/ hyponatremia. Weight has been steady.Compliant with medication.No pedal edema.No shortness of breath,no chest pain,nomacroscopichematuria PMH: Patient Active Problem List Diagnosis Code Allergic rhinitis due to pollen J30.1 Food allergy Z91.018 Essential hypertension with goal blood pressure less than 140/90 I10 Attention deficit disorder (ADD) without hyperactivity F98.8 Left wrist pain M25.532 Raynaud's disease without gangrene I73.00 Flushing R23.2 Current Outpatient Medications Medication Sig Dispense Refill Multi Vitamin Daily Oral Tablet Take by mouth . Iron-Vitamin C 65-125 MG Oral Tablet Take 1 Tablet by mouth in the morning. Baldwin-3 1000 MG Oral Capsule Take by mouth . Vitamin D (Cholecalciferol) 50 MCG (2000 UT) Oral Capsule Take by mouth . Losartan Potassium 50 MG Oral Tablet (Cozaar) TAKE 2 TABLETS BY MOUTH EVERY MORNING 60 Tablet 11 Fluticasone Propionate 50 MCG/ACT Nasal Suspension Administer 1 Roscoe into nostril in the morning. Propranolol HCl 10 MG Oral Tablet (Inderal) Take 1 Tablet by mouth 4 times a day as needed for Anxiety or Other (flushing). 30 Tablet 5 Amphetamine-Dextroamphetamine 12.5 MG Oral Tablet (Adderall) Take 1 Tablet by mouth in the morning and 1 Tablet before bedtime. 60 Tablet 0 Methylphenidate HCl ER (CD) 30 MG Oral Capsule Extended Release Take 1 Capsule by mouth in the morning. (Patient not taking: Reported on 11/16/2022) 30 Capsule 0 Indapamide 1.25 MG Oral Tablet TAKE 1 TABLET BY MOUTH EVERY MORNING (Patient not taking: Reported on 11/16/2022) 30 Tablet 3 No current facility-administered medications for this visit. Past Medical History: Diagnosis Date Attention deficit disorder (ADD) without hyperactivity 06/23/2017 Essential hypertension with goal blood pressure less than 140/90 01/21/2016 Food allergy 08/11/2015 NO KNOWN PROBLEMS Past Surgical History: Procedure Laterality Date DENTAL SURGERY PROCEDURE NEC Review of patient's allergies indicates: Allergen Reactions Ciprofloxacin [place] Syrup Soy Allergy Nausea/vomiting Fatigue, Headache Wheat Headache, Fatigue Family History Problem Relation Age of Onset No Past Hx None Cancer Grandmother (Maternal) leukemia Cancer Grandfather (Maternal) prostate ca Cancer Grandfather (Paternal) lung ca Diabetes Aunt (Unspecified) Type 2 Hypertension Mother Allergies Mother Obesity Mother Hypertension Father Allergies Father Asthma Father Stroke Grandmother (Paternal) Breast Cancer Aunt (Maternal) Family Status Relation Status NONE (Not Specified) MGMA (Not Specified) MGFA (Not Specified) PGFA (Not Specified) AUNT (Not Specified) Mo (Not Specified) Fa (Not Specified) PGMA (Not Specified) MAUNT (Not Specified) Social History Socioeconomic History Marital status: Spouse name: Not on file Number of children: 1 Years of education: Not on file Highest education level: Not on file Occupational History Occupation: [employer] Tobacco Use Smoking status: Former Types: Cigarettes Quit date: 09/10/2002 Years since quittin.1 Smokeless tobacco: Never Substance and Sexual Activity Alcohol use: Yes Alcohol/week: 3.0 standard drinks Types: 3 12 oz of beer per week Drug use: No Sexual activity: Yes Partners: Male control/protection: Surgical Comment: vasectomy Other Topics Concern Not on file Social History 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 Garcia and Timothy Polanco Son is 3 05/01 Social Determinants of Health Financial Resource Strain: Not on file Food Insecurity: Not on file Transportation Needs: Not on file Physical Activity: Not on file Stress: Not on file Social Connections: Not on file Intimate Partner Violence: Not on file Housing Stability: Not on file Latest Ref Rng 06/23/2017 03/22/2019 2019 07/26/2020 NEPH-FLOW Bun 6 - 20 mg/dL 18 20 17 Cr 0.5 - 1.0 mg/dL 0.8 0.8 0.9 eGFR >=60 mL/min 80.2 eGFR >60 >60.0 >60.0 K 3.5 - 5.1 mmol/L 4.0 4.3 4.1 Hb 12.0 - 15.3 g/dL 12.9 13.6 Pro/Cr ratio <150 mg/g Latest Ref Rng 04/12/2021 08/05/2021 07/11/2022 08/01/2022 11/02/2022 NEPH-FLOW Bun 6 - 20 mg/dL 19 15 18 14 Cr 0.5 - 1.0 mg/dL 0.7 0.9 0.8 1.0 eGFR >=60 mL/min >90 82 >90 77 eGFR >60 K 3.5 - 5.1 mmol/L 4.3 4.1 4.1 3.7 Hb 12.0 - 15.3 g/dL 13.5 13.2 Pro/Cr ratio <150 mg/g 69 Latest Ref Rng 11/10/2022 11/16/2022 NEPH-FLOW Bun 6 - 20 mg/dL 21 (H) Cr 0.5 - 1.0 mg/dL 0.9 eGFR >=60 mL/min 84 eGFR >60 K 3.5 - 5.1 mmol/L 4.4 Hb 12.0 - 15.3 g/dL 11.8 (L) 10.7 (L) Pro/Cr ratio <150 mg/g Constitutional- Well , no complains Eyes:(-) negative, no pain, blurred vision, or redness ENT:(-) negative: no headaches, vertigo, hearing loss, sinus, ear, or throat problems Cardiovascular:(-) negative: no chest pain, dyspnea, syncope, or palpitations Pulmonary :(-) negative: no cough, wheezing, or shortness of breath Abdominal/GI:(-) negative: no pain, heartburn, dysphagia, bleeding, change in bowel habits, nausea or vomiting Extremities, no edema Skin - warm , no rashes Psy - Normal mood and affect Objective: BP 119/84 | Pulse 86 | Wt 75.9 kg (167 lb 6.4 oz) | BMI 27.02 kg/m | BSA 1.88 m Physical Exam--General: Alert and no distress Head: No masses, lesions, tenderness or abnormalities Nose: no mucosal erythema, no mucosal edema Oropharynx: mucous membranes are moist Neck: supple, no JVD Heart: regular rate & rhythm, no murmurs and no gallops Lungs: normal respiratory rate and rhythm, lungs clear to auscultation Abdomen: abdomen soft, non-tender Back: No CVA tenderness Extremities: No edema BP Readings from Last 5 Encounters: 11/16/22 119/84 11/10/22 120/88 11/01/22 116/80 09/06/22 132/76 07/24/22 158/96 Wt Readings from Last 5 Encounters: 11/16/22 75.9 kg (167 lb 6.4 oz) 11/10/22 76.7 kg (169 lb) 09/06/22 75.8 kg (167 lb) 07/24/22 77 kg (169 lb 12.8 oz) 07/11/22 75.8 kg (167 lb 3.2 oz) ASSESSMENT: Hematuria/normal renal function. Looking at her history she may have IgA nephropathy,/thin membrane disease. UA-positive for Rbc's,which has been on and off. PCR-ACR-wnl SAM,Anca, Dsdna,rheumatoid factor,anti GBM-all negative Renal ultrasound-normal size kidneys without medical disease,no stones or obstruction She needs renal biopsy,whichshe will decide after consulting friends and relatives She will also consider genetic testing. Blood pressure-Is low-- Target 130/80 - Continue on Losartan 100 mg. - Continue to hold indapamide. - she will maintain a blood pressure charting from today for the next 2 weeks and make Nephrology office aware of this. RTC in 6 months with U/A Emmy Crews MD This chart was completed in part utilizing [employer] Speech Voice Recognition Software. Randomword insertions, pronoun errors, and incomplete sentences are an occasional consequence of this system due to software limitations, and ambient noise. Any questions or concerns about the content, text, or information contained within the body of this dictation should be directly addressed to the provider for clarification. documented in this encounter Nursing Notes * Jenn Shell LPN - 11/16/2022 11:19 AM EDT Chief Complaint Patient presents with Follow Up documented in this encounter Miscellaneous Notes * Addendum Note - Emmy Crews MD - 11/16/2022 12:02 PM EDTAddended by: EMMY CREWS on: 11/16/2022 12:02 PM Modules accepted: Orders documented in this encounter Plan of Treatment Upcoming Encounters Date Type Specialty Care Team Description 01/11/2023 Office Visit Nephrology Emmy Crews MD [address] [place] [address] 03/09/2023 Office Visit Family Medicine Tosha Vaca MD [address] [facility] [place] [address] Scheduled Orders Name Type Priority Associated Diagnoses Orde r Schedule COMPREHENSIVE METABOLIC PANEL Lab Routine Essential hypertension with goal blood pressure less than 140/90 HTN, goal below 130/80 Hematuria, microscopic Expected: 05/19/2023, Expires: 11/17/2023 Health Maintenance Due Date Last Done Comments Hepatitis B (1 of 3 - 3-dose series) 1980 HIV Screening 07/08/1995 Hepatitis C Screening 1998 COVID-19 Vaccine (3 - Pfizer series) 09/13/2020 07/19/2020, 06/28/2020 Depression Screening, Annual for Pts 12 and Over 07/21/2021 07/21/2020 Influenza Vaccine (FLU shot) (#1) 2022 01/10/2020, 03/22/2019, 03/22/2019, Additional history exists Mammogram 08/02/2023 08/01/2022, 06/29, 09/29/2016 DTaP,Tdap,and Td Vaccines (2 - Td or Tdap) 09/11/2023 09/10/2013 GFR 11/11/2023 11/10/2022, 07/0 09/2022, 08/01/2022, Additional history exists Albumin/Creatinine Ratio 04/12/2024 04/12/2021 Pap Smear 06/11/2024 06/11/2019, 08/28, 09/15/2016, Additional history exists Diabetes Screening 11/10/2025 11/10/2022, 0 11/10/2022, 11/02/2022, [...] goal blood pressure less than 140/90- Primary HTN, goal below 130/80 Unspecified essential hypertension Hematuria, microscopic Microscopic hematuria documented in this encounter Care Teams Vinyl Top Installer Relationship Specialty Start Date End Date Tosha Vaca MD [address] [facility] [place] [address] PCP - General Internal Medicine 09/06/22 documented as of this encounter
--- OUTSIDE RECORDS SUMMARY | 2023-04-17 21:27 | External Medical Summary | Summary of Care ---
Author Name Unknown Organization [facility] Address [address] [place] [address] Phone [phone] Care Team Providers Care Automotive Product Specialist Name Role Phone Francisco Vaca MD Primary Care Provider Reason for Visit * Reason Onset Date Comments Medication Refill 12/10/2022 Encounter Details Date Type Department Care Team Description 12/10/2022 Refill Family Medicine [facility] [address] [place] [address] Francisco Vaca MD [address] [place] [address] Attention deficit disorder (ADD) without hyperactivity Allergies Active Allergy Reactions Severity Noted Date Comments Ciprofloxacin 10/11/2011 [place] Syrup 04/11/2013 Soy Allergy Nausea/vomiting 09/10/2013 Fatigue, Headache Wheat 09/10/2013 Headache, Fatigue documented as of this encounter (statuses as of 12/11/2022) Medications Medication Sig Dispensed Refills Start Date End Date Status Multi Vitamin Daily Oral Tablet Take by mouth . 0 Ac tive Iron-Vitamin C 65-125 MG Oral Tablet Take 1 Tablet by mouth in the morning. 0 Active [place]-3 1000 MG Oral Capsule Take by mouth [...] Active Propranolol HCl 10 MG Oral Tablet (Inderal)Indicatio ns:Flushing Take 1 Tablet by mouth 4 times a day as needed for Anxiety or Other (flushing). 30 Tablet 5 09/17/2022 Active Methylphenidate HCl ER (CD) 30 MG Oral Capsule Extended ReleaseIndications :Attention deficit disorder (ADD) without hyperactivity Take 1 Capsule by mouth in the morning. 30 Capsule 0 10/23/2022 Active Additional Information Patient not taking.Reported on 11/16/2022 Indapamide 1.25 MG Oral Tablet TAKE 1 TABLET BY MOUTH EVERY MORNING 30 Tablet 3 10/27/2022 Active Additional Information Patient not taking.Reported on 11/16/2022 Amphetamine-Dextro amphetamine 12.5 MG Oral Tablet (Adderall)Indicati ons:Attention deficit disorder (ADD) without hyperactivity Take 1 Tablet by mouth in the morning and 1 Tablet before bedtime. 60 Tablet 0 12/11/2022 Active Amphetamine-Dextro amphetamine 12.5 MG Oral Tablet (Adderall)Indicati ons:Attention deficit disorder (ADD) without hyperactivity Take 1 Tablet by mouth in the morning and 1 Tablet before bedtime. 60 Tablet 0 10/09/2022 3 Discontinue d(Refill) documented as of this encounter (statuses as of 12/11/2022) Active Problems Problem Noted Date Raynaud's disease without gangrene 09/06 Flushing 09/06/2022 Left wrist pain 09/06/2020 Attention deficit disorder (ADD) without hyperactivity 06/23/2017 Essential hypertension with goal blood p ressure less than 140/90 01/21/2016 Allergic rhinitis due to pollen 08/11/19 16 Food allergy 08/11/2015 documented as of this encounter (statuses as of 12/11/2022) Resolved Problems Problem Noted Date Resolved Date [...] as of this encounter (statuses as of 12/11/2022) Immunizations Name Administration Dates Next Due PPD [...] Telephone Encounter - Francisco Vaca MD - 12/11/2022 3:53 PM EDT Signed Prescriptions: Disp Refills Amphetamine-Dextroamphetamine 12.5 MG Oral*60 Tab*0 Sig: Take 1Tablet by mouth in the morning and 1 Tablet before bedtime.Authorizing Provider: FRANCISCO VACA * Telephone Encounter - Francisco Vaca MD - 12/11/2022 3:52 PM EDT I have reviewed the patient's controlled substance dispensing history in the Prescription Drug Monitoring Program in compliance with the [facility] regulations before prescribing a controlled substance. * Telephone Encounter - Venita Arechiga LPN - 12/11/2022 7:47 AM EDTPending Prescriptions: Disp Refills Amphetamine-Dextroamphetamine 12.5 MG Oral*60 Tab*0 Sig: Take 1 Tablet by mouth in the morning and 1 Tablet before bedtime. * Telephone Encounter - Venita Arechiga LPN - 12/11/2022 7:45 AM EDT Did you pend patient's preferred pharmacy and medication before forwarding?yes Pharmacy: [facility] [id number]- [place] Pending Prescriptions: Disp Refills Amphetamine-Dextroamphetamine 12.5 [...] appointment Last date the medication was ordered: 10/09/2022 Is this request for a controlled substance?Yes, What was the last refill date 10/09/2022 w/ quantity 60 and dosage 12.5 and Urine Drug Screen Not completed Urine [...] Date Type Specialty Care Team Description 12/22/2022 Appointment Radiology 03/09/2023 Office Visit Family Medicine Francisco Vaca MD [address] [place] [address] 05/22/2023 Office Visit Nephrology Tay Guerra MD [address] [place] [address] Health Maintenance Due Date [...] hyperactivity documented in this encounter Care Teams Automotive Product Specialist Relationship Specialty Start Date End Date Francisco Vaca MD [address] [facility] [place] [address] PCP - General Internal Medicine 09/06/22 documented as of this encounter
--- OUTSIDE RECORDS SUMMARY | 2023-04-17 21:27 | External Medical Summary ---
Author Name Unknown Address Unknown Organization [id number]:LAB[facility]ORY [facility] - [address] [place] [address] Laboratory Report Ordering Provider Test Date Status LULU CORLEY 11/25/2022 14:05:35 Final Observation Date Value Abnormality Reference (Units ) Status Retic, % (auto) 11/25/2022 14:05:35 1.34 0.80-1.90 (%) Final Reticulocytes, Absolute 11/25/2022 14:05:35 58.4 31.3-100.1 (K/uL) Final Reticulocyte fraction, immature 11/25/2022 14:05:35 13.0 2.5-20.6 (%) Final Reticulocyte HGB 11/25/2022 14:05:35 31.1 29.7-37.4 (pg) Final Performing Location [facility] - [address] [place] [address]
--- OUTSIDE RECORDS SUMMARY | 2023-04-17 21:27 | External Medical Summary ---
Author Name Unknown Address Unknown Organization [id number]:LABORATORY [facility] - [address] [place] [address] Laboratory Report Ordering Provider Test Date Status JOSE LUISGWEN 12/22/2022 08:46:28 Final Warfarin Therapy
INR: 2 .0-3.0 conventional anticoagulation
INR: 2.5- 3.5 high intensity anticoagulation Observation Date Value Abnormality Reference (Units ) Status PT 12/22/2022 08:46:28 13.0 11.6-15.2 (seconds) Final INR 12/22/2022 08:46:28 1.0 0.8-1.2 Final Performing Location [facility]ORY [facility] [place] - [address] [place] [address]
--- OUTSIDE RECORDS SUMMARY | 2023-04-17 21:27 | External Medical Summary ---
Author Name Unknown Address Unknown Organization [id number]:[facility] - [address] [place] [address] Laboratory Report Ordering Provider Test Date Status LULU CORLEY 11/16/2022 08:58:03 Final Observation Date Value Abnormality Reference (Units ) Status Ferritin 11/16/2022 08:58:03 256 Above high normal 13 -150 (ng/mL) Final Postmenopausal women have hi gher ferritin levels than pre-menopausal women. The above reference interval is based on pre-menopausal women. Performing Location [facility] [place] - [address] [place] [address]
--- OUTSIDE RECORDS SUMMARY | 2023-04-17 21:27 | External Medical Summary ---
Author Name Unknown Address Unknown Organization [id number]:[facility] [address] [facility] [place] [address] Laboratory Report Ordering Provider Test Date Status LULU CORLEY 11/25/2022 14:05:35 Final Observation Date Value Abnormality Reference (Units ) Status SYNC LEUKOCYTES IN BLOOD BY AUTOMATED COUNT 11/25/2022 14:05:35 8.25 4.00-10.80 (K/uL) Final Segs 11/25/2022 14:05:35 57.5 40.0-75.0 (%) Final Lymphs % 11/25/2022 14:05:35 30.3 18.0-42.0 (%) Final Monos 11/25/2022 14:05:35 9.3 1.0-11.0 (%) Final Eosinophils 11/25/2022 14:05:35 1.8 0.0-6.0 (%) Final Basos 11/25/2022 14:05:35 0.7 0.0-2.0 (%) Final Immature Granulocyte, Percent 11/25/2022 14:05:35 0.4 0.0-2.0 (%) Final Absolute Segs 11/25/2022 14:05:35 4.74 1.80-7.70 (K/uL) Final Lymphs, absolute 11/25/2022 14:05:35 2.50 1.00-4.80 (K/ul) Final Monos, Abs 11/25/2022 14:05:35 0.77 0.00-1.10 (K/uL) Final Eos, Abs 11/25/2022 14:05:35 0.15 0.00-0.70 (K/uL) Final Basos, Abs 11/25/2022 14:05:35 0.06 0.00-0.20 (K/uL) Final Immature Granulocytes, Number 11/25/2022 14:05:35 0.03 0.00-0.20 (K/uL) Final Performing Location [facility] - [address] [facility] [place] [address]
--- OUTSIDE RECORDS SUMMARY | 2023-04-17 21:27 | External Medical Summary ---
Author Name Unknown Address Unknown Organization [id number]:LAB[facility]ATORY [facility] [address] - [address] [place] [address] Laboratory Report Ordering Provider Test Date Status MARS BOOTH 11/16/2022 09:01:25 Final Observation Date Value Abnormality Reference (Units ) Status Color of Urine by Auto 11/16/2022 09:01:25 Yellow Colorless, Light Yellow, Yellow, Dark Yellow Final Clarity, Urine 11/16/2022 09:01:25 Clear Clear Final Glucose [Mass/volume] in Urine by Automated test strip 11/16/2022 09:01:25 Negative Negative (mg/dL) Final Bilirubin.total [Presence] in Urine by Automated test strip 11/16/2022 09:01:25 Negative Negative Final Ketones [Mass/volume] in Urine by Automated test strip 11/16/2022 09:01:25 Negative Negative (mg/dL) Final Specific gravity, Urine 11/16/2022 09:01:25 1.015 1.003-1.030 Final Hemoglobin [Presence] in Urine by Automated test strip 11/16/2022 09:01:25 Large Abnormal Negative Final pH, Urine 11/16/2022 09:01:25 5.5 5.0-7.5 (Units) Final Protein [Mass/volume] in Urine by Automated test strip 11/16/2022 09:01:25 Negative Negative (mg/dL) Final Urobilinogen [Mass/volume] in Urine by Automated test strip 11/16/2022 09:01:25 0.2 0.2, 1.0 (mg/dL) Final Nitrite [Presence] in Urine by Automated test strip 11/16/2022 09:01:25 Negative Negative Final Leukocyte esterase [Presence] in Urine by Automated test strip 11/16/2022 09:01:25 Negative Negative Final RBC, Urine 11/16/2022 09:01:25 10-19 Abnormal 0-2 (/HPF) Final WBC, Urine 11/16/2022 09:01:25 0-2 0-2 (/HPF) Final Bacteria [#/area] in Urine sediment by Microscopy high power field 11/16/2022 09:01:25 0-25 0-25 (/HPF) Final Performing Location LABORATORY [facility] [address] [place], [place] [address]
--- OUTSIDE RECORDS SUMMARY | 2023-04-17 21:27 | External Medical Summary ---
Author Name Unknown Address Unknown Organization [id number]:LABORATORY [facility] [place] - [address] [place] [address] Laboratory Report Ordering Provider Test Date Status JORYRUBEN BONILLATA 11/25/2022 14:05:35 Final Observation Date Value Abnormality Reference (Units ) Status Albumin 11/25/2022 14:05:35 4.4 3.8-5.0 (g/dL) Final AST (Aspartate aminotransferase) 11/25/2022 14:05:35 14 10-35 (U/L) Final Alk Phos 11/25/2022 14:05:35 59 35-130 (U/L) Final ALT (Alanine aminotransferase) 11/25/2022 14:05:35 31 10-35 (U/L) Final Bilirubin, Total 11/25/2022 14:05:35 0.5 <=1.2 (mg/dL) Final Bilirubin, Direct 11/25/2022 14:05:35 <0.2 0.0-0.3 (mg/dL) Final Protein 11/25/2022 14:05:35 6.8 6.0-8.3 (g/dL) Final Performing Location LABORATORY [facility] [place] - [address] [place] [address]
--- OUTSIDE RECORDS SUMMARY | 2023-04-17 21:27 | External Medical Summary | Summary of Care ---
Author Name Unknown Organization [facility] Address [address] [place] [address] Phone [phone] Care Team Providers Care Silk Folder Name Role Phone Tosha Vaca MD Primary Care Provider Encounter Details Date Type Department Care Team Description 12/20/2022 Orders Only Interventional Radiology [facility], [address] [place] [address] Gretta Centeno RN Encounter for general adult medical examination w/o abnormal findings* Allergies Active Allergy Reactions Severity Noted Date Comments Ciprofloxacin 10/11/2011 [place] Syrup 04/11/2013 Soy Allergy Nausea/vomiting 09/10/2013 Fatigue, Headache Wheat 09/10/2013 Headache, Fatigue documented as of this encounter (statuses as of 12/20/2022) Medications Medication Sig Dispensed Refills Start Date End Date Status Multi Vitamin Daily Oral Tablet Take by mouth . 0 Active Iron-Vitamin C 65-125 MG Oral Tablet Take 1 Tablet by mouth in the morning. 0 Active [place]-3 1000 MG Oral Capsule Take by mouth . 0 Active Vitamin D (Cholecalciferol) 50 MCG (1999 UT) Oral Capsule Take by mouth . 0 Active Losartan Potassium 50 MG Oral Tablet (Cozaar) TAKE 2 TABLETS BY MOUTH EVERY MORNING 60 Tablet 11 07/11/2022 Active Fluticasone Propionate 50 MCG/ACT Nasal Suspension Administer 1 [place] into nostril in the morning. 0 Active [...] Additional Information Patient not taking.Reported on 11/16/2022 Amphetamine-Dextroam phetamine 12.5 MG Oral Tablet (Adderall)Indication s:Attention deficit disorder (ADD) without hyperactivity Take 1 Tablet by mouth in the morning and 1 Tablet before bedtime. 60 Tablet 0 12/11/2022 Active documented as of this encounter (statuses as of 12/20/2022) Active Problems Problem Noted Date Raynaud's disease without gangrene 09/06 [place] 09/06/2022 Left wrist pain 09/06/2020 Attention deficit disorder (ADD) without hyperactivity 06/23/2017 Essential hypertension with goal blood p ressure less than 140/90 01/21/2016 Allergic rhinitis due to pollen 08/11/19 16 Food allergy 08/11/2015 documented as of this encounter (statuses as of 12/20/2022) Resolved Problems Problem Noted Date Resolved Date [...] as of this encounter (statuses as of 12/20/2022) Immunizations Name Administration Dates Next Due PPD [...] Specialty Care Team Description 12/22/2022 Hospital Encounter Radiology 03/09/2023 Office Visit Family Medicine Tosha Vaca MD [address] [place] [address] 05/22/2023 Office Visit Nephrology Tay Guerra MD [address] [place] [address] Scheduled Orders Name Type Priority Associated Diagnoses Orde r Schedule PT INR Lab STAT Encounter for general adult medical examination w/o abnormal findings Expected: 12/20/2022, Expires: 02/19/2023 Health Maintenance Due Date Last Done Comments [...] for general adult medical examination w/o abnormal findings- Primary Unspecified general medical examination documented in this encounter Care Teams Silk Folder Relationship Specialty Start Date End Date Tosha Vaca MD [address] [facility] [place] [address] PCP - General Internal Medicine 09/06/22 documented as of this encounter
--- OUTSIDE RECORDS SUMMARY | 2023-04-17 21:27 | External Medical Summary | Summary of Care ---
Author Name Unknown Organization [facility] Address [address] [place] [address] Phone [phone] Care Team Providers Care Travel Registered Nurse Oncology Name Role Phone Tosha Vaca MD Primary Care Provider Encounter Details Date Type Department Care Team Description 11/27/2022 Orders Only Nephrology, [address] [address] Tay Guerra MD [address] [place] [address] Essential hypertension with goal blood pressure less than 140/90*; Hematuria, microscopic Allergies Active Allergy Reactions Severity Noted Date Comments Ciprofloxacin 10/11/2011 [place] Syrup 04/11/2013 Soy Allergy Nausea/vomiting 09/10/2013 Fatigue, Headache Wheat 09/10/2013 Headache, Fatigue documented as of this encounter (statuses as of 11/27/2022) Medications Medication Sig Dispensed Refills Start Date End Date Status Multi Vitamin Daily Oral Tablet Take by mouth . 0 Active Iron-Vitamin C 65-125 MG Oral Tablet Take 1 Tablet by mouth in the morning. 0 Active [place]-3 1000 MG Oral Capsule Take by mouth . 0 Active Vitamin D (Cholecalciferol) 50 MCG (2000 UT) Oral Capsule Take by mouth . 0 Active Losartan Potassium 50 MG Oral Tablet (Cozaar) TAKE 2 TABLETS BY MOUTH EVERY MORNING 60 Tablet 11 07/11/2022 Active Fluticasone Propionate 50 MCG/ACT Nasal Suspension Administer 1 [place] into nostril in the morning. 0 Active [...] as of this encounter (statuses as of 11/27/2022) Active Problems Problem Noted Date Raynaud's disease without gangrene 09/06 [place] 09/06/2022 Left wrist pain 09/06/2020 Attention deficit disorder (ADD) without hyperactivity 06/23/2017 Essential hypertension with goal blood p ressure less than 140/90 01/21/2016 Allergic rhinitis due to pollen 08/11/19 16 Food allergy 08/11/2015 documented as of this encounter (statuses as of 11/27/2022) Resolved Problems Problem Noted Date Resolved Date [...] as of this encounter (statuses as of 11/27/2022) Immunizations Name Administration Dates Next Due PPD [...] Office Visit Nephrology Tay Guerra MD [address] [place] [address] Scheduled Orders Name Type Priority Associated Diagnoses Orde r Schedule IR BIOPSY Medical Imaging Routine Essential hypertension with goal blood pressure less than 140/90 Hematuria, microscopic Ordered: 11/27/2022 Health Maintenance Due Date Last Done Comments [...] hematuria documented in this encounter Care Teams Travel Registered Nurse Oncology Relationship Specialty Start Date End Date Tosha Vaca MD [address] [place] [address] PCP - General Internal Medicine 09/06/22 documented as of this encounter
--- OUTSIDE RECORDS SUMMARY | 2023-04-17 21:27 | External Medical Summary | Summary of Care ---
Author Name Unknown Organization [facility] Address [address] [place] [address] Phone [phone] Care Team Providers Care Section 8 Property Manager Name Role Phone Tosha Vaca MD Primary Care Provider Reason for Visit * Reason Comments Outpatient Testing Encounter Details Date Type Department Care Team Description 11/25/2022 Laboratory Laboratory, [facility] [address] [place] [address] [facility] [address] [place] [address] Anemia, unspecified type; Anaplasmosis; Transaminitis Allergies Active Allergy Reactions Severity Noted Date Comments Ciprofloxacin 10/11/2011 [place] Syrup 04/11/2013 Soy Allergy Nausea/vomiting 09/10/2013 Fatigue, Headache Wheat 09/10/2013 Headache, Fatigue documented as of this encounter (statuses as of 11/25/2022) Medications Medication Sig Dispensed Refills Start Date End Date Status Multi Vitamin Daily Oral Tablet Take by mouth . 0 Active Iron-Vitamin C 65-125 MG Oral Tablet Take 1 Tablet by mouth in the morning. 0 Active [place]-3 1000 MG Oral Capsule Take by mouth . 0 Active Vitamin D (Cholecalciferol) 50 MCG (1999 UT) Oral Capsule Take by mouth . 0 Active Losartan Potassium 50 MG Oral Tablet (Cozaar) TAKE 2 TABLETS BY MOUTH EVERY MORNING 60 Tablet 11 07/11/2022 Active Fluticasone Propionate 50 MCG/ACT Nasal Suspension Administer 1 [place] into nostril in the morning. 0 Active [...] as of this encounter (statuses as of 11/25/2022) Active Problems Problem Noted Date Raynaud's disease without gangrene 09/06 [place] 09/06/2022 Left wrist pain 09/06/2020 Attention deficit disorder (ADD) without hyperactivity 06/23/2017 Essential hypertension with goal blood p ressure less than 140/90 01/21/2016 Allergic rhinitis due to pollen 08/11/19 16 Food allergy 08/11/2015 documented as of this encounter (statuses as of 11/25/2022) Resolved Problems Problem Noted Date Resolved Date [...] as of this encounter (statuses as of 11/25/2022) Immunizations Name Administration Dates Next Due PPD [...] Office Visit Nephrology Tay Guerra MD [address] [place] [address] Pending Results Name Type Priority Associated Diagnoses Date /Time CBC WITH WBC DIFFERENTIAL AND ANEMIA REFLEX WORKUP Lab Routine Anemia, unspecified type Anaplasmosis Transaminitis 11/25/2022 2:05 PM EDT HEPATIC FUNCTION PANEL Lab Routine Anemia, unspecified type Anaplasmosis Transaminitis 11/25/2022 2:05 PM EDT ANEMIA CBC Lab Routine Anemia, unspecified type Anaplasmosis Transaminitis 11/25/2022 2:05 PM EDT DIFFERENTIAL, AUTOMATED Lab Routine Anemia, unspecified type Anaplasmosis Transaminitis 11/25/2022 2:05 PM EDT ANEMIA REFLEX CHEMISTRY HOLD Lab Routine Anemia, unspecified type Anaplasmosis Transaminitis 11/25/2022 2:05 PM EDT Health Maintenance Due Date Last Done [...] as of this encounter Visit Diagnoses Diagnosis Anemia, unspecified type Anaplasmosis Other ehrlichiosis Transaminitis Nonspecific elevation of levels of transaminase or lactic acid dehydrogenase (LDH) documented in this encounter Care Teams Section 8 Property Manager Relationship Specialty Start Date End Date Tosha Vaca MD [address] [place] [address] PCP - General Internal Medicine 09/06/22 documented as of this encounter
--- OUTSIDE RECORDS SUMMARY | 2023-04-17 21:27 | External Medical Summary | Summary of Care ---
Author Name Unknown Organization [facility] Address [address] [place] [address] Phone [phone] Care Team Providers Care Digital Design Engineer Name Role Phone Tosha Vaca MD Primary Care Provider Encounter Details Date Type Department Care Team Description 12/20/2022 Orders Only Interventional Radiology [facility], [address] [place] [address] Gretta Centeno RN Hematuria, unspecified type* Allergies Active Allergy Reactions Severity Noted Date Comments Ciprofloxacin 10/11/2011 [place] Syrup 04/11/2013 Soy Allergy Nausea/vomiting 09/10/2013 Fatigue, Headache Wheat 09/10/2013 Headache, Fatigue documented as of this encounter (statuses as of 12/20/2022) Medications Medication Sig Dispensed Refills Start Date End Date Status Multi Vitamin Daily Oral Tablet Take by mouth . 0 Active Iron-Vitamin C 65-125 MG Oral Tablet Take 1 Tablet by mouth in the morning. 0 Active [place]-3 1000 MG Oral Capsule Take by mouth . 0 Active Vitamin D (Cholecalciferol) 50 MCG (1999 UT) Oral Capsule Take by mouth . 0 Active Losartan Potassium 50 MG Oral Tablet (Cozaar) TAKE 2 TABLETS BY MOUTH EVERY MORNING 60 Tablet 11 07/11/2022 Active Fluticasone Propionate 50 MCG/ACT Nasal Suspension Administer 1 [place] into nostril in the morning. 0 Active [...] Office Visit Nephrology Tay Guerra MD [address] [place] [address] Scheduled Orders Name Type Priority Associated Diagnoses Orde r Schedule SURGICAL PATHOLOGY Pathology Routine Hematuria, unspecified type Expected: 12/21/2022, Expires: 06/22/2023 Health Maintenance Due Date Last Done Comments [...] as of this encounter Visit Diagnoses Diagnosis Hematuria, unspecified type- Primary documented in this encounter Care Teams Digital Design Engineer Relationship Specialty Start Date End Date Tosha Vaca MD [address] [place] [address] PCP - General Internal Medicine 09/06/22 documented as of this encounter
--- OUTSIDE RECORDS SUMMARY | 2023-04-17 21:27 | External Medical Summary | Summary of Care ---
Author Name Unknown Organization [facility] Address [address] [place] [address] Phone [phone] Care Team Providers Care Education Liaison Name Role Phone Tosha Vaca MD Primary Care Provider Reason for Visit * Reason Comments Follow Up Encounter Details Date Type Department Care Team Description 11/16/2022 Office Visit Nephrology, [address] [address] Emmy Crews MD [address] [place] [id number] Essential hypertension with goal blood pressure less than 140/90*; HTN, goal below 130/80; Hematuria, microscopic Allergies Active Allergy Reactions Severity Noted Date Comments Ciprofloxacin 10/11/2011 [place] Syrup 04/11/2013 Soy Allergy Nausea/vomiting 09/10/2013 Fatigue, Headache Wheat 09/10/2013 Headache, Fatigue documented as of this encounter (statuses as of 11/16/2022) Medications Medication Sig Dispensed Refills Start Date End Date Status Multi Vitamin Daily Oral Tablet Take by mouth . 0 Active Iron-Vitamin C 65-125 MG Oral Tablet Take 1 Tablet by mouth in the morning. 0 Active [place]-3 1000 MG Oral Capsule Take by mouth . 0 Active Vitamin D (Cholecalciferol) 50 MCG (1999 UT) Oral Capsule Take by mouth . 0 Active Losartan Potassium 50 MG Oral Tablet (Cozaar) TAKE 2 TABLETS BY MOUTH EVERY MORNING 60 Tablet 11 07/11/2022 Active Fluticasone Propionate 50 MCG/ACT Nasal Suspension Administer 1 [place] into nostril in the morning. 0 Active [...] ofgrossand microscopic hematuria since 2010.She was in [place] at that time and was admitted with [...] labs way normal(rheumatoid factor,SAM) After moving to [place] [facility]).She tells me that she [...] 1 Tablet by mouth in the morning. [place]-3 1000 MG Oral Capsule Take by mouth . Vitamin D (Cholecalciferol) 50 MCG (2000 UT) Oral Capsule Take by mouth . Losartan Potassium 50 MG Oral Tablet (Cozaar) TAKE 2 TABLETS BY MOUTH EVERY MORNING 60 Tablet 11 Fluticasone Propionate 50 MCG/ACT Nasal Suspension Administer 1 [place] into nostril in the morning. Propranolol HCl [...] of patient's allergies indicates: Allergen Reactions Ciprofloxacin [place] Syrup Soy Allergy Nausea/vomiting Fatigue, Headache Wheat [...] This chart was completed in part utilizing [employer] Voice Recognition Software. Randomword insertions, pronoun [...] Vaca MD [address] [place] [address] 05/22/2023 Office Visit Nephrology [facility] [address] Scheduled Orders Name Type Priority Associated [...] hematuria documented in this encounter Care Teams Education Liaison Relationship Specialty Start Date End Date Tosha Vaca MD [address] [facility] [place] [address] PCP - General Internal Medicine 09/06/22 documented as of this encounter
--- OUTSIDE RECORDS SUMMARY | 2023-04-17 21:27 | External Medical Summary | Summary of Care ---
Author Name Unknown Organization [facility] Address [address] [place] [address] Phone [phone] Care Team Providers Care Containers Sales Representative Name Role Phone Tosha Vaca MD Primary Care Provider Reason for Visit * Reason Comments Outpatient Testing Encounter Details Date Type Department Care Team Description 11/16/2022 Laboratory Laboratory, [facility] [address] [place] [address] [facility] [address] [place] [address] Anaplasmosis; Essential hypertension with goal blood pressure less than 140/90 Allergies Active Allergy Reactions Severity Noted Date Comments Ciprofloxacin 10/11/2011 [place] Syrup 04/11/2013 Soy Allergy Nausea/vomiting 09/10/2013 Fatigue, Headache Wheat 09/10/2013 Headache, Fatigue documented as of this encounter (statuses as of 11/16/2022) Medications Medication Sig Dispensed Refills Start Date End Date Status Multi Vitamin Daily Oral Tablet Take by mouth . 0 Active Iron-Vitamin C 65-125 MG Oral Tablet Take 1 Tablet by mouth in the morning. 0 Active [place]-3 1000 MG Oral Capsule Take by mouth . 0 Active Vitamin D (Cholecalciferol) 50 MCG (1999 UT) Oral Capsule Take by mouth . 0 Active Losartan Potassium 50 MG Oral Tablet (Cozaar) TAKE 2 TABLETS BY MOUTH EVERY MORNING 60 Tablet 11 07/11/2022 Active Fluticasone Propionate 50 MCG/ACT Nasal Suspension Administer 1 [place] into nostril in the morning. 0 Active [...] before bedtime. 60 Tablet 0 10/09/2022 Active Additional Information Patient not taking.Reported on 11/10/2022 Methylphenidate HCl ER (CD) 30 MG Oral Capsule Extended ReleaseIndications:A ttention deficit disorder (ADD) without hyperactivity Take 1 Capsule by mouth in the morning. 30 Capsule 0 10/23/2022 Active Indapamide 1.25 MG Oral Tablet TAKE 1 TABLET BY MOUTH EVERY MORNING 30 Tablet 3 10/27/2022 Active documented as of this encounter (statuses [...] Encounters Date Type Specialty Care Team Description 11/16/2022 Office Visit Nephrology Tay Guerra MD [address] [place] [address] 01/11/2023 Office Visit Nephrology Tay Guerra MD [address] [place] [address] 03/09/2023 Office Visit Family Medicine Tosha Vaca MD [address] [facility] [place] [address] Pending Results Name Type Priority Associated Diagnoses Date /Time CBC WITH WBC DIFFERENTIAL Lab Routine Anaplasmosis 11/16/2022 8:58 AM EDT HEPATIC FUNCTION PANEL Lab Routine Anaplasmosis 11/16/2022 8:58 AM EDT FERRITIN Lab Routine Anaplasmosis 11/16/2022 8:58 AM EDT CBC Lab Routine Anaplasmosis 11/16/2022 8:58 AM EDT DIFFERENTIAL, AUTOMATED Lab Routine Anaplasmosis 11/16/2022 8:58 AM EDT URINALYSIS WITH MICROSCOPIC EXAM Lab Routine Essential hypertension with goal blood pressure less than 140/90 11/16/2022 9:01 AM EDT Health Maintenance Due Date Last [...] as of this encounter Visit Diagnoses Diagnosis Anaplasmosis Other ehrlichiosis Essential hypertension with goal blood pressure less than 140/90 documented in this encounter Care Teams Containers Sales Representative Relationship Specialty Start Date End Date Tosha Vaca MD [address] [place] [address] PCP - General Internal Medicine 09/06/22 documented as of this encounter
--- OUTSIDE RECORDS SUMMARY | 2023-04-17 21:27 | External Medical Summary | Summary of Care ---
Author Name Unknown Organization [facility] [address] [place] [address] Phone [phone] Care Team Providers Care Hooker On Name Role Phone Tosha Vaca MD Primary Care Provider Reason for Visit * Reason Onset Date Comments Scheduling 12/01/2022 Encounter Details Date Type Department Care Team Description 12/01/2022 Telephone Interventional Radiology, [facility] [address] [place] [address] Requisition, External Radiology [address] [place] [address] Scheduling Allergies Active Allergy Reactions Severity Noted Date Comments Ciprofloxacin 10/11/2011 [place] Syrup 04/11/2013 Soy Allergy Nausea/vomiting 09/10/2013 Fatigue, Headache Wheat 09/10/2013 Headache, Fatigue documented as of this encounter (statuses as of 12/01/2022) Medications Medication Sig Dispensed Refills Start Date End Date Status Multi Vitamin Daily Oral Tablet Take by mouth . 0 Active Iron-Vitamin C 65-125 MG Oral Tablet Take 1 Tablet by mouth in the morning. 0 Active [place]-3 1000 MG Oral Capsule Take by mouth . 0 Active Vitamin D (Cholecalciferol) 50 MCG (1999 UT) Oral Capsule Take by mouth . 0 Active Losartan Potassium 50 MG Oral Tablet (Cozaar) TAKE 2 TABLETS BY MOUTH EVERY MORNING 60 Tablet 11 07/11/2022 Active Fluticasone Propionate 50 MCG/ACT Nasal Suspension Administer 1 [place] into nostril in the morning. 0 Active [...] as of this encounter (statuses as of 12/01/2022) Active Problems Problem Noted Date Raynaud's disease without gangrene 09/06 [place] 09/06/2022 Left wrist pain 09/06/2020 Attention deficit disorder (ADD) without hyperactivity 06/23/2017 Essential hypertension with goal blood p ressure less than 140/90 01/21/2016 Allergic rhinitis due to pollen 08/11/19 16 Food allergy 08/11/2015 documented as of this encounter (statuses as of 12/01/2022) Resolved Problems Problem Noted Date Resolved Date [...] as of this encounter (statuses as of 12/01/2022) Immunizations Name Administration Dates Next Due PPD [...] encounter Miscellaneous Notes * Telephone Encounter - MALIK Telles - 12/01/2022 10:31 AM EDT Attempted to reach the patient to schedule the Kidney biopsy , no answer message was left. documented in this encounter Plan of Treatment Upcoming Encounters Date Type Specialty Care Team Description 03/09/2023 Office Visit Family Medicine Tosha Vaca MD [address] [place] [address] 05/22/2023 Office Visit Nephrology Mari, Jawed, MD [address] [place] [address] Health Maintenance Due Date Last Done Comments [...] filedocumented as of this encounter Care Teams Hooker On Relationship Specialty Start Date End Date Tosha Vaca MD [address] [place] [place] [address] PCP - General Internal Medicine 09/06/22 documented as of this encounter
--- OUTSIDE RECORDS SUMMARY | 2023-04-17 21:28 | External Medical Summary ---
Author Name Unknown Address Unknown Organization [id number]:[facility] - [address] [place] [address] Laboratory Report Ordering Provider Test Date Status LULU CORLEY 11/10/2022 14:07:04 Final Observation Date Value Abnormality Reference (Units ) Status Iron 11/10/2022 14:07:04 92 33-151 (ug/dL) Final Iron-binding capacity 11/10/2022 14:07:04 244 Below low normal 250-425 (ug/dL) Final Transferrin Sat % 11/10/2022 14:07:04 38 15-55 (%) Final Performing Location [facility] [address] [facility] [address]
--- OUTSIDE RECORDS SUMMARY | 2023-04-17 21:28 | External Medical Summary ---
Author Name Unknown Address Unknown Organization [id number]:[facility] - [address] [place] [address] Laboratory Report Ordering Provider Test Date Status LULU CORLEY 11/10/2022 14:07:04 Final Observation Date Value Abnormality Reference (Units ) Status WBC, Total 11/10/2022 14:07:04 7.54 4.00-10.8 0 (K/uL) Final RBC 11/10/2022 14:07:04 4.40 3.85-5.15 (M/uL) Final Hemoglobin 11/10/2022 14:07:04 11.8 Below low normal 12 .0-15.3 (g/dL) Final HCT 11/10/2022 14:07:04 35.4 Below low normal 36. 0-45.2 (%) Final MCV 11/10/2022 14:07:04 80.5 81.5-97.5 (fL) Final MCH 11/10/2022 14:07:04 26.8 27.0-34.0 (pg) Final MCHC 11/10/2022 14:07:04 33.3 32.0-36.0 (g/dL) Final RDW 11/10/2022 14:07:04 18.0 11.5-15.5 (%) Final Platelets 11/10/2022 14:07:04 355 140-400 (K /uL) Final MPV 11/10/2022 14:07:04 9.7 6.6-11.1 ( fL) Final Performing Location [facility] 0 - [address] [place] [address]
--- OUTSIDE RECORDS SUMMARY | 2023-04-17 21:28 | External Medical Summary ---
Author Name Unknown Address Unknown Organization [id number]:[facility] - [address] [place] [address] Laboratory Report Ordering Provider Test Date Status LULU CORLEY 11/10/2022 14:07:04 Final Observation Date Value Abnormality Reference (Units ) Status BUN 11/10/2022 14:07:04 21 Above high normal 6-20 (mg/dL) Final Creatinine 11/10/2022 14:07:04 0.9 0.5-1.0 (mg/dL) Final Glomerular filtration rate/1.73 sq M.predicted [Volume Rate/Area] in Serum, Plasma or Blood by Creatinine-based formula (CKD-EPI) 11/10/2022 14:07:04 84 >=60 (mL/min) Final eGFR is calculated based on the CKD-EPI 2020 equation SODIUM 11/10/2022 14:07:04 139 135-146 (m mol/L) Final Potassium 11/10/2022 14:07:04 4.4 3.5-5.1 (m mol/L) Final Cl 11/10/2022 14:07:04 102 98-107 (mm ol/L) Final CO2 11/10/2022 14:07:04 27 22-32 (mmo l/L) Final Anion gap 11/10/2022 14:07:04 10 7-15 (mmol /L) Final Glucose 11/10/2022 14:07:04 91 70-120 (mg /dL) Final Albumin 11/10/2022 14:07:04 4.2 3.8-5.0 (g /dL) Final AST (Aspartate aminotransferase) 11/10/2022 14:07:04 113 Above high normal 10-35 (U/L) Final Alk Phos 11/10/2022 14:07:04 65 35-130 (U/ L) Final Bilirubin, Total 11/10/2022 14:07:04 0.7 <=1 .2 (mg/dL) Final Calcium 11/10/2022 14:07:04 9.9 8.4-10.2 ( mg/dL) Final Protein 11/10/2022 14:07:04 6.9 6.0-8.3 (g /dL) Final ALT (Alanine aminotransferase) 11/10/2022 14:07:04 343 Above high normal 10-35 (U/L) Final [facility] - [address] [facility] [address]
--- OUTSIDE RECORDS SUMMARY | 2023-04-17 21:28 | External Medical Summary ---
Author Name Unknown Address Unknown Organization [id number]:[facility] [address] - [address] [place] [address] Laboratory Report Ordering Provider Test Date Status ERNIE CHILDRESS 11/02/2022 14:13:05 Final Observation Date Value Abnormality Reference (Units ) Status SYNC LEUKOCYTES IN BLOOD BY AUTOMATED COUNT 11/02/2022 14:13:05 1.84 Below low normal 4.00-10.80 (K/uL) Final Neutrophils/100 leukocytes in Blood by Manual count 11/02/2022 14:13:05 60.0 40.0-75.0 (%) Final Lymphocytes/100 leukocytes in Blood by Manual count 11/02/2022 14:13:05 18.0 18.0-42.0 (%) Final Monocytes/100 leukocytes in Blood by Manual count 11/02/2022 14:13:05 19.0 Above high normal 1.0-11.0 (%) Final Eosinophils/100 leukocytes in Blood by Manual count 11/02/2022 14:13:05 2.0 0.0-6.0 (%) Final Metamyelocytes/100 leukocytes in Blood by Manual count 11/02/2022 14:13:05 1.0 Above high normal <=0.0 (%) Final Neutrophils [#/volume] in Blood by Manual count 11/02/2022 14:13:05 1.10 Below low normal 1.80-7.70 (K/uL) Final Lymphocytes [#/volume] in Blood by Manual count 11/02/2022 14:13:05 0.33 Below low normal 1.00-4.80 (K/uL) Final Monocytes [#/volume] in Blood by Manual count 11/02/2022 14:13:05 0.35 0.00-1.10 (K/uL) Final Eosinophils [#/volume] in Blood by Manual count 11/02/2022 14:13:05 0.04 0.00-0.70 (K/uL) Final Metamyelocytes [#/volume] in Blood by Manual count 11/02/2022 14:13:05 0.02 Above high normal <=0.00 (K/uL) Final Variant lymphocytes [Presence] in Blood by Light microscopy 11/02/2022 14:13:05 Present Abnormal None Seen Final Performing Location LABORATORY [facility] [address] - [address] [facility] [address]
--- OUTSIDE RECORDS SUMMARY | 2023-04-17 21:28 | External Medical Summary ---
Author Name Unknown Address Unknown Organization [id number]:[facility] [place] [address] [place] [address] Laboratory Report Ordering Provider Test Date Status LULU CORLEY 11/10/2022 14:07:04 Final Observation Date Value Abnormality Reference (Units ) Status Ferritin 11/10/2022 14:07:04 462 Above high normal 13 -150 (ng/mL) Final Postmenopausal women have hi gher ferritin levels than pre-menopausal women. The above reference interval is based on pre-menopausal women. Performing Location [facility] [place] [address] [place] [address]
--- OUTSIDE RECORDS SUMMARY | 2023-04-17 21:28 | External Medical Summary ---
Author Name Unknown Address Unknown Organization [id number]:[facility] [place] [address] [place] [address] Laboratory Report Ordering Provider Test Date Status LULU CORLEY 11/10/2022 14:07:04 Final Observation Date Value Abnormality Reference (Units ) Status HbA1C 11/10/2022 14:07:04 5.5 4.0-5.6 (% ) Final The use of HbA1c to monitor glycemic status is based on normal hemoglobin and HbA composition. This test should not be used in patients with abnormal hemoglobin that affects the half life of the red blood cell or the in vivo glycation rates. Glucose, estimated average 11/10/2022 14:07:04 111 <126 (mg/dL) Final Performing Location LAB[facility]ATORY [facility] - [address] [place] [address]
--- OUTSIDE RECORDS SUMMARY | 2023-04-17 21:28 | External Medical Summary | Summary of Care ---
Author Name Unknown Organization [facility] Address [address] [place] [address] Phone [phone] Care Team Providers Care Development Team Lead Name Role Phone Tosha Vaca MD Primary Care Provider Reason for Visit * Reason Comments Outpatient Testing Encounter Details Date Type Department Care Team Description 11/10/2022 Laboratory Laboratory, [facility] [address] [place] [address] [facility] [address] [place] [address] Anaplasmosis; Hyponatremia; Leukopenia, unspecified type; Thrombocytopenia (HCC); Prediabetes Allergies Active Allergy Reactions Severity Noted Date Comments Ciprofloxacin 10/11/2011 [place] Syrup 04/11/2013 Soy Allergy Nausea/vomiting 09/10/2013 Fatigue, Headache Wheat 09/10/2013 Headache, Fatigue documented as of this encounter (statuses as of 11/10/2022) Medications Medication Sig Dispensed Refills Start Date End Date Status Multi Vitamin Daily Oral Tablet Take by mouth . 0 Active Iron-Vitamin C 65-125 MG Oral Tablet Take 1 Tablet by mouth in the morning. 0 Active [place]-3 1000 MG Oral Capsule Take by mouth . 0 Active Vitamin D (Cholecalciferol) 50 MCG (1999 [place]) Oral Capsule Take by mouth . 0 Active Losartan Potassium 50 MG Oral Tablet (Cozaar) TAKE 2 TABLETS BY MOUTH EVERY MORNING 60 Tablet 11 07/11/2022 Active Fluticasone Propionate 50 MCG/ACT Nasal Suspension Administer 1 [place] into nostril in the morning. 0 Active Propranolol HCl 10 MG Oral Tablet (Inderal)Indication s:Flushing Take 1 Tablet by mouth 4 times a day as needed for Anxiety or Other (flushing). 30 Tablet 5 09/17/2022 Active Amphetamine-Dextroa mphetamine 12.5 MG Oral Tablet [...] EVERY MORNING 30 Tablet 3 10/27/2022 Active Doxycycline Hyclate 100 MG Oral Capsule Take 1 Capsule by mouth in the morning and 1 Capsule in the evening. 14 Capsule 0 11/04/2022 11/11/2022 Active Doxycycline Hyclate 100 MG Oral Capsule Take 1 Capsule by mouth in the morning and 1 Capsule before bedtime. Do all this for 3 days. Until gone.. 6 Capsule 0 11/10/2022 11/13/2022 Active documented as of this encounter (statuses as of 11/10/2022) Active Problems Problem Noted Date Raynaud's disease without gangrene 09/06 Flushing 09/06/2022 Left wrist pain 09/06/2020 Attention deficit disorder (ADD) without hyperactivity 06/23/2017 Essential hypertension with goal blood p ressure less than 140/90 01/21/2016 Allergic rhinitis due to pollen 08/11/19 16 Food allergy 08/11/2015 documented as of this encounter (statuses as of 11/10/2022) Resolved Problems Problem Noted Date Resolved Date [...] as of this encounter (statuses as of 11/10/2022) Immunizations Name Administration Dates Next Due PPD [...] Office Visit Nephrology Tay Guerra MD [address] [place] [address] 01/11/2023 Office Visit Nephrology Tay Guerra MD [address] [place] [address] 03/09/2023 Office Visit Family Medicine Tsoha Vaca MD [address] [place] [id number] Pending Results Name Type Priority Associated Diagnoses Date /Time COMPREHENSIVE METABOLIC PANEL Lab Routine Anaplasmosis Hyponatremia 11/10/2022 2:07 PM EDT HEMOGLOBIN A1C Lab Routine Prediabetes 11/10/2022 2:07 PM EDT Health Maintenance Due Date Last [...] - Td or Tdap) 09/11/2023 09/10/2013 GFR 11/03/2023 11/02/2022, 04/0 07/2022, 07/11/2022, Additional history exists Albumin/Creatinine Ratio 04/12/2024 04/12/2021 Pap Smear 06/11/2024 06/11/2019, 08/28, 09/15/2016, Additional history exists Diabetes Screening 11/02/2025 11/02/2022, 0 08/01/2022, 07/11/2022, Additional history exists Lipid Panel 08/02/2027 08/01/2022, [...] Procedure Name Priority Date/Time Associated Diagnosis Comments DIFFERENTIAL, AUTOMATED Routine 11/10/2022 2:07 PM EDT Anaplasmosis Leukopenia, unspecified type Thrombocytopenia (HCC) CBC WITH WBC DIFFERENTIAL Routine 11/10/2022 2:07 PM EDT Anaplasmosis Leukopenia, unspecified type Thrombocytopenia (HCC) CBC Routine 11/10/2022 2:07 PM EDT Anaplasmosis Leukopenia, unspecified type Thrombocytopenia (HCC) documented in this encounter Results * (ABNORMAL) DIFFERENTIAL, AUTOMATED (11/10/2022 2:07 PM EDT) WBC 7.54 4.00 - 10.80 K/uL 11/10/2022 2:14 PM EDT [facility] [facility] Neutrophils % 42.3 40.0 - 75.0 % 11/10/2022 2:14 PM EDT [facility] [place] [facility] [facility] Lymphocytes % 41.9 18.0 - 42.0 % 11/10/2022 2:14 PM EDT [facility] [place] [facility] [facility] Monocytes % 11.4(H) 1.0 - 11.0 % 11/10/2022 2:14 PM EDT [facility] [facility] Eosinophils % 3.7 0.0 - 6.0 % 11/10/2022 2:14 PM EDT [facility] [place] [facility] [facility] Basophils % 0.7 0.0 - 2.0 % 11/10/2022 2:14 PM EDT [facility] [place] [facility] [facility] Absolute Neutrophils 3.19 1.80 - 7.70 K/uL 11/10/2022 2:14 PM EDT [facility] [place] [facility] [facility] Absolute Lymphocytes 3.16 1.00 - 4.80 K/ul 11/10/2022 2:14 PM EDT [facility] 57-10 Absolute Monocytes 0.86 0.00 - 1.10 K/uL 11/10/2022 2:14 PM EDT [facility] 57-10 Absolute Eosinophils 0.28 0.00 - 0.70 K/uL 11/10/2022 2:14 PM EDT [facility] 57-10 Absolute Basophils 0.05 0.00 - 0.20 K/uL 11/10/2022 2:14 PM EDT LAB[facility]10 Blood Venous blood specimen / Unknown Venipuncture / Unknown 11/10/2022 2:07 PM EDT 11/10/2022 2:07 PM EDT Edith Jarquin DO LAB BLOOD ORDERABLE S LAB[facility]ATORY [facility] [address] [place] [address] * (ABNORMAL) CBC (11/10/2022 2:07 PM EDT) WBC 7.54 4.00 - 10.80 K/uL 11/10/2022 2:14 PM EDT LAB[facility]ATORY [facility]10 RBC 4.40 3.85 - 5.15 M/uL 11/10/2022 2:14 PM EDT LAB[facility]ORY [place] [facility]10 HGB 11.8(L) 12.0 - 15.3 g/dL 11/10/2022 2:14 PM EDT LAB[facility] 57[facility]10 HCT 35.4(L) 36.0 - 45.2 % 11/10/2022 2:14 PM EDT LAB[facility]ATORY [facility]10 MCV 80.5 81.5 - 97.5 fL 11/10/2022 2:14 PM EDT LAB[facility] MCH 26.8 27.0 - 34.0 pg 11/10/2022 2:14 PM EDT LAB[facility]10 MCHC 33.3 32.0 - 36.0 g/dL 11/10/2022 2:14 PM EDT [facility] [place] [facility] RDW 18.0 11.5 - 15.5 % 11/10/2022 2:14 PM EDT [facility] [place] [facility] [facility] PLT 355 140 - 400 K/uL 11/10/2022 2:14 PM EDT [facility] [place] [facility] MPV 9.7 6.6 - 11.1 fL 11/10/2022 2:14 PM EDT [facility] [place] [facility] Blood Venous blood specimen / Unknown Venipuncture / Unknown 11/10/2022 2:07 PM EDT 11/10/2022 2:07 PM EDT Edith Jarquin DO LAB BLOOD ORDERABLE S [facility] [place] [address] documented in this encounter Visit Diagnoses Diagnosis Anaplasmosis Other ehrlichiosis Hyponatremia Hyposmolality and/or hyponatremia Leukopenia, unspecified type Thrombocytopenia (HCC) Thrombocytopenia, unspecified Prediabetes Other abnormal glucose documented in this encounter Care Teams Development Team Lead Relationship Specialty Start Date End Date Tosha Vaca MD [address] [place] [address] PCP - General Internal Medicine 09/06/22 documented as of this encounter
--- OUTSIDE RECORDS SUMMARY | 2023-04-17 21:28 | External Medical Summary | Summary of Care ---
Author Name Unknown Organization [facility] Address [address] [place] [address] Phone [phone] Care Team Providers Care Signal Constructor Name Role Phone Tosha Vaca MD Primary Care Provider Reason for Visit * Reason Onset Date Comments Advice 11/06/2022 Encounter Details Date Type Department Care Team Description 11/06/2022 Telephone Family Practice [facility] [address] [place] [address] Tosha Vaca MD [address] [place] [id number] Advice Allergies Active Allergy Reactions Severity Noted Date Comments Ciprofloxacin 10/11/2011 [place] Syrup 04/11/2013 Soy Allergy Nausea/vomiting 09/10/2013 Fatigue, Headache Wheat 09/10/2013 Headache, Fatigue documented as of this encounter (statuses as of 11/06/2022) Medications Medication Sig Dispensed Refills Start Date End Date Status Multi Vitamin Daily Oral Tablet Take by mouth . 0 Active Iron-Vitamin C 65-125 MG Oral Tablet Take 1 Tablet by mouth in the morning. 0 Active [place]-3 1000 MG Oral Capsule Take by mouth . 0 Active Vitamin D (Cholecalciferol) 50 MCG (1999 [place]) Oral Capsule Take by mouth . 0 Active Losartan Potassium 50 MG Oral Tablet (Cozaar) TAKE 2 TABLETS BY MOUTH EVERY MORNING 60 Tablet 11 07/11/2022 Active Fluticasone Propionate 50 MCG/ACT Nasal Suspension Administer 1 [place] into nostril in the morning. 0 Active [...] EVERY MORNING 30 Tablet 3 10/27/2022 Active Cefdinir 300 MG Oral Capsule (Omnicef)Indications :Gross hematuria,Fever, unspecified fever cause Take 1 Capsule by mouth in the morning and 1 Capsule before bedtime. Do all this for 7 days. For 10 days.. 14 Capsule 0 11/01/2022 11/08/2022 Active Doxycycline Hyclate 100 MG Oral Capsule Take 1 Capsule by mouth in the morning and 1 Capsule in the evening. 14 Capsule 0 11/04/2022 11/11/2022 Active documented as of this encounter (statuses as of 11/06/2022) Active Problems Problem Noted Date Raynaud's disease without gangrene 09/06 Flushing 09/06/2022 Left wrist pain 09/06/2020 Attention deficit disorder (ADD) without hyperactivity 06/23/2017 Essential hypertension with goal blood p ressure less than 140/90 01/21/2016 Allergic rhinitis due to pollen 08/11/19 16 Food allergy 08/11/2015 documented as of this encounter (statuses as of 11/06/2022) Resolved Problems Problem Noted Date Resolved Date [...] as of this encounter (statuses as of 11/06/2022) Immunizations Name Administration Dates Next Due PPD [...] encounter Miscellaneous Notes * Telephone Encounter - Cyndi Paniagua RN - 11/06/2022 4:02 PM EDT Pt aware * Telephone Encounter - Suresh Wayne MD - 11/06/2022 3:42 PM EDT Continue medications as prescribed until hospital follow up. Doxycycline is the correct antibiotic for anaplasmosis. If she's not having urinary symptoms and cultures were negative, she can stop the Cefdinir. * Telephone Encounter - Cyndi Paniagua RN - 11/06/2022 3:12 PM EDT Provider to address: pt was dc'd from [facility] over the weekend. She had been admitted with hyponatremia and febrile illness. 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 [facility] has her on Doxy BID until Sat. She would like to know if this is the appropriate abx for this. She is also still on cefdinir for a suspected UTI. Shehas since had two negative urine cultures. She would like to stop taking this if not needed. Reason for Call: Advice Contact: Telephone Call Contact Type: Advice Outcome: see above Face to face time spent with Patient (minutes): 0 Total Time including non face to face (minutes): 10 documented in this encounter Plan of Treatment Upcoming Encounters Date Type Specialty Care Team Description 11/10/2022 Office Visit Family Medicine Edith Jarquin DO [address] [place] [address] 01/11/2023 Office Visit Nephrology Tay Guerra MD [address] [place] [id number] 03/09/2023 Office Visit Family Medicine Tosha Vaca MD [address] [place] [address] Health Maintenance Due Date Last Done Comments [...] or Tdap) 09/11/2023 09/10/2013 GFR 11/03/2023 11/02/2022, 0407/2022, 07/11/2022, Additional history exists Albumin/Creatinine Ratio 04/12/2024 [...] filedocumented as of this encounter Care Teams Signal Constructor Relationship Specialty Start Date End Date Tosha Vaca MD [address] [place] [address] PCP - General Internal Medicine 09/06/22 documented as of this encounter
--- OUTSIDE RECORDS SUMMARY | 2023-04-17 21:28 | External Medical Summary | Summary of Care ---
Author Name Unknown Organization [facility] Address [address] [place] [address] Phone [phone] Care Team Providers Care Tile Designer Name Role Phone Tosha Vaca MD Primary Care Provider Reason for Visit * Reason Onset Date Comments Advice 11/06/2022 Encounter Details Date Type Department Care Team Description 11/06/2022 Telephone Family Practice [facility] [address] [place] [address] Tosha Vaca MD [address] [place] [address] Advice Allergies Active Allergy Reactions Severity Noted Date Comments Ciprofloxacin 10/11/2011 [place] Syrup 04/11/2013 Soy Allergy Nausea/vomiting 09/10/2013 Fatigue, Headache Wheat 09/10/2013 Headache, Fatigue documented as of this encounter (statuses as of 11/07/2022) Medications Medication Sig Dispensed Refills Start Date End Date Status Multi Vitamin Daily Oral Tablet Take by mouth . 0 Active Iron-Vitamin C 65-125 MG Oral Tablet Take 1 Tablet by mouth in the morning. 0 Active [place]-3 1000 MG Oral Capsule Take by mouth . 0 Active Vitamin D (Cholecalciferol) 50 MCG (1999 [place]) Oral Capsule Take by mouth . 0 Active Losartan Potassium 50 MG Oral Tablet (Cozaar) TAKE 2 TABLETS BY MOUTH EVERY MORNING 60 Tablet 11 07/11/2022 Active Fluticasone Propionate 50 MCG/ACT Nasal Suspension Administer 1 [place] into nostril in the morning. 0 Active [...] as of this encounter (statuses as of 11/07/2022) Active Problems Problem Noted Date Raynaud's disease without gangrene 09/06 Flushing 09/06/2022 Left wrist pain 09/06/2020 Attention deficit disorder (ADD) without hyperactivity 06/23/2017 Essential hypertension with goal blood p ressure less than 140/90 01/21/2016 Allergic rhinitis due to pollen 08/11/19 16 Food allergy 08/11/2015 documented as of this encounter (statuses as of 11/07/2022) Resolved Problems Problem Noted Date Resolved Date [...] as of this encounter (statuses as of 11/07/2022) Immunizations Name Administration Dates Next Due PPD [...] encounter Miscellaneous Notes * Telephone Encounter - Tosha Vcaa MD - 11/07/2022 12:59 PM EDT Noted, agree with DOD and thank you. * Telephone Encounter - Cyndi Paniagua RN [...] Provider to address: pt was dc'd from [facility] over the weekend. She had been admitted with hyponatremia and febrile illness. 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 [facility] has her on Doxy BID until Sat. [...] Date Type Specialty Care Team Description 11/10/2022 Imaging Radiology 11/10/2022 Imaging Radiology 11/10/2022 Office Visit Family Medicine Edith Jarquin DO [address] [place] [address] 01/11/2023 Office Visit Nephrology Tay Guerra MD [address] [place] [address] [place] [address] 03/09/2023 Office Visit Family Medicine Tosha Vaca MD [address] [place] [address] Health Maintenance Due Date Last Done Comments [...] or Tdap) 09/11/2023 09/10/2013 GFR 11/03/2023 11/02/2022, 04/07/2022, 07/11/2022, Additional history exists Albumin/Creatinine Ratio 04/12/2024 [...] filedocumented as of this encounter Care Teams Tile Designer Relationship Specialty Start Date End Date Tosha Vaca MD [address] [place] [address] PCP - General Internal Medicine 09/06/22 documented as of this encounter
--- OUTSIDE RECORDS SUMMARY | 2023-04-17 21:28 | External Medical Summary | Summary of Care ---
Author Name Unknown Organization [facility] Address [address] [place] [address] Phone [phone] Care Team Providers Care Tin Worker Name Role Phone Tosha Vaca MD Primary Care Provider Reason for Visit * Reason Onset Date Comments Hospital Follow-Up 11/06/2022 [facility] 11/04 Encounter Details Date Type Department Care Team Description 11/06/[address] [facility] [address] [facility] [address] Cyndi Paniagua, RN Hospital Follow-Up ([facility] 11/04) Allergies Active Allergy Reactions Severity Noted Date Comments Ciprofloxacin 10/11/2011 [place] Syrup 04/11/2013 Soy Allergy Nausea/vomiting 09/10/2013 Fatigue, Headache Wheat 09/10/2013 Headache, Fatigue documented as of this encounter (statuses as of 11/06/2022) Medications Medication Sig Dispensed Refills Start Date End Date Status Multi Vitamin Daily Oral Tablet Take by mouth . 0 Active Iron-Vitamin C 65-125 MG Oral Tablet Take 1 Tablet by mouth in the morning. 0 Active [place]-3 1000 MG Oral Capsule Take by mouth . 0 Active Vitamin D (Cholecalciferol) 50 MCG (2000 UT) Oral Capsule Take by mouth . 0 Active Losartan Potassium 50 MG Oral Tablet (Cozaar) TAKE 2 TABLETS BY MOUTH EVERY MORNING 60 Tablet 11 07/11/2022 Active Fluticasone Propionate 50 MCG/ACT Nasal Suspension Administer 1 [place] into nostril in the morning. 0 [...] Encounter - Cyndi Paniagua RN - 11/06/2022 3:16 PM EDT Transitions of Care Note Reason for Referral:Recent Admission Phone visit for follow up: JAQUELINE Admitted to: [facility], Date: 11/02 Discharged to: home, Date: 11/04 Diagnosis driving hospitalization: hyponatremia Febrile illness Source/Contact: Patient SUBJECTIVE Consent: Verbal consent for review of hospital discharge: Yes REVIEW OF SYSTEMS Patient/Other Reports: Current patient/caregiver problems or concerns: pt feels worn out still but knows this is to be expected. Has a question about an abx, separate TE sent CV: Denies problems Pulmonary: Denies problems Chills/Sweats/Fever:Denies chills/sweats Denies fever Appetite:not much of an appetite but trying to eat so she can take the Doxy Current diet: as before Bowel: denies problems Bladder: denies problems Wound (If applicable): N/A Pain:Denies Sleep:Denies problems FUNCTIONAL STATUS: ADL'S: Needs Assistance With:N/A as pt is independent IADL'S: Needs Assistance With:N/A as pt is independent Cognitive and Mental Health: denies problems, alert and oriented x 3 and able to communicate, understand instructions, process information. MEDICATION RECONCILIATION Medications: Discharge med list reviewed with patient or caregiver New medication(s) filled since hospitalization- Doxy Reports all medications taken as prescribed. Denies side effects OBJECTIVE ASSESSMENT Medication Risk Assessment: No risks identified Did patient fail outpatient treatment? Yes Discharge instructions available for review? Yes PLAN Symptom Monitoring Interventions:Member/caregiver education - signs and symptoms to contact PrimaryCare (DO NOT DELETE-Three vale symptoms patient is to report to PCP) 1. Fever 2. Muscle aches 3. N/V/D Toll Bridge OperatorAutomated Manufacturing Instructor of Care interventions/Action Plan: Medication reconciliation and 5 - 7 day follow-up with PCP in place - Date: 11/10/22 Educated on role of JAQUELINE completed with patient/caregiver. Educated patient/caregiver on patient right to have input on JAQUELINE plan of care. Verification of Home Health/DME if indicated: NO Identified Care Gaps: Yes Care Gaps closed this call: Appointment made or confirmed, Post discharge appointment and Transition of Care follow-up communication Re-evaluation of Plan of Care and progress towards goals achievement: Patient education this visit: Verbal, as above Plan to follow-up as previously scheduled, instructed to call Primary Care Provider with change in symptoms or as needed before next follow-up, discharge needs met, verbalizes understanding and agrees with plan. Cyndi Paniagua RN * Telephone Encounter - Cyndi Paniagua RN - 11/06/2022 1:56 PM EDT Transitions of Care Note Reason for Referral:Recent Admission Phone visit for follow up: JAQUELINE Admitted to: [facility], Date: 11/02 Discharged to: home, Date: 11/04 Diagnosis driving hospitalization: hyponatremia Febrile illness Message left for pt. If she reaches the call center please transfer her to id at [phone]. documented in this encounter Plan of Treatment Upcoming Encounters Date Type Specialty Care Team Description 11/10/2022 Office Visit Family Medicine Edith Jarquin DO [address] [place] [address] 01/11/2023 Office Visit Nephrology Tay Guerra MD [address] [place], [place] [address] [address] 03/09/2023 Office Visit Family Medicine Tosha Vaca MD [address] [place] [address] Health Maintenance Due Date Last Done Comments [...] filedocumented as of this encounter Care Teams Tin Worker Relationship Specialty Start Date End Date Tosha Vaca MD [address] [place] [address] PCP - General Internal Medicine 09/06/22 documented as of this encounter
--- OUTSIDE RECORDS SUMMARY | 2023-04-17 21:28 | External Medical Summary | Summary of Care ---
Author Name Unknown Organization [facility] Address [address] [place] [address] Phone [phone] Care Team Providers Care Chicken And Fish Cleaner Name Role Phone Tosha Vaca MD Primary Care Provider Reason for Visit * Reason Onset Date Comments Test Results 11/10/2022 Encounter Details Date Type Department Care Team Description 11/10/2022 Telephone Family Practice [facility] [address] [place] [address] Tosha Vaca MD [address] [employer] [place] [id number] Test Results Allergies Active Allergy Reactions Severity Noted Date Comments Ciprofloxacin 10/11/2011 [place] Syrup 04/11/2013 Soy Allergy Nausea/vomiting 09/10/2013 Fatigue, Headache Wheat 09/10/2013 Headache, Fatigue documented as of this encounter (statuses as of 11/13/2022) Medications Medication Sig Dispensed Refills Start Date End Date Status Multi Vitamin Daily Oral Tablet Take by mouth . 0 Active Iron-Vitamin C 65-125 MG Oral Tablet Take 1 Tablet by mouth in the morning. 0 Active [place]-3 1000 MG Oral Capsule Take by mouth . 0 Active Vitamin D (Cholecalciferol) 50 MCG (1999 UT) Oral Capsule Take by mouth . 0 Active Losartan Potassium 50 MG Oral Tablet (Cozaar) TAKE 2 TABLETS BY MOUTH EVERY MORNING 60 Tablet 11 07/11/2022 Active Fluticasone Propionate 50 MCG/ACT Nasal Suspension Administer 1 [place] into nostril in the morning. 0 Active [...] as of this encounter (statuses as of 11/13/2022) Active Problems Problem Noted Date Raynaud's disease without gangrene 09/06 [place] 09/06/2022 Left wrist pain 09/06/2020 Attention deficit disorder (ADD) without hyperactivity 06/23/2017 Essential hypertension with goal blood p ressure less than 140/90 01/21/2016 Allergic rhinitis due to pollen 08/11/19 16 Food allergy 08/11/2015 documented as of this encounter (statuses as of 11/13/2022) Resolved Problems Problem Noted Date Resolved Date [...] as of this encounter (statuses as of 11/13/2022) Immunizations Name Administration Dates Next Due PPD [...] encounter Miscellaneous Notes * Telephone Encounter - NISREEN Gómez - 11/13/2022 9:53 AM EDT Pt informed via MyG. * Telephone Encounter - MALIK Serra - 11/10/2022 4:53 PM EDT Who is Requesting Test Results: Pt Primary Care Provider : Tosha Vaca MD Tests Results Requested : Lab Date of Test : 11/10 Location of Test: [place] Ordering Provider: PCP Callback Number: [phone] Patient has been made aware that the turnaround time for test results are typically as follows: Laboratory results = within 2 days Urine Cultures = within 2-3 days depending on growth within the culture Pathology results (biopsy results/PAP) = 1-2 weeks Radiology results = within 1 week Cologuard results = within 2 weeks from the shipment date COVID testing = results are on average 7 days documented in this encounter Plan of Treatment Upcoming Encounters Date Type Specialty Care Team Description 11/16/2022 Office Visit Nephrology Tay Guerra MD [address] [place] [address] 01/11/2023 Office Visit Nephrology Tay Guerra MD [address] [place] [address] 03/09/2023 Office Visit Family Medicine Tosha Vaca MD [address] [facility] [place] [address] Health Maintenance Due Date Last Done Comments [...] filedocumented as of this encounter Care Teams Chicken And Fish Cleaner Relationship Specialty Start Date End Date Tosha Vaca MD [address] [place] [address] PCP - General Internal Medicine 09/06/22 documented as of this encounter
--- OUTSIDE RECORDS SUMMARY | 2023-04-17 21:28 | External Medical Summary ---
Author Name Unknown Address Unknown Organization [id number]:[facility]ORY [facility] - [address] [place] [address] Laboratory Report Ordering Provider Test Date Status ERNIE CHILDRESS 11/02/2022 14:13:05 Final Observation Date Value Abnormality Reference (Units ) Status Borrelia burgdorferi IgG and IgM [Interpretation] in Serum by Immunoassay 11/02/2022 14:13:05 Negative Negative Final Performing Location [facility] - [address] [place] [address]
--- OUTSIDE RECORDS SUMMARY | 2023-04-17 21:28 | External Medical Summary ---
Author Name Unknown Address Unknown Organization [id number] [address] [place] [address] Laboratory Report Ordering Provider Test Date Status LULU CORLEY 11/16/2022 08:58:03 Final Observation Date Value Abnormality Reference (Units ) Status WBC, Total 11/16/2022 08:58:03 5.64 4.00-10.8 0 (K/uL) Final RBC 11/16/2022 08:58:03 4.03 3.85-5.15 (M/uL) Final Hemoglobin 11/16/2022 08:58:03 10.7 Below low normal 12 .0-15.3 (g/dL) Final HCT 11/16/2022 08:58:03 32.6 Below low normal 36. 0-45.2 (%) Final MCV 11/16/2022 08:58:03 80.9 81.5-97.5 (fL) Final MCH 11/16/2022 08:58:03 26.6 27.0-34.0 (pg) Final MCHC 11/16/2022 08:58:03 32.8 32.0-36.0 (g/dL) Final RDW 11/16/2022 08:58:03 17.5 11.5-15.5 (%) Final Platelets 11/16/2022 08:58:03 278 140-400 (K /uL) Final MPV 11/16/2022 08:58:03 10.7 6.6-11.1 ( fL) Final Performing Location [facility] - [address] [place] [address]
--- OUTSIDE RECORDS SUMMARY | 2023-04-17 21:28 | External Medical Summary | Summary of Care ---
Author Name Unknown Organization [facility] Address [address] [place] [address] Phone [phone] Care Team Providers Care Small Engine Specialist Name Role Phone Tosha Vaca MD Primary Care Provider Encounter Details Date Type Department Care Team Description [facility] [address] [place] [address] Enrique Pino PA-C [address] [place] [address] Allergies Active Allergy Reactions Severity Noted Date Comments Ciprofloxacin 10/11/2011 [place] Syrup 04/11/2013 Soy Allergy Nausea/vomiting 09/10/2013 Fatigue, Headache Wheat 09/10/2013 Headache, Fatigue documented as of this encounter (statuses as of 11/02/2022) Medications Medication Sig Dispensed Refills Start Date End Date Status Multi Vitamin Daily Oral Tablet Take by mouth . 0 Active Iron-Vitamin C 65-125 MG Oral Tablet Take 1 Tablet by mouth in the morning. 0 Active [place]-3 1000 MG Oral Capsule Take by mouth . 0 Active Vitamin D (Cholecalciferol) 50 MCG (1999 UT) Oral Capsule Take by mouth . 0 Active Losartan Potassium 50 MG Oral Tablet (Cozaar) TAKE 2 TABLETS BY MOUTH EVERY MORNING 60 Tablet 11 07/11/2022 Active Fluticasone Propionate 50 MCG/ACT Nasal Suspension Administer 1 [place] into nostril in the morning. 0 Active [...] days.. 14 Capsule 0 11/01/2022 11/08/2022 Active documented as of this encounter (statuses as of 11/02/2022) Active Problems Problem Noted Date Raynaud's disease without gangrene 09/06 [place]ushing 09/06/2022 Left wrist pain 09/06/2020 Attention deficit disorder (ADD) without hyperactivity 06/23/2017 Essential hypertension with goal blood p ressure less than 140/90 01/21/2016 Allergic rhinitis due to pollen 08/11/19 16 Food allergy 08/11/2015 documented as of this encounter (statuses as of 11/02/2022) Resolved Problems Problem Noted Date Resolved Date [...] as of this encounter (statuses as of 11/02/2022) Immunizations Name Administration Dates Next Due PPD [...] encounter Miscellaneous Notes * Telephone Encounter - Enrique Pino PA-C - 11/02/2022 6:46 PM EDT Called patient to review results: 1. COVID and strep negative. 2. While Microscopic urinalysis showed RBC, WBC, and bacteria, the urine cx was negative. 3. WBC was low at 1.84, Platelets low at 87, Sodium low at 128, chloride low at 89. 4. Kidney function was surprisingly normal. 5. Liver function normal. Patient notes today she was feeling a little better on cefdinir. CARPENTER was improved, but she has been getting what she describes as "electric shocks" to neck, jaw, and head and feeling of episodic "timewarps." She thinks it may be quick jolts of dizziness. Still nauseated, with diarrhea, and febrile. For moderate, (suspected symptomatic) hyponatremia, and hypochloremia, leukopenia and thrombocytopenia, with no clear etiology, recommend further work- up and management at ER and to contact police surgeon. Tick-borne panel still pending. US and KUB still pending. Patient aware, verbalized understanding. Will go to ER. LYNNE Pineda documented in this encounter Plan of Treatment Upcoming Encounters Date Type Specialty Care Team Description 01/11/2023 Office Visit Nephrology Tay Guerra MD [address] [place] [id number] 03/09/2023 Office Visit Family Medicine Tosha Vaca MD [address] [place] [address] Health Maintenance Due Date Last Done Comments [...] filedocumented as of this encounter Care Teams Small Engine Specialist Relationship Specialty Start Date End Date Tosha Vaca MD [address] [place] [address] PCP - General Internal Medicine 09/06/22 documented as of this encounter
--- OUTSIDE RECORDS SUMMARY | 2023-04-17 21:28 | External Medical Summary ---
Author Name Unknown Address Unknown Organization [id number]:[facility] - [address] [place] [address] Laboratory Report Ordering Provider Test Date Status LULU CORLEY 11/16/2022 08:58:03 Final Observation Date Value Abnormality Reference (Units ) Status SYNC LEUKOCYTES IN BLOOD BY AUTOMATED COUNT 11/16/2022 08:58:03 5.64 4.00-10.80 (K/uL) Final Segs 11/16/2022 08:58:03 50.0 40.0-75.0 (%) Final Lymphs % 11/16/2022 08:58:03 36.5 18.0-42.0 (%) Final Monos 11/16/2022 08:58:03 10.5 1.0-11.0 (%) Final Eosinophils 11/16/2022 08:58:03 2.3 0.0-6.0 (%) Final Basos 11/16/2022 08:58:03 0.7 0.0-2.0 (%) Final Absolute Segs 11/16/2022 08:58:03 2.82 1.80-7.70 (K/uL) Final Lymphs, absolute 11/16/2022 08:58:03 2.06 1.00-4.80 (K/ul) Final Monos, Abs 11/16/2022 08:58:03 0.59 0.00-1.10 (K/uL) Final Eos, Abs 11/16/2022 08:58:03 0.13 0.00-0.70 (K/uL) Final Basos, Abs 11/16/2022 08:58:03 0.04 0.00-0.20 (K/uL) Final Performing Location [facility] 0 - [address] [place] [address]
--- OUTSIDE RECORDS SUMMARY | 2023-04-17 21:28 | External Medical Summary ---
Author Name Unknown Address Unknown Organization [id number]:LAB[facility]ATORY [facility] - [address] [place] [address] Laboratory Report Ordering Provider Test Date Status LULU CORLEY 11/16/2022 08:58:03 Final Observation Date Value Abnormality Reference (Units ) Status Albumin 11/16/2022 08:58:03 4.0 3.8-5.0 (g/dL) Final AST (Aspartate aminotransferase) 11/16/2022 08:58:03 25 10-35 (U/L) Final Alk Phos 11/16/2022 08:58:03 58 35-130 (U/L) Final ALT (Alanine aminotransferase) 11/16/2022 08:58:03 97 Above high normal 10-35 (U/L) Final Bilirubin, Total 11/16/2022 08:58:03 1.0 <=1.2 (mg/dL) Final Bilirubin, Direct 11/16/2022 08:58:03 <0.2 0.0-0.3 (mg/dL) Final Protein 11/16/2022 08:58:03 6.5 6.0-8.3 (g/dL) Final Performing Location LABORATORY [facility] 0 - [address] [place] [address]
--- OUTSIDE RECORDS SUMMARY | 2023-04-17 21:28 | External Medical Summary ---
Author Name Unknown Address Unknown Organization K01:LAB[facility]ATORY [facility] - [address] [facility] [address] Laboratory Report Ordering Provider Test Date Status ERNIE CHILDRESS 11/02/2022 14:13:05 Final Observation Date Value Abnormality Reference (Units) Status Pathologist review of results 11/02/2022 14:13:05 RBC: Slight anisocytosis and microcytosis Final Pathologist review of results 11/02/2022 14:13:05 WBC: Leukopenia. Rare reactive lymphocytes and myelocytes noted. Final Pathologist review of results 11/02/2022 14:13:05 PLT: Moderately decreased. Rare large platelet noted Final Pathologist review of results 11/02/2022 14:13:05 Final Pathologist review of results 11/02/2022 14:13:05 Impression: 1. Leukopenia and thrombocytopenia. Cannot determine etiology from this smear. Peripheral sequestration or destruction of cellular elements is a consideration. Consider viral titers. Final Pathologist review of results 11/02/2022 14:13:05 2. Slight microcytosis and a normal hemoglobin, cannot exclude a congenital red cell abnormality (thalassemia, etc) Final Performing Location [facility]ORY [facility] - [address] [facility] [address]
--- OUTSIDE RECORDS SUMMARY | 2023-04-17 21:28 | External Medical Summary ---
Author Name Unknown Address Unknown Organization : Laboratory Report Ordering Provider Test Date Status ERNIE CHILDRESS 11/02/2022 14:13:05 Final Observation Date Value Abnormality Reference (Units ) Status Anaplasma phagocytophilum DNA [Presence] in Blood by DILSHAD with probe detection 11/02/2022 14:13:05 Detected Abnormal Not Detected Final This test was developed and its analytical performance
characteristics have been determined by [employer] [place], [place]. It has
not been cleared or approved by the U.S. Food and Drug
Administration. This assay has been validated pursuant
to the CLIA regulations and is used for clinical
purposes.

Test Performed at:
[facility]
[address]
[place] [address]
Tee Diaz M.D., Ph.D.,Director of Laboratories Performing Location
--- OUTSIDE RECORDS SUMMARY | 2023-04-17 21:28 | External Medical Summary | Summary of Care ---
Author Name Unknown Organization [facility] Address [address] [facility] [address] Phone [phone] Care Team Providers Care Directory Carrier Name Role Phone Tosha Vaca MD Primary Care Provider Reason for Visit * Reason Onset Date Comments Hospital Follow-Up Pt being seen for hospital f/u for toxoplasmosis, has low energy at present and some dizziness but that is better Hospital Follow-Up 11/10/2022 Encounter Details Date Type Department Care Team Description 11/10/2022 Office Visit Family Practice [facility] [address] [place] [address] Edith Nix DO [address] [place] [phone] Hospital discharge follow-up*; Anaplasmosis; Hyponatremia; Leukopenia, unspecified type; Thrombocytopenia (HCC); Prediabetes Allergies Active Allergy Reactions Severity Noted Date Comments Ciprofloxacin 10/11/2011 [place] Syrup 04/11/2013 Soy Allergy Nausea/vomiting 09/10/2013 Fatigue, Headache Wheat 09/10/2013 Headache, Fatigue documented as of this encounter (statuses as of 11/10/2022) Medications Medication Sig Dispensed Refills Start Date End Date Status Multi Vitamin Daily Oral Tablet Take by mouth . 0 Active Iron-Vitamin C 65-125 MG Oral Tablet Take 1 Tablet by mouth in the morning. 0 Active [place]-3 1000 MG Oral Capsule Take by mouth . 0 Active Vitamin D (Cholecalciferol) 50 MCG (1999 UT) Oral Capsule Take by mouth . 0 Active Losartan Potassium 50 MG Oral Tablet (Cozaar) TAKE 2 TABLETS BY MOUTH EVERY MORNING 60 Tablet 11 07/11/2022 Active Fluticasone Propionate 50 MCG/ACT Nasal Suspension Administer 1 [place] into nostril in the morning. 0 Active [...] Sign Reading Time Taken Comments Blood Pressure 120/88 11/10/2022 1:37 PM EDT Pulse 65 11/10/2022 1:37 PM EDT Temperature 36.8 C (98.2 F) 11/10/2022 1:37 PM ED T Respiratory Rate 16 11/10/2022 1:37 PM EDT Oxygen Saturation - - Inhaled Oxygen Concentration - - Weight 76.7 kg (169 lb) 11/10/2022 1:37 PM EDT Height - - Body Mass Index 27.28 07/24/2022 2:00 PM EDT documented in this encounter Progress Notes * Edith Nix, DO - 11/10/2022 1:51 PM EDT Subjective: Eve Early is a 42 year old female. Chief Complaint Patient presents with Hospital Follow-Up Pt being seen for hospital f/u for toxoplasmosis, has low energy at present and some dizziness but that is better Hospital Follow-Up There are no exam notes on file for this visit. HPI: This is a 42 year old female with PMHx as below presents with hospital follow up Pt was seen [facility] 11/01 -dx with ? UTI Admitted 11/03-8 had CARPENTER, fever, chills, myalgia Noted leukopenia, thrombocytopenia, hyponatremia Is est with nephrology - will try to get sooner appt for HD follow up Labs ordered for repeat today VSS Health Maintenance Due Topic Date Due Hepatitis B (1 of 3 - 3-dose series) Never done HIV Screening Never done Hepatitis C Screening Never done COVID-19 Vaccine (3 - Pfizer series) 09/13/2020 Depression Screening, Annual for Pts 12 and Over 07/21/2021 Patient Active Problem List Diagnosis Code Allergic [...] 1 Tablet by mouth in the morning. [place]-3 1000 MG Oral Capsule Take by mouth . Vitamin D (Cholecalciferol) 50 MCG (1999) Oral Capsule Take by mouth . Losartan Potassium 50 MG Oral Tablet (Cozaar) TAKE 2 TABLETS BY MOUTH EVERY MORNING 60 Tablet 11 Methylphenidate HCl ER (CD) 30 MG Oral Capsule Extended Release Take 1 Capsule by mouth in the morning. 30 Capsule 0 Indapamide 1.25 MG Oral Tablet TAKE 1 TABLET BY MOUTH EVERY MORNING 30 Tablet 3 Doxycycline Hyclate 100 MG Oral Capsule Take 1 Capsule by mouth in the morning and 1 Capsule inthe evening. 14 Capsule 0 Fluticasone Propionate 50 MCG/ACT Nasal Suspension Administer 1 [place] into nostril in the morning. Propranolol HCl 10 MG Oral Tablet (Inderal) Take 1 Tablet by mouth 4 times a day as needed for Anxiety or Other (flushing). 30 Tablet 5 Amphetamine-Dextroamphetamine 12.5 MG Oral Tablet (Adderall) Take 1 Tablet by mouth in the morning and 1 Tablet before bedtime. (Patient not taking: Reported on 11/10/2022) 60 Tablet 0 No current facility-administered medications for this visit. Past Medical History: Diagnosis Date Attention deficit disorder (ADD) without hyperactivity 06/23/2017 Essential hypertension with goal blood pressure less than 140/90 01/21/2016 Food allergy 08/11/2015 NO KNOWN PROBLEMS Past Surgical History: Procedure Laterality Date DENTAL SURGERY PROCEDURE NEC Review of patient's allergies indicates: Allergen Reactions Ciprofloxacin [place] Syrup Soy Allergy Nausea/vomiting Fatigue, Headache Wheat [...] on file Housing Stability: Not on file Review of Systems: As per HPI all other ROS negative. Wt Readings from Last 3 Encounters: 11/10/22 76.7 kg (169 lb) 09/06/22 75.8 kg (167 lb) 07/24/22 77 kg (169 lb 12.8 oz) Results for orders placed or performed in visit on 11/02/22 COMPREHENSIVE METABOLIC PANEL Result Value Ref Range BUN 14 6 - 20 mg/dL Creatinine 1.0 0.5 - 1.0 mg/dL Estimated Glomerular Filtration Rate 77 >=60 mL/min Sodium 128 (L) 135 - 146 mmol/L Potassium 3.7 3.5 - 5.1 mmol/L Chloride 89 (L) 98 - 107 mmol/L CO2 28 22 - 32 mmol/L Anion Gap 11 7 - 15 mmol/L Glucose 107 70 - 120 mg/dL Albumin 3.9 3.8 - 5.0 g/dL AST 33 10 - 35 U/L Alkaline Phosphatase 57 35 - 130 U/L Bilirubin, Total 0.6 <=1.2 mg/dL Calcium 9.3 8.4 - 10.2 mg/dL Protein 7.0 6.0 - 8.3 g/dL ALT 21 10 - 35 U/L ANAPLASMA PHAGOCYTOPHILUM DNA, QL REAL-TIME PCR Result Value Ref Range A.Phagocytophilum, DNA, PCR Detected (A) Not Detected LYME DISEASE ANTIBODY SCREEN Result Value Ref Range Lyme Disease Antibody Screen Negative Negative CBC Result Value Ref Range WBC 1.84 (L) 4.00 - 10.80 K/uL RBC 4.92 3.85 - 5.15 M/uL HGB 13.2 12.0 - 15.3 g/dL HCT 38.1 36.0 - 45.2 % MCV 77.4 81.5 - 97.5 fL MCH 26.8 27.0 - 34.0 pg MCHC 34.6 32.0 - 36.0 g/dL RDW 17.4 11.5 - 15.5 % PLT 87 (L) 140 - 400 K/uL MPV DIFFERENTIAL, TECHNOLOGIST REVIEW Result Value Ref Range WBC 1.84 (L) 4.00 - 10.80 K/uL Neutrophils % 60.0 40.0 - 75.0 % Lymphocytes % 18.0 18.0 - 42.0 % Monocytes % 19.0 (H) 1.0 - 11.0 % Eosinophils % 2.0 0.0 - 6.0 % Metamyelocytes % 1.0 (H) <=0.0 % Absolute Neutrophils 1.10 (L) 1.80 - 7.70 K/uL Absolute Lymphocytes 0.33 (L) 1.00 - 4.80 K/uL Absolute Monocytes 0.35 0.00 - 1.10 K/uL Absolute Eosinophils 0.04 0.00 - 0.70 K/uL Absolute Metamyelocytes 0.02 (H) <=0.00 K/uL Reactive Lymphocytes Present (A) None Seen PATHOLOGIST SLIDE REVIEW Result Value Ref Range Pathologist Slide Review RBC: Slight anisocytosis and microcytosis WBC: Leukopenia. Rare reactive lymphocytes and myelocytes noted. PLT: Moderately decreased. Rare large platelet noted Impression: 1. Leukopenia and thrombocytopenia. Cannot determine etiology from this smear. Peripheral sequestration or destruction of cellular elements is a consideration. Consider viral titers. 2. Slight microcytosis and a normal hemoglobin, cannot exclude a congenital red cell abnormality (thalassemia, etc) OBJECTIVE: Physical Exam: BP 120/88 | Pulse 65 | Temp 36.8 C (98.2 F) (Tympanic) | Resp 16 | Wt 76.7 kg (169 lb) | BMI 27.28 kg/m | BSA 1.89 m General: alert, healthy and no distress Heart: regular rate & rhythm, no murmur and no gallops Lungs: lungs clear to auscultation Abdomen: abdomen soft, non-tender, normal bowel sounds and no masses or organomegaly Hospital discharge follow-up (Primary) - DISCH MED RECON CUR MED LIS Anaplasmosis - COMPREHENSIVE METABOLIC PANEL; Future; Expected date: 11/10/2022 - CBC WITH WBC DIFFERENTIAL; Future; Expected date: 11/10/2022 Hyponatremia - COMPREHENSIVE METABOLIC PANEL; Future; Expected date: 11/10/2022 Leukopenia, unspecified type - CBC WITH WBC DIFFERENTIAL; Future; Expected date: 11/10/2022 Thrombocytopenia (HCC) - CBC WITH WBC DIFFERENTIAL; Future; Expected date: 11/10/2022 Prediabetes - HEMOGLOBIN A1C; Future; Expected date: 11/10/2022 Other orders - Doxycycline Hyclate 100 MG Oral Capsule; Take 1 Capsule by mouth in the morning and 1 Capsule before bedtime. Do all this for 3 days. Until gone.. Follow-up: Return if symptoms worsen or fail to improve. | Check-out note: Recent admission to [facility]- needs HD appt with nephrology - currently 12/2022 but that was for a routine 6 mo [place] niraj Nix DO documented in this encounter Plan of Treatment Upcoming Encounters Date Type Specialty Care Team Description 11/10/2022 Laboratory Laboratory Tye Villavicencio [address] [place] [address] Anaplasmosis; Hyponatremia; Leukopenia, unspecified type; Thrombocytopenia (HCC); Prediabetes 11/16/2022 Office Visit Nephrology Tay Guerra MD [address] [place] [address] 01/11/2023 Office Visit Nephrology Tay Guerra MD [address] [place] [address] 03/09/2023 Office Visit Family Medicine Tosha Vaca MD [address] [place] [address] Pending Results Name Type Priority Associated Diagnoses Date /Time COMPREHENSIVE METABOLIC PANEL Lab Routine Anaplasmosis Hyponatremia 11/10/2022 2:07 PM EDT HEMOGLOBIN A1C Lab Routine Prediabetes 11/10/2022 2:07 PM EDT Scheduled Orders Name Type Priority Associated Diagnoses Orde r Schedule COMPREHENSIVE METABOLIC PANEL Lab Routine Anaplasmosis Hyponatremia Expected: 11/10/2022 (Approximate), Expires: 11/10/2023 HEMOGLOBIN A1C Lab Routine Prediabetes Expected: 11/10/2022 (Approximate), Expires: 11/10/2023 Health Maintenance Due Date Last Done Comments [...] as of this encounter Visit Diagnoses Diagnosis Hospital discharge follow-up- Primary Other follow-up examination Anaplasmosis Other ehrlichiosis Hyponatremia Hyposmolality and/or hyponatremia Leukopenia, unspecified type Thrombocytopenia (HCC) Thrombocytopenia, unspecified Prediabetes Other abnormal glucose Anaplasmosis Other ehrlichiosis Hyponatremia Hyposmolality and/or hyponatremia Leukopenia, unspecified type Thrombocytopenia (HCC) Thrombocytopenia, unspecified Prediabetes Other abnormal glucose documented in this encounter Care Teams Directory Carrier Relationship Specialty Start Date End Date Tosha Vaca MD [address] [facility] [place] [address] PCP - General Internal Medicine 09/06/22 documented as of this encounter"
--- OUTSIDE RECORDS SUMMARY | 2023-04-17 21:28 | External Medical Summary | Summary of Care ---
Author Name Unknown Organization [facility] Address [address] [place] [address] Phone [phone] Care Team Providers Care Special Procedure Tech Name Role Phone Tosha Vaca MD Primary Care Provider Encounter Details Date Type Department Care Team Description 11/10/2022 Orders Only Family Practice [facility] [address] [place] [address] Edith Jarquin DO [address] [place] [phone] Anemia, unspecified type* Allergies Active Allergy Reactions Severity Noted Date Comments Ciprofloxacin 10/11/2011 [place] Syrup 04/11/2013 Soy Allergy Nausea/vomiting 09/10/2013 Fatigue, Headache Wheat 09/10/2013 Headache, Fatigue documented as of this encounter (statuses as of 11/10/2022) Medications Medication Sig Dispensed Refills Start Date End Date Status Multi Vitamin Daily Oral Tablet Take by mouth . 0 Active Iron-Vitamin C 65-125 MG Oral Tablet Take 1 Tablet by mouth in the morning. 0 Active [place]-3 1000 MG Oral Capsule Take by mouth . 0 Active Vitamin D (Cholecalciferol) 50 MCG (1999 UT) Oral Capsule Take by mouth . 0 Active Losartan Potassium 50 MG Oral Tablet (Cozaar) TAKE 2 TABLETS BY MOUTH EVERY MORNING 60 Tablet 11 07/11/2022 Active Fluticasone Propionate 50 MCG/ACT Nasal Suspension Administer 1 [place] into nostril in the morning. 0 Active [...] Specialty Care Team Description 11/16/2022 Office Visit NephTay Lee MD [address] [place] [address] 01/11/2023 Office Visit NephTay Lee MD [address] [place] [address] 03/09/2023 Office Visit Family Medicine Tosha Vaca MD [address] [place] [address] Scheduled Orders Name Type Priority Associated Diagnoses Orde r Schedule IRON SCREEN, INCLUDING TIBC Lab Routine Anemia, unspecified type Expected: 11/10/2022 (Approximate), Expires: 11/10/2023 VITAMIN B12 Lab Routine Anemia, unspecified type Expected: 11/10/2022 (Approximate), Expires: 11/10/2023 FERRITIN Lab Routine Anemia, unspecified type Expected: 11/10/2022 (Approximate), Expires: 11/10/2023 Health Maintenance [...] this encounter Visit Diagnoses Diagnosis Anemia, unspecified type- Primary documented in this encounter Care Teams Special Procedure Tech Relationship Specialty Start Date End Date Tosha Vaca MD [address] [place] [address] PCP - General Internal Medicine 09/06/22 documented as of this encounter
--- OUTSIDE RECORDS SUMMARY | 2023-04-17 21:28 | External Medical Summary ---
Author Name Unknown Address Unknown Organization K01:[facility] - [address] [place] [address] Laboratory Report Ordering Provider Test Date Status LULU CORLEY 11/10/2022 14:07:04 Final Observation Date Value Abnormality Reference (Units ) Status Vitamin B12 11/10/2022 14:07:04 [phone] (pg/mL) Final Performing Location [facility] - [address] [place] [address]
--- OUTSIDE RECORDS SUMMARY | 2023-04-17 21:28 | External Medical Summary | Summary of Care ---
Author Name Unknown Organization [facility] Address [address] [place] [address] Phone [phone] Care Team Providers Care Shuttle Route Vehicle Operator Name Role Phone Tosha Vaca MD Primary Care Provider Encounter Details Date Type Department Care Team Description [facility] [address] [facility] [place] [address] Enrique Pino PA-C [address] [place] [address] Allergies Active Allergy Reactions Severity Noted Date Comments Ciprofloxacin 10/11/2011 [place] Syrup 04/11/2013 Soy Allergy Nausea/vomiting 09/10/2013 Fatigue, Headache Wheat 09/10/2013 Headache, Fatigue documented as of this encounter (statuses as of 11/10/2022) Medications Medication Sig Dispensed Refills Start Date End Date Status Multi Vitamin Daily Oral Tablet Take by mouth . 0 Active Iron-Vitamin C 65-125 MG Oral Tablet Take 1 Tablet by mouth in the morning. 0 Active [place]-3 1000 MG Oral Capsule Take by mouth . 0 Active Vitamin D (Cholecalciferol) 50 MCG (1999 UT) Oral Capsule Take by mouth . 0 Active Losartan Potassium 50 MG Oral Tablet (Cozaar) TAKE 2 TABLETS BY MOUTH EVERY MORNING 60 Tablet 11 07/11/2022 Active Fluticasone Propionate 50 MCG/ACT Nasal Suspension Administer 1 [place] into nostril in the morning. 0 Active [...] Telephone Encounter - Enrique Pino PA-C - 11/10/2022 8:18 PM EDT Contact patient on MyG to review results, with following message: 1. No definite kidney stone noted on the Xray. 2. On the Xray, there is a small, 2mm calcification in the pelvis seen on Xray that is likely benign. These are called pleboliths. However, if we are suspicious of a kidney stone/ureter stone, a CT scan is the next step. 3. On the US, there is minimal dilation of the tubes that drain into the bladder. This could be from a stone, infection, or reflux (your body's leaky valves in this region). 4. The US also shows "questionable patchy regions" in the kidneys, which could be just how you are,artifact, or related to infection. Are you continuing to improve? If not, I think we should do a contrast-enhanced CT scan of the abdomen/pelvis and see about getting you in sooner with nephrology and/or urology. Let me know how you're feeling tomorrow and how you'd like to proceed over the weekend/into next week. documented in this encounter Plan of Treatment Upcoming Encounters Date Type Specialty Care Team Description 11/16/2022 Office Visit Nephrology Tay Guerra MD [address] [place] [address] 01/11/2023 Office Visit Nephrology Tay Guerra MD [address] [place] [address] 03/09/2023 Office Visit Family Medicine Tosha Vaca MD [address] [facility] [place] [address] Health Maintenance Due Date Last Done Comments Hepatitis B (1 of 3 - 3-dose series) 1980 HIV Screening 07/08/1995 Hepatitis C Screening 1998 COVID-19 Vaccine (3 - Pfizer series) 09/13/2020 07/19/2020, 06/28/2020 Depression Screening, Annual for Pts 12 and Over 07/21/2021 07/21/2020 Influenza Vaccine (FLU shot) (#1) 2022 01/10/2020, 03/22/2019, 03/22/2019, Additional history exists Mammogram 08/02/2023 08/01/2022, 03/2 12/2020, 09/29/2016 DTaP,Tdap,and Td Vaccines (2 - Td or Tdap) 09/11/2023 09/10/2013 GFR 11/11/2023 11/10/2022, 07/0 09/2022, 08/01/2022, Additional history exists Albumin/Creatinine Ratio 04/12/2024 04/12/2021 Pap Smear 06/11/2024 06/11/2019, 08/28, 09/15/2016, Additional history exists Diabetes Screening 11/10/2025 11/10/2022, 0 11/02/2022, 08/01/2022, Additional history exists Lipid Panel 08/02/2027 08/01/2022, [...] filedocumented as of this encounter Care Teams Shuttle Route Vehicle Operator Relationship Specialty Start Date End Date Tosha Vaca MD [address] [place] [address] PCP - General Internal Medicine 09/06/22 documented as of this encounter
--- OUTSIDE RECORDS SUMMARY | 2023-04-17 21:28 | External Medical Summary ---
Author Name Unknown Address Unknown Organization K0G:[facility] - [address] [place] [address] Laboratory Report Ordering Provider Test Date Status LULU CORLEY 11/10/2022 14:07:04 Final Observation Date Value Abnormality Reference (Units ) Status SYNC LEUKOCYTES IN BLOOD BY AUTOMATED COUNT 11/10/2022 14:07:04 7.54 4.00-10.80 (K/uL) Final Segs 11/10/2022 14:07:04 42.3 40.0-75.0 (%) Final Lymphs % 11/10/2022 14:07:04 41.9 18.0-42.0 (%) Final Monos 11/10/2022 14:07:04 11.4 Above high normal 1.0-11.0 (%) Final Eosinophils 11/10/2022 14:07:04 3.7 0.0-6.0 (%) Final Basos 11/10/2022 14:07:04 0.7 0.0-2.0 (%) Final Absolute Segs 11/10/2022 14:07:04 3.19 1.80-7.70 (K/uL) Final Lymphs, absolute 11/10/2022 14:07:04 3.16 1.00-4.80 (K/ul) Final Monos, Abs 11/10/2022 14:07:04 0.86 0.00-1.10 (K/uL) Final Eos, Abs 11/10/2022 14:07:04 0.28 0.00-0.70 (K/uL) Final Basos, Abs 11/10/2022 14:07:04 0.05 0.00-0.20 (K/uL) Final Performing Location [facility] - [address] [place] [address]
--- OUTSIDE RECORDS SUMMARY | 2023-04-17 21:29 | External Medical Summary ---
Author Name Unknown Address Unknown Organization K01:LAB[facility]ATORY [facility] - [address] [place] [id number] Laboratory Report Ordering Provider Test Date Status ERNIE CHILDRESS 11/01/2022 18:21:17 Final Observation Date Value Abnormality Reference (Units) Status Bacteria identified in Unspecified specimen by Culture 11/01/2022 18:21:17 No significant growth Final Test: Culture, Urine, Quanti tative
Specimen Source: Urine, Clean Catch
Specimen Type: Urine
Specimen Date: 11/01/2022 6:21 PM
Result Date: 11/02/2022 5:50 PM
Result Status: Final result
Resulting Lab: LAB[facility]ATORY [facility]
[address]
[facility] [address]

CULTURE

No significant growth

null Performing Location LABORATORY [facility] - [address] [facility] [address]
--- OUTSIDE RECORDS SUMMARY | 2023-04-17 21:29 | External Medical Summary | Summary of Care ---
Author Name Unknown Organization [facility] Address [address] [place] [address] Phone [phone] Care Team Providers Care Environmental Services Lead Name Role Phone Tosha Vaca MD Primary Care Provider Reason for Visit * Reason Onset Date Comments Advice 11/01/2022 Encounter Details Date Type Department Care Team Description 11/01/2022 Telephone Nephrology, [address] [address] Services, Scheduling [address] [place] [address] Advice Allergies Active Allergy Reactions Severity Noted Date Comments Ciprofloxacin 10/11/2011 [place] Syrup 04/11/2013 Soy Allergy Nausea/vomiting 09/10/2013 Fatigue, Headache Wheat 09/10/2013 Headache, Fatigue documented as of this encounter (statuses as of 11/01/2022) Medications Medication Sig Dispensed Refills Start Date End Date Status Multi Vitamin Daily Oral Tablet Take by mouth . 0 Active Iron-Vitamin C 65-125 MG Oral Tablet Take 1 Tablet by mouth in the morning. 0 Active [place]-3 1000 MG Oral Capsule Take by mouth . 0 Active Vitamin D (Cholecalciferol) 50 MCG (2000 UT) Oral Capsule Take by mouth . 0 Active Losartan Potassium 50 MG Oral Tablet (Cozaar) TAKE 2 TABLETS BY MOUTH EVERY MORNING 60 Tablet 11 07/11/2022 Active Fluticasone Propionate 50 MCG/ACT Nasal Suspension (Flonase) Administer 1 [place] into nostril in the morning. 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 She states she has not had any sick contacts recently and has not discussed these symptoms with her PCP. 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 She denies any painful urination. She is planning to be seen at urgent care later this afternoon. FWd to Dr. Guerra and PCP. * Telephone Encounter - MALIK Aguilar - 11/01/2022 9:37 AM EDT Pt called and said she has been sick since Sunday evening, October 30 and wants to know if there is anything she should be taking or doing. She is complaining of fever of around 102, blood in her urine, light nausea, achy, light diarrhea yesterday, October 31. Thank you [facility] Scheduling Services documented in this encounter Plan of Treatment Upcoming Encounters Date Type Specialty Care Team Description 01/11/2023 Office Visit Nephrology Tay Guerra MD [address] [place] [address] 03/09/2023 Office Visit Family Medicine Tosha Vaca MD [address] [place] [address] Health Maintenance Due Date Last Done Comments Hepatitis B (1 of 3 - 3-dose series) 1980 HIV Screening 07/08/1995 Hepatitis C Screening 1998 COVID-19 Vaccine (3 - Pfizer series) 09/13/2020 07/19/2020, 06/28/2020 Depression Screening, Annual for Pts 12 and Over 07/21/2021 07/21/2020 Influenza Vaccine (FLU shot) (#1) 2022 01/10/2020, 03/22/2019, 03/22/2019, Additional history exists GFR 08/02/2023 08/01/2022, 06/28, 08/05/2021, Additional history exists Mammogram 08/02/2023 08/01/2022, 06/29, 09/29/2016 DTaP,Tdap,and Td Vaccines (2 - Td or Tdap) 09/11/2023 09/10/2013 Albumin/Creatinine Ratio 04/12/2024 04/12/2021 Pap Smear 06/11/2024 06/11/2019, 08/28, 09/15/2016, Additional history exists Diabetes Screening 08/01/2025 08/01/2022, 0 07/11/2022, 08/05/2021, Additional history exists Lipid Panel 08/02/2027 08/01/2022, [...] filedocumented as of this encounter Care Teams Environmental Services Lead Relationship Specialty Start Date End Date Tosha Vaca MD [address] [place] [address] PCP - General Internal Medicine 09/06/22 documented as of this encounter
--- OUTSIDE RECORDS SUMMARY | 2023-04-17 21:29 | External Medical Summary ---
Author Name Unknown Address Unknown Organization [id number]:[facility] [place] [facility] [address] [facility] [address] [facility] [address] Laboratory Report Ordering Provider Test Date Status ERNIE CHILDRESS 11/01/2022 19:06:04 Final Observation Date Value Abnormality Reference (Units) Status Streptococcus pyogenes DNA [Presence] in Throat by DILSHAD with probe detection 11/01/2022 19:06:04 Negative. No Group A Streptococcus detected by PCR (amplified probe). Negative Final This test was developed and its performance characteristics determined by [email or web address]. It has not been cleared or approved by the FDA. The laboratory is regulated under CLIA as qualified to perform high- complexity testing. This test is used for clinical purposes. It should not be regarded as investigational or for research. Performing Location [facility] [place] [address] [facility] [address]
--- OUTSIDE RECORDS SUMMARY | 2023-04-17 21:29 | External Medical Summary ---
Author Name Unknown Address Unknown Organization [id number]:LABORATORY [facility] [place] - [address] [place] [address] Laboratory Report Ordering Provider Test Date Status ERNIE CHILDRESS 11/01/2022 18:20:56 Final Observation Date Value Abnormality Reference (Units ) Status RBC, Urine 11/01/2022 18:20:56 50+ Abnormal 0-2 (/HPF) Final WBC, Urine 11/01/2022 18:20:56 10-19 Abnormal 0-2 (/HPF) Final Bacteria [#/area] in Urine sediment by Microscopy high power field 11/01/2022 18:20:56 26-50 Abnormal 0-25 (/HPF) Final Performing Location LABORATORY [facility] - [address] [place] [address]
--- OUTSIDE RECORDS SUMMARY | 2023-04-17 21:29 | External Medical Summary ---
Author Name Unknown Address Unknown Organization [id number]:[facility]ATORY [facility] - [address] [place] [address] Laboratory Report Ordering Provider Test Date Status ERNIE CHILDRESS 11/02/2022 14:13:05 Final Observation Date Value Abnormality Reference (Units ) Status BUN 11/02/2022 14:13:05 14 6-20 (mg/dL) Final Creatinine 11/02/2022 14:13:05 1.0 0.5-1.0 (mg/dL) Final Glomerular filtration rate/1.73 sq M.predicted [Volume Rate/Area] in Serum, Plasma or Blood by Creatinine-based formula (CKD-EPI) 11/02/2022 14:13:05 77 >=60 (mL/min) Final eGFR is calculated based on the CKD-EPI 2020 equation SODIUM 11/02/2022 14:13:05 128 Below low normal 135 -146 (mmol/L) Final Potassium 11/02/2022 14:13:05 3.7 3.5-5.1 (m mol/L) Final Cl 11/02/2022 14:13:05 89 Below low normal 98- 107 (mmol/L) Final CO2 11/02/2022 14:13:05 28 22-32 (mmo l/L) Final Anion gap 11/02/2022 14:13:05 11 7-15 (mmol /L) Final Glucose 11/02/2022 14:13:05 107 70-120 (mg /dL) Final Albumin 11/02/2022 14:13:05 3.9 3.8-5.0 (g /dL) Final AST (Aspartate aminotransferase) 11/02/2022 14:13:05 33 10-35 (U/L) Fin al Alk Phos 11/02/2022 14:13:05 57 35-130 (U/ L) Final Bilirubin, Total 11/02/2022 14:13:05 0.6 <=1 .2 (mg/dL) Final Calcium 11/02/2022 14:13:05 9.3 8.4-10.2 ( mg/dL) Final Protein 11/02/2022 14:13:05 7.0 6.0-8.3 (g /dL) Final ALT (Alanine aminotransferase) 11/02/2022 14:13:05 21 10-35 (U/L) Anibal gayle Performing Location LABORATORY [place] [facility] - [address] [facility] [address]
--- OUTSIDE RECORDS SUMMARY | 2023-04-17 21:29 | External Medical Summary | Summary of Care ---
Author Name Unknown Organization [facility] Address [address] [place] [address] Phone [phone] Care Team Providers Care Manager Primary Care Name Role Phone Tosha Vaca MD Primary Care Provider Reason for Visit * Reason Comments eRx-Medication Refill Encounter Details Date Type Department Care Team Description 10/24/2022 Refill Nephrology, [address] [address] Emmy Crews MD [address] [place] [address] Allergies Active Allergy Reactions Severity Noted Date Comments Ciprofloxacin 10/11/2011 [place] Syrup 04/11/2013 Soy Allergy Nausea/vomiting 09/10/2013 Fatigue, Headache Wheat 09/10/2013 Headache, Fatigue documented as of this encounter (statuses as of 10/27/2022) Medications Medication Sig Dispensed Refills Start Date End Date Status Multi Vitamin Daily Oral Tablet Take by mouth . 0 Active Iron-Vitamin C 65-125 MG Oral Tablet Take 1 Tablet by mouth in the morning. 0 Active [place]-3 1000 MG Oral Capsule Take by mouth . 0 Active Vitamin D (Cholecalciferol) 50 MCG (2000 UT) Oral Capsule Take by mouth . 0 Active Losartan Potassium 50 MG Oral Tablet (Cozaar) TAKE 2 TABLETS BY MOUTH EVERY MORNING 60 Tablet 11 07/11/2022 Active Fluticasone Propionate 50 MCG/ACT Nasal Suspension (Flonase) Administer 1 [place] into nostril in the morning. 0 Active [...] EVERY MORNING 30 Tablet 3 10/27/2022 Active Indapamide 1.25 MG Oral Tablet Take 1 Tablet by mouth in the morning. 30 Tablet 3 07/11/2022 3 Discontinue d(Refill) documented as of this encounter (statuses as of 10/27/2022) Active Problems Problem Noted Date Raynaud's disease without gangrene 09/06 Flushing 09/06/2022 Left wrist pain 09/06/2020 Attention deficit disorder (ADD) without hyperactivity 06/23/2017 Essential hypertension with goal blood p ressure less than 140/90 01/21/2016 Allergic rhinitis due to pollen 08/11/19 16 Food allergy 08/11/2015 documented as of this encounter (statuses as of 10/27/2022) Resolved Problems Problem Noted Date Resolved Date [...] as of this encounter (statuses as of 10/27/2022) Immunizations Name Administration Dates Next Due PPD [...] encounter Miscellaneous Notes * Telephone Encounter - Emmy Crews MD - 10/27/2022 10:53 AM EDTSigned Prescriptions: Disp Refills Indapamide 1.25 MG Oral Tablet 30 Tab*3 Sig: TAKE 1 TABLET BY MOUTH EVERY MORNING Authorizing Provider: EMMY CREWS * Telephone Encounter - Yessica Freed CPhT - 10/26/2022 8:24 AM EDTPending Prescriptions: Disp Refills Indapamide 1.25 MG Oral Tablet [Pharmacy M*30 Tab*3 Sig: TAKE 1 TABLET BY MOUTH EVERY MORNING * Telephone Encounter - Yessica Freed CPhT - 10/26/2022 8:21 AM EDT Did you pend patient's preferred pharmacy and medication before forwarding?yes Pharmacy: [id number] [place] Pending Prescriptions: Disp Refills Indapamide 1.25 MG Oral Tablet [Pharmacy *30 Tab*3 Sig: TAKE 1 TABLET BY MOUTH EVERY MORNING Last Visit: 07/11/2022 (in office), Visit date not found (telemedicine) Next Visit: 01/11/2023 If no future appointments scheduled, and last appointment is greater than a year ago, please schedule patient for a follow-up appointment Last date the medication was ordered: 07.11.22 Is this request for a controlled substance?No Urine Drug Screen:No results found for this or any previous visit. Patient Phone Numbers Labs: Lab Results Component Value Date/Time CREAT 0.8 08/01/2022 07:51 AM CREAT 0.8 03/22/2019 10:26 AM POTASSIUM 4.1 08/01/2022 07:51 AM POTASSIUM 4.3 03/22/2019 10:26 AM TSH 3.90 08/01/2022 07:51 AM TSH 2.70 2019 09:20 AM LDLCALC 96 08/01/2022 07:51 AM LDLCALC 99 01/22/2016 10:14 AM LDLDIRECT NOT APPLICABLE 01/22/2016 10:14 AM ALT 8 (L) 08/01/2022 07:51 AM ALT 6 (L) 06/23/2017 10:20 AM HGBA1C 5.4 10/21/2013 03:45 PM documented in this encounter Plan of Treatment Upcoming Encounters Date Type Specialty Care Team Description 01/11/2023 Office Visit Nephrology Emmy Crews MD [address] [place] [address] 03/09/2023 Office Visit Family Medicine Tosha Vaca MD [address] [facility] [place] [address] Health Maintenance Due Date Last Done Comments Hepatitis B (1 of 3 - 3-dose series) 1980 HIV Screening 07/08/1995 Hepatitis C Screening 1998 COVID-19 Vaccine (3 - Pfizer series) 09/13/2020 07/19/2020, 06/28/2020 Depression Screening, Annual for Pts 12 and Over 07/21/2021 07/21/2020 Influenza Vaccine (FLU shot) (Season Ended) 2022 01/10/2020, 03/22/2019, 03/22/2019, Additional history exists [...] as of this encounter Care Teams Manager Primary Care Relationship Specialty Start Date End Date Tosha Vaca MD [address] [place] [address] PCP - General Internal Medicine 09/06/22 documented as of this encounter
--- OUTSIDE RECORDS SUMMARY | 2023-04-17 21:29 | External Medical Summary | Summary of Care ---
Author Name Unknown Organization [facility] Address [address] [place] [address] Phone [phone] Care Team Providers Care Fare Register Repairer Name Role Phone Tosha Vaca MD Primary Care Provider Reason for Visit * Reason Onset Date Comments Advice 11/01/2022 Encounter Details Date Type Department Care Team Description 11/01/2022 Telephone Nephrology, [address] [address] Services, Scheduling [address] [place] [address] Advice Allergies Active Allergy Reactions Severity Noted Date Comments Ciprofloxacin 10/11/2011 [place] Syrup 04/11/2013 Soy Allergy Nausea/vomiting 09/10/2013 Fatigue, Headache Wheat 09/10/2013 Headache, Fatigue documented as of this encounter (statuses as of 11/02/2022) Medications Medication Sig Dispensed Refills Start Date End Date Status Multi Vitamin Daily Oral Tablet Take by mouth . 0 Active Iron-Vitamin C 65-125 MG Oral Tablet Take 1 Tablet by mouth in the morning. 0 Active [place]-3 1000 MG Oral Capsule Take by mouth . 0 Active Vitamin D (Cholecalciferol) 50 MCG (2000 UT) Oral Capsule Take by mouth . 0 Active Losartan Potassium 50 MG Oral Tablet (Cozaar) TAKE 2 TABLETS BY MOUTH EVERY MORNING 60 Tablet 11 07/11/2022 Active Fluticasone Propionate 50 MCG/ACT Nasal Suspension Administer 1 [place] into nostril in the morning. 0 Active [...] Miscellaneous Notes * Telephone Encounter - Tosha Vaca MD - 11/02/2022 9:42 AM EDT Noted, agree with urgent care. * Telephone Encounter - Guillaume Valles MD - 11/01/2022 1:25 PM EDT Agree w/urgent care eval today. * Telephone Encounter - Gilda Ojeda RN [...] Office Visit Nephrology Tay Guerra MD [address] [place] [address] 03/09/2023 Office Visit Family Medicine Tosha Vaca MD [address] [facility] [place] [address] Health Maintenance Due Date Last Done Comments [...] filedocumented as of this encounter Care Teams Fare Register Repairer Relationship Specialty Start Date End Date Tosha Vaca MD [address] [facility] [place] [address] PCP - General Internal Medicine 09/06/22 documented as of this encounter
--- OUTSIDE RECORDS SUMMARY | 2023-04-17 21:29 | External Medical Summary | Summary of Care ---
Author Name Unknown Organization [facility] Address [address] [place] [address] Phone [phone] Care Team Providers Care Supply Cataloguer Name Role Phone Tosha Vaca MD Primary Care Provider Reason for Visit * Reason Onset Date Comments Advice 11/01/2022 Encounter Details Date Type Department Care Team Description 11/01/2022 Telephone Nephrology, [address] [address] Services, Scheduling [address] [place] [address] Advice Allergies Active Allergy Reactions Severity Noted Date Comments Ciprofloxacin 10/11/2011 [place] Syrup 04/11/2013 Soy Allergy Nausea/vomiting 09/10/2013 Fatigue, Headache Wheat 09/10/2013 Headache, Fatigue documented as of this encounter (statuses as of 11/01/2022) Medications Medication Sig Dispensed Refills Start Date End Date Status Multi Vitamin Daily Oral Tablet Take by mouth . 0 Active Iron-Vitamin C 65-125 MG Oral Tablet Take 1 Tablet by mouth in the morning. 0 Active [place]-3 1000 MG Oral Capsule Take by mouth . 0 Active Vitamin D (Cholecalciferol) 50 MCG (2000 UT) Oral Capsule Take by mouth . 0 Active Losartan Potassium 50 MG Oral Tablet (Cozaar) TAKE 2 TABLETS BY MOUTH EVERY MORNING 60 Tablet 11 07/11/2022 Active Fluticasone Propionate 50 MCG/ACT Nasal Suspension (Flonase) Administer 1 [place] into nostril in the morning. 0 Active [...] encounter Miscellaneous Notes * Telephone Encounter - Guillaume Valles MD [...] Office Visit Nephrology Tay Guerra MD [address] [place] [address] 03/09/2023 Office Visit Family Medicine Tosha Vaca MD [address] [facility] [place] [address] Health Maintenance Due Date Last Done Comments [...] filedocumented as of this encounter Care Teams Supply Cataloguer Relationship Specialty Start Date End Date Tosha Vaca MD [address] [place] [address] PCP - General Internal Medicine 09/06/22 documented as of this encounter
--- OUTSIDE RECORDS SUMMARY | 2023-04-17 21:29 | External Medical Summary | Summary of Care ---
Author Name Unknown Organization [facility] Address [address] [place] [address] Phone [phone] Care Team Providers Care Applications Support Specialist Name Role Phone Tosha Vaca MD Primary Care Provider Reason for Visit * Reason Onset Date Comments Advice 11/01/2022 Encounter Details Date Type Department Care Team Description 11/01/2022 Telephone Nephrology, [address] [address] Services, Scheduling [address] [place] [address] Advice Allergies Active Allergy Reactions Severity Noted Date Comments Ciprofloxacin 10/11/2011 [place] Syrup 04/11/2013 Soy Allergy Nausea/vomiting 09/10/2013 Fatigue, Headache Wheat 09/10/2013 Headache, Fatigue documented as of this encounter (statuses as of 11/01/2022) Medications Medication Sig Dispensed Refills Start Date End Date Status Multi Vitamin Daily Oral Tablet Take by mouth . 0 Active Iron-Vitamin C 65-125 MG Oral Tablet Take 1 Tablet by mouth in the morning. 0 Active [place]-3 1000 MG Oral Capsule Take by mouth . 0 Active Vitamin D (Cholecalciferol) 50 MCG (2000 UT) Oral Capsule Take by mouth . 0 Active Losartan Potassium 50 MG Oral Tablet (Cozaar) TAKE 2 TABLETS BY MOUTH EVERY MORNING 60 Tablet 11 07/11/2022 Active Fluticasone Propionate 50 MCG/ACT Nasal Suspension (Flonase) Administer 1 [place] into nostril in the morning. 0 Active [...] Miscellaneous Notes * Telephone Encounter - MALIK Aguilar - [...] Office Visit Nephrology Tay Guerra MD [address] [place] [address] 03/09/2023 Office Visit Family Medicine Tosha Vaca MD [address] [place] [address] Health Maintenance Due Date Last Done Comments [...] filedocumented as of this encounter Care Teams Applications Support Specialist Relationship Specialty Start Date End Date Tosha Vaca MD [address] [place] [id number] PCP - General Internal Medicine 09/06/22 documented as of this encounter
[2023-04-17] MEDS: BENZONATATE 100 MG CAPSULE PO SCH (21:41)
[2023-04-18] MEDS: ACETAMINOPHEN 325 MG TAB PO PRN ×3 (01:13→10:26)
--- NOTE | 2023-04-18 07:51 | Hospitalist Progress Note ---
Date of Service April 18, 2023 Assessment & Plan (1) Mycoplasma pneumonia: (2) Acute hyponatremia: (3) Essential hypertension with goal blood pressure less than 140/90: (4) IgA nephropathy: Plan This is a 42-year-old female who has significant past medical history of HTN, Raynaud's disease, flushing, IgA nephropathy and ADHD who presents to ED secondary to cough times few days. Her outpatient records were reviewed. Mycoplasma Pneumonia received IV Azithromycin 500mg in ED as well as 2gIV ceftriaxone continue with azithromycin -> switch to PO as pt would like to be discharged supportive care with nebs, anti tussives, prn analgesia supplemental o2 if needed, but right now O2 saturations are adequate Acute hyponatremia Acute hypokalemia likely 2/2 poor intake - improved now repleted potassium obtained serum osm, urine na, urine osm received IVF on admission Hold losartan for now Elevated LFTS AST 48, ALT 53 -> 90, 94 no abd pain repeat as outpt, if still elevated -> consider OP US HTN hold amlodipine and losartan for now due to lack of po intake and bp currently adequate resume as able - recommend to hold for next 2 days after discharge - monitor BP at home if able IGA nephropathy follows [facility] protein/blood noted in urine ADHD only takes adderal while working hld for now DVT ppx: SQ Lovenox, encourage ambulation Dispo: med/surg, plan to dc home FULL CODE PCP: Lio Admission and Anticipated Discharge Date Admission Date: April 17, 2023 Subjective Pt seen in follow up of pna Sitting up in bed in NAD, + cough Feels improved but continues to have a cough She is not requiring oxygen No chest pain or shortness of breath She interested in being discharged from hospital Review of Systems Review of Systems: All systems reviewed & are unremarkable except as noted in Subjective Physical Exam Physical Exam: Constitutional: WD/WN, F in NAD, + cough, on RA Head: Normocephalic, Atraumatic Eyes: PERRL, conjunctivae normal, anicteric sclerae ENMT: external ear and nose normal, oropharynx normal Neck: normal visual inspection Respiratory: normal respiratory effort, + mild rhonchi at LLB, no wheezing. Normal insp/exp effort, no accessory muscle use Cardiovascular: RRR, no murmur, no edema Vessels: no JVD or carotid bruit Chest: normal inspection of chest Abdomen: normal bowel sounds, soft, nontender Musculoskeletal: extremities motor strength 5/5 Skin: no rashes, warm and dry Neurologic: PERRL, EOMI, no face palsy, no dysarthria, moves all extremities Psychiatric: A+Ox3, euthymic affect Results & Data Results & Data Vital Signs (Past 12 Hours) Vital Signs Temp Pulse Resp BP BP Pulse Ox O2 Del Method 04/17/23 22:50 Room Air 04/17/23 21:41 Room Air 04/17/23 21:41 37.8 C H 97 H 18 142/80 H 95 Room Air 04/17/23 20:10 95 04/17/23 20:00 139/82 95 Room Air 04/17/23 19:50 97 Laboratory Results 04/18/23 04/17/23 04/17/23 Range/Units 07:31 14:50 14:45 WBC 4.82 (4.8-10.8) K/ul RBC 3.91 L (4.20-5.40) M/uL Hgb 10.2 L (12.0-16.0) g/dl Hct 29.9 L (37.0-47.0) % MCV 76.5 L (80.0-100.0) fL MCH 26.1 (25.0-34.0) pg MCHC 34.1 (32.0-36.0) g/dL RDW Std Deviation 50.6 H (36.4-46.3) fL RDW Coeff of [place] 18.3 H (11.5-14.5) % Plt Count 152 (130-400) K/uL MPV 10.4 (9.4-12.4) fL Immature Gran % (Auto) 0.6 % Neut % (Auto) 68.6 % Lymph % (Auto) 17.0 % [place] % (Auto) 12.4 % Eos % (Auto) 0.8 % Baso % (Auto) 0.6 % Neut # (Auto) 3.30 (1.40-6.50) K/uL Lymph # (Auto) 0.82 L (1.20-3.40) K/uL [place] # (Auto) 0.60 H (0.11-0.59) K/uL Eos # (Auto) 0.04 (0.00-0.50) K/uL Baso # (Auto) 0.03 (0.00-0.20) K/uL Immature Gran # (Auto) 0.03 (0.01-0.20) K/uL Sodium 135 L (136-145) mmol/L Potassium 3.7 (3.5-5.1) mmol/L Chloride 105 (98-107) mmol/L Carbon Dioxide 26 (21-32) mmol/L Anion Gap 4 (3-11) BUN 8 (6-23) mg/dl Creatinine 0.73 (0.6-1.2) mg/dl Est Cr Clr Drug Dosing 105.9 ml/min Est GFR ( Amer) 117.7 ml/min Est GFR (Non-Af Amer) 101.6 ml/min BUN/Creatinine Ratio 11.0 (10-20) Glucose 99 (70-99(Fasting)) mg/dl Osmolality 268 L (280-300) mOsm/kg Calcium 8.4 L (8.6-10.3) mg/dl Phosphorus 3.0 (2.5-4.9) mg/dl Magnesium 1.9 (1.7-2.4) mg/dl Total Bilirubin 0.4 (0.2-1.0) mg/dl AST 90 H (13-39) U/L ALT 94 H (7-52) U/L Alkaline Phosphatase 59 (34-104) U/L Total Protein 5.7 L (6.0-8.3) gm/dl Albumin 3.1 L (3.4-5.0) gm/dl Globulin 2.6 (2.5-4.0) gm/dl Albumin/Globulin Ratio 1.2 (0.9-2) Urine Color [place] Urine Appearance Clear (Clear) Urine pH 6.0 (4.5-7.5) Ur Specific [place] 1.006 (1.000-1.030) Urine Protein Trace H (Negative) Urine Glucose (UA) Negative (Negative) Urine Ketones Negative (Negative) Urine Blood 3+ H (Negative) Urine Nitrite Negative (Negative) Urine Bilirubin Negative (Negative) Urine Urobilinogen Negative (Negative) Ur Leukocyte Esterase Trace H (Negative) Urine WBC (Auto) 1-5 (0-5) /hpf Urine RBC (Auto) >30 H (0-4) /hpf U Hyaline Cast (Auto) 1-5 (0-5) /lpf U Epithel Cells (Auto) 20-30 H (0-5) /lpf Urine Bacteria (Auto) Negative (Negative) Urine Osmolality 130 L (500-800) mOsm/kg Ur Random Sodium < 10 mmol/L Adenovirus (PCR) (NotDetected) B. pertussis DNA (PCR) (NotDetected) B.parapertussis DNA PCR (NotDetected) C. pneumoniae DNA (PCR) (NotDetected) Coronavirus OC43 (PCR) (NotDetected) Coronavirus HKU1 (PCR) (NotDetected) Coronavirus 229E (PCR) (NotDetected) SARS-CoV-2 (PCR) (NotDetected) Coronavirus NL63 (PCR) (NotDetected) Human Metapneumovir PCR (NotDetected) Influenza Type A (PCR) (NotDetected) Influenza Type B (PCR) (NotDetected) M. pneumoniae (PCR) (NotDetected) Parainfluenza 1 (PCR) (NotDetected) Parainfluenza 2 (PCR) (NotDetected) Parainfluenza 3 (PCR) (NotDetected) Parainfluenza 4 (PCR) (NotDetected) RSV (PCR) (NotDetected) Entero/Rhino (PCR) (NotDetected) 04/17/23 04/17/23 Range/Units 14:44 14:35 WBC 6.12 (4.8-10.8) K/ul RBC 4.28 (4.20-5.40) M/uL Hgb 11.1 L (12.0-16.0) g/dl Hct 33.0 L (37.0-47.0) % MCV 77.1 L (80.0-100.0) fL MCH 25.9 (25.0-34.0) pg MCHC 33.6 (32.0-36.0) g/dL RDW Std Deviation 50.4 H (36.4-46.3) fL RDW Coeff of Gary 17.8 H (11.5-14.5) % Plt Count 172 (130-400) K/uL MPV 10.8 (9.4-12.4) fL Immature Gran % (Auto) 0.7 % Neut % (Auto) 76.9 % Lymph % (Auto) 10.1 % [place] % (Auto) 11.6 % Eos % (Auto) 0.2 % Baso % (Auto) 0.5 % Neut # (Auto) 4.71 (1.40-6.50) K/uL Lymph # (Auto) 0.62 L (1.20-3.40) K/uL [place] # (Auto) 0.71 H (0.11-0.59) K/uL Eos # (Auto) 0.01 (0.00-0.50) K/uL Baso # (Auto) 0.03 (0.00-0.20) K/uL Immature Gran # (Auto) 0.04 (0.01-0.20) K/uL Sodium 128 L (136-145) mmol/L Potassium 3.3 L (3.5-5.1) mmol/L Chloride 96 L (98-107) mmol/L Carbon Dioxide 24 (21-32) mmol/L Anion Gap 8 (3-11) BUN 12 (6-23) mg/dl Creatinine 0.88 (0.6-1.2) mg/dl Est Cr Clr Drug Dosing 87.8 ml/min Est GFR ( Amer) 93.9 ml/min Est GFR (Non-Af Amer) 81.0 ml/min BUN/Creatinine Ratio 13.6 (10-20) Glucose 115 H (70-99(Fasting)) mg/dl Osmolality (280-300) mOsm/kg Calcium 8.7 (8.6-10.3) mg/dl Phosphorus (2.5-4.9) mg/dl Magnesium (1.7-2.4) mg/dl Total Bilirubin 0.4 (0.2-1.0) mg/dl AST 48 H (13-39) U/L ALT 53 H (7-52) U/L Alkaline Phosphatase 67 (34-104) U/L Total Protein 6.7 (6.0-8.3) gm/dl Albumin 3.6 (3.4-5.0) gm/dl Globulin 3.1 (2.5-4.0) gm/dl Albumin/Globulin Ratio 1.2 (0.9-2) Urine Color Urine Appearance (Clear) Urine pH (4.5-7.5) Ur Specific [place] (1.000-1.030) Urine Protein (Negative) Urine Glucose (UA) (Negative) Urine Ketones (Negative) Urine Blood (Negative) Urine Nitrite (Negative) Urine Bilirubin (Negative) Urine Urobilinogen (Negative) Ur Leukocyte Esterase (Negative) Urine WBC (Auto) (0-5) /hpf Urine RBC (Auto) (0-4) /hpf U Hyaline Cast (Auto) (0-5) /lpf U Epithel Cells (Auto) (0-5) /lpf Urine Bacteria (Auto) (Negative) Urine Osmolality (500-800) mOsm/kg Ur Random Sodium mmol/L Adenovirus (PCR) Not Detected (NotDetected) B. pertussis DNA (PCR) Not Detected (NotDetected) B.parapertussis DNA PCR Not Detected (NotDetected) C. pneumoniae DNA (PCR) Not Detected (NotDetected) Coronavirus OC43 (PCR) Not Detected (NotDetected) Coronavirus HKU1 (PCR) Not Detected (NotDetected) Coronavirus 229E (PCR) Not Detected (NotDetected) SARS-CoV-2 (PCR) Not Detected (NotDetected) Coronavirus NL63 (PCR) Not Detected (NotDetected) Human Metapneumovir PCR Not Detected (NotDetected) Influenza Type A (PCR) Not Detected (NotDetected) Influenza Type B (PCR) Not Detected (NotDetected) M. pneumoniae (PCR) DETECTED A* (NotDetected) Parainfluenza 1 (PCR) Not Detected (NotDetected) Parainfluenza 2 (PCR) Not Detected (NotDetected) Parainfluenza 3 (PCR) Not Detected (NotDetected) Parainfluenza 4 (PCR) Not Detected (NotDetected) RSV (PCR) Not Detected (NotDetected) Entero/Rhino (PCR) Not Detected (NotDetected) Medications Administered Current Inpatient Medications Acetaminophen (Acetaminophen 325 Mg Tab) 650 mg PO Q4H PRN PRN Reason: pain/fever Stop: 05/17/23 20:38 Last Admin: 04/18/23 06:19 Dose: 650 mg Al Hydrox/Mg Hydrox/Simethicone (Aluminum/Magnesium Susp 30 Ml Udc) 30 ml PO Q6H PRN PRN Reason: Dyspepsia Stop: 05/17/23 20:38 Albuterol (Albuterol 0.083% Nebu Soln 3 Ml Vial) 2.5 mg NEB Q6R PRN; Protocol PRN Reason: sob/wheezing Stop: 05/17/23 20:38 Benzonatate (Benzonatate 100 Mg Capsule) 100 mg PO TID JAIME Stop: 05/17/23 20:59 Last Admin: 04/17/23 21:41 Dose: 100 mg Enoxaparin Sodium (Enoxaparin Inj 40 Mg/0.4 Ml Syr) 40 mg SQ HS JAIME Stop: 05/17/23 20:59 Last Admin: 04/17/23 22:03 Dose: 40 mg Guaifenesin (Guaifenesin 600 Mg Tabcr) 600 mg PO Q12 PRN PRN Reason: cough Stop: 05/17/23 20:38 Last Admin: 04/18/23 06:17 Dose: 600 mg Guaifenesin/Codeine Phosphate (Guaifenesin/Codeine 100mg/10mg 5ml Udc) 10 ml PO HS PRN PRN Reason: cough Stop: 05/17/23 20:59 Last Admin: 04/17/23 22:04 Dose: 10 ml Azithromycin 500 mg/ Dextrose 255 mls @ 125 mls/hr IV Q24H JAIME Stop: 04/25/23 17:59 Magnesium Hydroxide (Magnesium Hydroxide Susp 30 Ml Udc) 30 ml PO Q6H PRN PRN Reason: Constipation Stop: 05/17/23 20:38 Multivitamins (Multivitamin Tab) 1 tab PO DAILY JAIME Stop: 05/18/23 08:59 Ondansetron HCl (Ondansetron Inj 2 Mg/Ml 2 Ml Vial) 4 mg IV Q6H PRN PRN Reason: Nausea Stop: 05/17/23 20:38 Polyethylene Glycol (Polyethylene (Miralax) 17 Gm Pack) 17 gm PO DAILY PRN PRN Reason: Constipation Stop: 05/17/23 20:38 (1) Mycoplasma pneumonia Laterality: left Lung location: lower lobe of lung Qualified Code(s): J15.7 - Pneumonia due to Mycoplasma pneumoniae
[2023-04-18 07:53] LABS: Basophils # (auto) 0.03 K/uL (0.00-0.20); Basophils % (auto) 0.6 %; Eosinophils # (auto) 0.04 K/uL (0.00-0.50); Eosinophils % (auto) 0.8 %; Hematocrit (blood only) 29.9 % (37.0-47.0); Hemoglobin 10.2 g/dl (12.0-16.0); Immature Granulocytes # (auto) 0.03 K/uL (0.01-0.20); Immature Granulocytes % (auto) 0.6 %; Lymphocytes # (auto) 0.82 K/uL (1.20-3.40); Mean Corpuscular Hemoglobin 26.1 pg (25.0-34.0); Mean Corpuscular Hgb Conc 34.1 g/dL (32.0-36.0); Mean Corpuscular Volume 76.5 fL (80.0-100.0); Mean Platelet Volume 10.4 fL (9.4-12.4); Monocytes % (auto) 12.4 %; Neutrophils % (auto) 68.6 %; Platelet Count 152 K/uL (130-400); RDW Coefficient of Variation 18.3 % (11.5-14.5); RDW Standard Deviation 50.6 fL (36.4-46.3); Red Blood Count 3.91 M/uL (4.20-5.40); White Blood Count 4.82 K/ul (4.8-10.8)
[2023-04-18 08:08] LABS: Albumin Globulin Ratio 1.2 (0.9-2); Albumin Level 3.1 gm/dl (3.4-5.0); Bilirubin,Total 0.4 mg/dl (0.2-1.0); Calcium 8.4 mg/dl (8.6-10.3); Creatinine Clr Calc Pharmacy 105.9 ml/min; Est GFR (African American) 117.7 ml/min; Est GFR (Non-African American) 101.6 ml/min; Globulin 2.6 gm/dl (2.5-4.0); Magnesium 1.9 mg/dl (1.7-2.4); Potassium 3.7 mmol/L (3.5-5.1); Total Protein 5.7 gm/dl (6.0-8.3)
[2023-04-18] MEDS: BENZONATATE 100 MG CAPSULE PO SCH ×2 (08:11→13:13)
[2023-04-18] MEDS ORDERED: MULTIVITAMIN TAB PO SCH (09:00)
--- NOTE | 2023-04-18 13:20 | Discharge Summary ---
Date of Service April 18, 2023 Admission HPI Per Admitting Provider This is a 42-year-old female who has significant past medical history of HTN, Raynaud's disease, flushing, IgA nephropathy and ADHD who presents to ED secondary to cough times few days. Her outpatient records were reviewed. She was seen and evaluated in clinic yesterday secondary to fevers a couple days ago 10 3-1 04, productive cough with purulent sputum, coughing makes it hard to breathe and rhinorrhea. Per outpatient notes she did try Tylenol, Mucinex and dextromethorphan. Outpatient COVID, influenza and RSV test were negative. Positive sick contacts with older child. In clinic today patient's oxygen saturations went as low as 93%. In ED patient had notable lab abnormalities including an H&H 11.1 and 33.0, sodium 128, K3.3, chloride 96, AST 40, ALT 53 and urinalysis with trace protein, +3 blood and leukocyte esterase but negative bacteria. Chest x-ray revealed left lower lung airspace opacity compatible with pneumonia. is at bedside who helps elicit history. Sx started 4-5 days ago with fevers, chills, sweats, cough, nausea and poor appetite. She felt lightheaded today and a, "wall caught her." thinks its from not eating/drinking. She denies vomiting, diarrhea, melena, or hematochezia. She does have blood in urine due to known IGA nephropathy. Admission Exam Per Admitting Provider Constitutional: WD/WN, vitals as above, NAD but appears ill, coughing a lot during exam, sitting up in bed, pleasant, conversing easily Head: Normocephalic, Atraumatic Eyes: PERRL, conjunctivae normal, anicteric sclerae ENMT: external ear and nose normal, oropharynx normal Neck: trachea midline, no thyromegaly normal visual inspection Respiratory: normal respiratory effort, lungs clear to auscultation, no wheeze, rales, rhonchi. Normal insp/exp effort, no accessory muscle use Cardiovascular: RRR, no murmur, no edema Vessels: no JVD or carotid bruit Chest: normal inspection of chest Abdomen: normal bowel sounds, soft, nontender, no hepatosplenomegaly Musculoskeletal: no cyanosis or clubbing, extremities motor strength 5/5 Skin: no rashes, warm and dry normal turgor Neurologic: PERRL, EOMI, accommodation nl, no face palsy, no dysarthria CN's II-XI intact bilaterally and moves all extremities Psychiatric: A+Ox3, euthymic affect Lymphatic: no cervical or axillary lymphadenopathy : deferred Principal Diagnosis Mycoplasma pneumonia Discharge Exam Constitutional: WD/WN, F in NAD, + cough, on RA Head: Normocephalic, Atraumatic Eyes: PERRL, conjunctivae normal, anicteric sclerae ENMT: external ear and nose normal, oropharynx normal Neck: normal visual inspection Respiratory: normal respiratory effort, + mild rhonchi at LLB, no wheezing. Normal insp/exp effort, no accessory muscle use Cardiovascular: RRR, no murmur, no edema Vessels: no JVD or carotid bruit Chest: normal inspection of chest Abdomen: normal bowel sounds, soft, nontender Musculoskeletal: extremities motor strength 5/5 Skin: no rashes, warm and dry Neurologic: PERRL, EOMI, no face palsy, no dysarthria, moves all extremities Psychiatric: A+Ox3, euthymic affect Discharge Data Allergies Allergy/AdvReac Type Severity Reaction Status Date / Time ciprofloxacin Allergy Verified 04/17/23 16:06 corn Allergy Verified 04/18/23 11:43 corn syrup Allergy Verified 04/17/23 16:06 soy Allergy fatigue, Verified 04/17/23 16:06 headache, nausea, vomiting wheat Allergy fatigue Verified 04/17/23 16:06 and headache corn - vegetable Allergy Intermediate fatigue, Uncoded 04/17/23 16:06 N/V, headache FLUROQUIONODE Allergy Unknown UKN Uncoded 04/17/23 16:06 Consultations 04/17/23 16:00 ED Decision to Admit Stat Hospital Course (1) Mycoplasma pneumonia: (2) Acute hyponatremia: (3) Essential hypertension with goal blood pressure less than 140/90: (4) IgA nephropathy: Plan This is a 42-year-old female who has significant past medical history of HTN, Raynaud's disease, flushing, IgA nephropathy and ADHD who presents to ED secondary to cough times few days. Mycoplasma Pneumonia received IV Azithromycin 500mg in ED as well as 2gIV ceftriaxone continue with azithromycin -> switch to PO as pt would like to be discharged supportive care with nebs, anti tussives supplemental o2 if needed, but right now O2 saturations are adequate Acute hyponatremia Acute hypokalemia likely 2/2 poor intake - improved now repleted potassium obtained serum osm, urine na, urine osm received IVF on admission Hold losartan for now Elevated LFTS AST 48, ALT 53 -> 90, 94 no abd pain repeat as outpt, if still elevated -> consider OP US HTN hold amlodipine and losartan for now due to lack of po intake and bp currently adequate resume as able - recommend to hold for next 2 days after discharge - monitor BP at home if able IGA nephropathy follows [facility] protein/blood noted in urine ADHD only takes adderal while working hold for now Total Time Total Time Spent Total Time Spent (In Minutes): 40 Discharge Plan Discharge Items Patient Disposition: Home - Self-Care Reason For Visit: LLL PNUEMONIA Discharge Diagnosis: Mycoplasma pneumonia Activity: Per Instructions section Non-emergency contact: Primary Care Provider Call non-emergency contact if: you have any medication questions and your symptoms worsen Follow-up/Referrals: Tosha Vaca MD [Primary Care Provider] - (Date & Time 04/25/2023 3:20 PM Provider Suresh Wayne MD Department Family Practice [facility] ) Diet: Regular Addtl Attending Provider Instructions: Follow up with primary care physician within 1 week. The appointment was scheduled for you for 04/25/2023. Finish the antibiotic treatment with azithromycin. Hold your blood pressure medications - amlodipine and losartan for at least 2 days. Check your blood pressure if you can at home. Pending Studies at Discharge: Yes Studies:: sputum cultx, blood cultx Stand-Alone Forms: My [facility], Smoking Cessation Medications and DC Order Prescriptions: New azithromycin 250 mg tablet 250 mg PO DAILY 4 Days Qty: 4 0RF guaifenesin 600 mg tablet extended release 12hr 600 mg PO BID 7 Days Qty: 14 0RF Continued dextroamphetamine-amphetamine [Adderall] 12.5 mg tablet 12.5 mg PO BID Rx Instructions: takes in the morning and at lunch time, pt has not been taking due to shortag e, takes methylphenidate instead. propranolol 10 mg tablet 10 mg PO QID PRN (Reason: Anxiety) multivitamin Tablet 1 tab PO DAILY fluticasone propionate 50 mcg/actuation [place],Suspension 1 spray INTRANASAL DAILY Rx Instructions: administer into each nostril omega-3 fatty acids-fish oil 684-1,200 mg Capsule,Delayed Release(Dr/Ec) 1 cap PO DAILY cholecalciferol (vitamin D3) [Vitamin D3] 50 mcg (2,000 unit) Capsule 50 mcg PO DAILY Vitron-C 65 mg iron- 125 mg Tablet,Delayed Release (Dr/Ec) 1 tab PO DAILY dihydroxyaluminum sodium carb 334 mg Tablet,Chewable 334 mg PO QAM zinc-magnesium aspart-vit B6 10-150-3.83 mg Capsule 1 cap PO QAM codeine-guaifenesin 10-100 mg/5 mL liquid 5 ml PO Q4H PRN (Reason: Cough) Held losartan 50 mg tablet 50 mg PO BID Hold Instructions: Resume on 04/20/23. amlodipine 10 mg tablet 10 mg PO DAILY Hold Instructions: Resume on 04/20/23. Discharge Orders: Discharge Order (Routine); Ordered 04/18/23 Ordered By: Karson Brooks/Other Patient Handouts: When You Have Pneumonia, Pneumonia Mycoplasma Admission Data Admit Date/Time: 04/17/23 16:03 Attending Provider: Karson Adames Admit Provider: Quinton Davenport Primary Care Provider: Tosha Vaca Other Providers: Quinton Davenport Other Interventions: Discharge Summary Assessment (RN) Last Done: 04/18/23 13:15
[2023-04-18] MEDS ORDERED: AZITHROMYCIN 500 MG in DEXTROSE 5% 250 ML IV SCH (18:00)
--- NOTE | 2023-04-19 22:47 | Electrocardiogram Report ---
Test Reason : Blood Pressure : / mmHG Vent. Rate : 082 BPM Atrial Rate : 082 BPM P-R Int : 134 ms QRS Dur : 088 ms QT Int : 338 ms P-R-T Axes : 051 025 013 degrees QTc Int : 394 ms Normal sinus rhythm T wave abnormality, consider anterior ischemia Abnormal ECG When compared with ECG of 02-NOV-2022 21:31, No significant change was found Confirmed by Quincy Thomas ([id number]) on 04/19/2023 10:47:34 PM Referred By: Tosha Vaca Confirmed By:Quincy Thomas
== END 2023-04-18 14:05 | disposition home or self-care (01) | DRG 194 ==
LOC: ED 14:02 → INTOOBSV 16:03 → 3W 16:03 → SUATTDRO 16:03 → 3W 22:50